=== PATIENT | female | born 1990 | race Caucasian/White ===

== ENCOUNTER 2016-12-12 19:04 | Emergency (ER) | payer OTHER ==
[~2016-12-12] VITALS: Ht 167.6 cm; Wt 121.8 kg
[2016-12-12] MEDS ORDERED: HYDR25TA PO (19:10)
[2016-12-12] MEDS ORDERED: ATEN25 PO (19:10)
[2016-12-12] MEDS ORDERED: CARV3 PO (19:10)
[2016-12-12 20:08] LABS: APPEARANCE,URINE CLEAR (CLEAR); GLUCOSE, URINE (UA) NEGATIVE (NEGATIVE); KETONES,URINE NEGATIVE (NEGATIVE); LEUKOCYTE ESTERASE ,URINE TRACE (NEGATIVE); PH,URINE 5.5 (5.0-8.0); PROTEIN,URINE SEE CONFIRM (NEGATIVE)
[2016-12-12 20:18] LABS: BASOPHILS # (AUTO) 0.04 K/uL (0.00-0.20); BASOPHILS % (AUTO) 0.4 % (0.0-2.0); EOSINOPHILS # (AUTO) 0.12 K/uL (0.00-0.70); EOSINOPHILS % (AUTO) 1.29 % (1.0-6.0); HEMATOCRIT 43.7 % (36-46); HEMOGLOBIN 14.2 g/dL (12.0-16.0); LYMPHOCYTES # (AUTO) 2.2 K/uL (1.0-4.8); LYMPHOCYTES % (AUTO) 24.3 % (22.0-44.0); MEAN CORPUSCULAR HEMOGLOBIN 26.7 pg (26.0-34.0); MEAN CORPUSCULAR HGB CONC 32.5 G/dL (31.0-37.0); MEAN CORPUSCULAR VOLUME 82 fL (80-100); MONOCYTES # (AUTO) 0.7 K/uL (0.1-1.0); MONOCYTES % (AUTO) 7.1 % (2.0-9.0); NEUTROPHILS # (AUTO) 6.1 K/uL (1.8-7.7); NEUTROPHILS % (AUTO) 66.8 % (40.0-70.0); PLATELET COUNT (AUTO) 267 K/uL (150-450); RED BLOOD CELL COUNT(AUTO) 5.31 MIL/uL (4.00-5.20); RED CELL DISTRIBUTION WIDTH 14.3 % (11.5-14.5); WHITE BLOOD COUNT (AUTO) 9.1 K/uL (4.5-11.0)
[2016-12-12 20:20] LABS: ADD UA MICROSCOPIC YES; OCCULT BLOOD,URINE SMALL (NEGATIVE); SULFOSALICYLIC ACID,URINE 4+ (Negative)
[2016-12-12 20:21] LABS: AMORPHOUS SEDIMENT,UR Few /LPF (None Seen); HYALINE CASTS, URINE 0-2 /LPF (None Seen); SQUAMOUS EPITHELIAL CELL,UR Few /LPF (None Seen)
[2016-12-12 20:26] LABS: CALCIUM, TOTAL 8.6 mg/dL (8.8-10.5); CREATININE 2.36 mg/dL (0.60-1.30); POTASSIUM 3.3 mmol/L (3.5-5.1)
[2016-12-12] MEDS ORDERED: HYDROmorphone 2 MG/ML SYRINGE IVP ONE (20:30)
[2016-12-12] MEDS ORDERED: ONDANSETRON HCL 4 MG/2 ML VIAL IVP ONE (20:30)
[2016-12-12 20:32] LABS: ALBUMIN 3.5 g/dL (3.4-5.0); BILIRUBIN,TOTAL 0.3 mg/dL (0.1-1.0); TOTAL PROTEIN, SERUM 7.8 g/dL (6.4-8.2)
[2016-12-12] MEDS ORDERED: CefTRIAXone 1 GM/DEXTROSE 50 ML IV ONE (21:00)
[2016-12-12] MEDS ORDERED: SODIUM CHLORIDE 0.9% 1,000 ML IV ONE (21:00)
[2016-12-12 21:22] VITALS: BP 128/70
== END 2016-12-12 21:24 | disposition home or self-care (01) ==
LOC: EMS 19:05
DX: N39.0 Urinary tract infection, site not specified (principal); I10 Essential (primary) hypertension; Z88.8 Allergy status to other drugs, medicaments and biological substances
CPT/HCPCS: 36415; 80053; 81001; 83690; 84703; 85025; 87086; 96365; 96375; 99284; J0696; J1170; J2405; J7030

== ENCOUNTER 2016-12-19 22:30 | Emergency (ER) | payer OTHER ==
[~2016-12-19] VITALS: Ht 167.6 cm; Wt 130.0 kg
[~2016-12-19 22:30] MED LIST: ATEN25 PO; CARV3 PO; HYDR25TA PO
[2016-12-19 23:01] LABS: APPEARANCE,URINE CLEAR (CLEAR); GLUCOSE, URINE (UA) NEGATIVE (NEGATIVE); KETONES,URINE NEGATIVE (NEGATIVE); LEUKOCYTE ESTERASE ,URINE TRACE (NEGATIVE); OCCULT BLOOD,URINE TRACE (NEGATIVE); PH,URINE 6.5 (5.0-8.0); PROTEIN,URINE SEE CONFIRM (NEGATIVE)
[2016-12-19 23:03] LABS: ADD UA MICROSCOPIC YES
[2016-12-19 23:15] LABS: SULFOSALICYLIC ACID,URINE 3+ (Negative)
[2016-12-19 23:16] LABS: SQUAMOUS EPITHELIAL CELL,UR Few /LPF (None Seen)
[2016-12-19 23:44] LABS: BASOPHILS % (AUTO) 0.5 % (0.0-2.0); EOSINOPHILS % (AUTO) 1.8 % (1.0-6.0); HEMATOCRIT 40.6 % (36-46); HEMOGLOBIN 13.6 g/dL (12.0-16.0); LYMPHOCYTES # (AUTO) 2.9 K/uL (1.0-4.8); LYMPHOCYTES % (AUTO) 29.1 % (22.0-44.0); MEAN CORPUSCULAR HGB CONC 33.5 G/dL (31.0-37.0); MEAN CORPUSCULAR VOLUME 81 fL (80-100); MONOCYTES # (AUTO) 0.6 K/uL (0.1-1.0); MONOCYTES % (AUTO) 6.5 % (2.0-9.0); NEUTROPHILS # (AUTO) 6.2 K/uL (1.8-7.7); NEUTROPHILS % (AUTO) 62.1 % (40.0-70.0); PLATELET COUNT (AUTO) 261 K/uL (150-450); RED BLOOD CELL COUNT(AUTO) 5.04 MIL/uL (4.00-5.20); RED CELL DISTRIBUTION WIDTH 14.1 % (11.5-14.5)
[2016-12-19 23:58] LABS: CREATININE 1.91 mg/dL (0.60-1.30); POTASSIUM 3.1 mmol/L (3.5-5.1)
[2016-12-20] MEDS ORDERED: MORPHINE SULFATE 4 MG/ML SYRINGE IVP ONE
[2016-12-20] MEDS ORDERED: ONDANSETRON HCL 4 MG/2 ML VIAL IVP ONE
[2016-12-20 00:04] LABS: ALBUMIN 3.5 g/dL (3.4-5.0); BILIRUBIN,TOTAL 0.3 mg/dL (0.1-1.0); TOTAL PROTEIN, SERUM 7.5 g/dL (6.4-8.2)
[2016-12-20] MEDS ORDERED: SODIUM CHLORIDE 0.9% 1,000 ML IV ONE (00:15)
[2016-12-20] MEDS ORDERED: POTASSIUM CHLORIDE 20 MEQ ER TABLET PO ONE (00:15)
[2016-12-20] MEDS ORDERED: HydrALAZINE HCL 20 MG/ML VIAL IVP ONE (01:15)
[2016-12-20] MEDS ORDERED: HYDROmorphone 2 MG/ML SYRINGE IVP ONE ×2 (01:30→04:15)
[2016-12-20] MEDS ORDERED: LABETALOL HCL 5 MG/ML 20 ML VIAL IVP ONE ×2 (03:00→05:30)
[2016-12-20 05:31] VITALS: BP 118/61
== END 2016-12-20 06:11 | disposition home or self-care (01) ==
LOC: EMS 22:31
DX: R10.9 Unspecified abdominal pain (principal); G89.29 Other chronic pain; N28.9 Disorder of kidney and ureter, unspecified; I10 Essential (primary) hypertension; Z88.8 Allergy status to other drugs, medicaments and biological substances
CPT/HCPCS: 36415; 74176; 80053; 81001; 83690; 84484; 84703; 85025; 93005 ×2; 96361; 96374; 96375; 96376; 99285; J0360; J1170; J2270; J2405; J3490; J7030

== ENCOUNTER 2017-10-04 18:28 | Inpatient (IN) | payer OTHER ==
[~2017-10-04] VITALS: Ht 167.6 cm; Wt 108.3 kg
[~2017-10-04 18:28] MED LIST changes: -ATEN25 PO; +ATEN25TA PO
[2017-10-04] MEDS ORDERED: NIFE30TA5 PO (19:04)
[2017-10-04] MEDS ORDERED: FAMO20 PO (19:04)
[2017-10-04] MEDS ORDERED: TOPI25 PO (19:04)
[2017-10-04] MEDS ORDERED: FURO40 PO (19:04)
[2017-10-04] MEDS ORDERED: ONDA4 PO (19:04)
[2017-10-04] MEDS ORDERED: ASPI81 PO (19:04)
[2017-10-04] MEDS ORDERED: FLUO-191 PO (19:04)
[2017-10-04] MEDS ORDERED: MORPHINE SULFATE 4 MG/ML SYRINGE IVP ONE ×2 (19:15→21:00)
[2017-10-04] MEDS ORDERED: LABETALOL HCL 5 MG/ML 20 ML VIAL IVP ONE (19:15)
[2017-10-04] MEDS ORDERED: KETOROLAC TROMETHAMINE 30 MG/ML VIAL IVP ONE (19:15)
[2017-10-04] MEDS ORDERED: ONDANSETRON HCL 4 MG/2 ML VIAL IVP ONE (19:15)
[2017-10-04 19:30] LABS: BASOPHILS % (AUTO) 0.3 % (0.0-2.0); EOSINOPHILS % (AUTO) 1.5 % (1.0-6.0); HEMATOCRIT 40.9 % (36-46); HEMOGLOBIN 13.8 g/dL (12.0-16.0); LYMPHOCYTES # (AUTO) 2.5 K/uL (1.0-4.8); LYMPHOCYTES % (AUTO) 33.3 % (22.0-44.0); MEAN CORPUSCULAR HEMOGLOBIN 27.8 pg (26.0-34.0); MEAN CORPUSCULAR HGB CONC 33.7 G/dL (31.0-37.0); MEAN CORPUSCULAR VOLUME 83 fL (80-100); MONOCYTES # (AUTO) 0.7 K/uL (0.1-1.0); MONOCYTES % (AUTO) 9.3 % (2.0-9.0); NEUTROPHILS # (AUTO) 4.1 K/uL (1.8-7.7); NEUTROPHILS % (AUTO) 55.6 % (40.0-70.0); PLATELET COUNT (AUTO) 236 K/uL (150-450); RED BLOOD CELL COUNT(AUTO) 4.96 MIL/uL (4.00-5.20); RED CELL DISTRIBUTION WIDTH 13.8 % (11.5-14.5)
[2017-10-04 19:49] LABS: ALBUMIN 3.3 g/dL (3.4-5.0); BILIRUBIN,TOTAL 0.3 mg/dL (0.1-1.0); CALCIUM, TOTAL 8.7 mg/dL (8.8-10.5); CREATININE 2.67 mg/dL (0.60-1.30); TOTAL PROTEIN, SERUM 7.3 g/dL (6.4-8.2)
[2017-10-04 19:56] LABS: POTASSIUM 2.9 mmol/L (3.5-5.1)
[2017-10-04] MEDS ORDERED: HydrALAZINE HCL 20 MG/ML VIAL IVP ONE ×2 (20:15→21:00)
[2017-10-04] MEDS ORDERED: POTASSIUM CHLORIDE 20 MEQ ER TABLET PO ONE (20:15)
[2017-10-04 20:27] LABS: APPEARANCE,URINE CLEAR (CLEAR); BILIRUBIN,URINE NEGATIVE (NEGATIVE); GLUCOSE, URINE (UA) NEGATIVE (NEGATIVE); KETONES,URINE NEGATIVE (NEGATIVE); LEUKOCYTE ESTERASE ,URINE NEGATIVE (NEGATIVE); NITRATE,URINE NEGATIVE (NEGATIVE); OCCULT BLOOD,URINE NEGATIVE (NEGATIVE); PH,URINE 7.5 (5.0-8.0); PROTEIN,URINE SEE CONFIRM (NEGATIVE)
[2017-10-04 20:56] LABS: RBC,URINE None Seen /HPF (0-2); SULFOSALICYLIC ACID,URINE 3+ (Negative)
[2017-10-04 20:57] LABS: BACTERIA,URINE Rare /HPF (None Seen); SQUAMOUS EPITHELIAL CELL,UR Few /LPF (None Seen); WBC,URINE 0-2 /HPF (0-5)
[2017-10-04] MEDS ORDERED: ACETAMINOPHEN 325 MG TABLET PO PRN ×2 (21:45→22:30)
[2017-10-04] MEDS ORDERED: DIAZEPAM 5 MG/ML 2 ML SYRINGE IVP ONE (21:45)
[2017-10-04] MEDS ORDERED: ONDANSETRON HCL 4 MG/2 ML VIAL IVP PRN (21:45)
[2017-10-04] MEDS ORDERED: 0.9% SODIUM CHLORIDE 10 ML SYRINGE IVP PRN (21:45)
[2017-10-04] MEDS ORDERED: MAGNESIUM OXIDE 400 MG TABLET PO PRN (22:30)
[2017-10-04] MEDS ORDERED: ALBUTEROL SULFATE 2.5 MG/0.5 ML NEB SOLUTION NEB PRN (22:30)
[2017-10-04] MEDS ORDERED: BISACODYL 10 MG RECTAL RECTAL SUPPOSITORY PR PRN (22:30)
[2017-10-04] MEDS ORDERED: POTASSIUM CHL 10 MEQ/WATER 50 ML IV PRN (22:30)
[2017-10-04] MEDS ORDERED: HydrALAZINE HCL 20 MG/ML VIAL IVP PRN (22:30)
[2017-10-04] MEDS ORDERED: POTASSIUM CHLORIDE 20 MEQ ER TABLET PO PRN (22:30)
[2017-10-04] MEDS ORDERED: MAGNESIUM HYDROXIDE SUSPENSION 30 ML UDCUP PO PRN (22:30)
[2017-10-04] MEDS ORDERED: MAGNESIUM SULFATE 2 GM in DEXTROSE 5%-WATER 50 ML IV PRN (22:30)
[2017-10-04] MEDS ORDERED: IPRATROPIUM BROMIDE 0.5 MG/2.5 ML NEB SOLUTION NEB PRN (22:30)
[2017-10-04] MEDS ORDERED: MAGNESIUM SULFATE 4 GM/WATER 100 ML IV PRN (22:30)
[2017-10-04] MEDS: SODIUM CHLORIDE 0.9% 1,000 ML IV SCH (22:58)
[2017-10-05] VITALS (8 sets, daily range): BP systolic 124–166; BP diastolic 72–115
[2017-10-05] MEDS: MORPHINE SULFATE 4 MG/ML SYRINGE IVP PRN ×4 (00:20→22:30)
[2017-10-05] MEDS ORDERED: DIAZEPAM 2 MG TABLET PO PRN (06:45)
[2017-10-05 08:03] LABS: BASOPHILS % (AUTO) 0.8 % (0.0-2.0); HEMATOCRIT 37.1 % (36-46); HEMOGLOBIN 12.8 g/dL (12.0-16.0); LYMPHOCYTES # (AUTO) 2.2 K/uL (1.0-4.8); LYMPHOCYTES % (AUTO) 33.1 % (22.0-44.0); MEAN CORPUSCULAR HEMOGLOBIN 28.4 pg (26.0-34.0); MEAN CORPUSCULAR HGB CONC 34.4 G/dL (31.0-37.0); MEAN CORPUSCULAR VOLUME 83 fL (80-100); MONOCYTES # (AUTO) 0.6 K/uL (0.1-1.0); MONOCYTES % (AUTO) 9.2 % (2.0-9.0); NEUTROPHILS # (AUTO) 3.6 K/uL (1.8-7.7); NEUTROPHILS % (AUTO) 54.9 % (40.0-70.0); PLATELET COUNT (AUTO) 211 K/uL (150-450)
[2017-10-05 08:31] LABS: BILIRUBIN,TOTAL 0.3 mg/dL (0.1-1.0); CALCIUM, TOTAL 8.6 mg/dL (8.8-10.5); CREATININE 2.57 mg/dL (0.60-1.30); MAGNESIUM 2.2 mg/dL (1.80-2.40); PHOSPHORUS 4.8 mg/dL (2.5-4.9); THYROID STIMULATING HORMONE 1.72 uIU/mL (0.36-3.74); TOTAL PROTEIN, SERUM 6.8 g/dL (6.4-8.2)
[2017-10-05 08:49] LABS: POTASSIUM 2.7 mmol/L (3.5-5.1)
[2017-10-05 08:54] LABS: HEMOGLOBIN A1C 5.2 % (4.5-6.2)
[2017-10-05] MEDS ORDERED: FUROSEMIDE 40 MG TABLET PO SCH ×2 (09:00)
[2017-10-05] MEDS ORDERED: NIFEdipine 30 MG ER TABLET PO SCH (09:00)
[2017-10-05] MEDS ORDERED: POTASSIUM CHLORIDE 20 MEQ ER TABLET PO ONE ×2 (09:30→14:00)
[2017-10-05] MEDS ORDERED: SODIUM CHLORIDE 0.9% 100 ML ONE ×2 (09:41→18:48)
[2017-10-05] MEDS: HEPARIN SODIUM,PORCINE 5,000 UNITS/ML VIAL SQ SCH ×2 (09:46→20:41)
[2017-10-05] MEDS: FAMOTIDINE 20 MG TABLET PO SCH (09:47)
[2017-10-05] MEDS: SODIUM CHLORIDE 0.9% 1,000 ML IV SCH (09:47)
[2017-10-05] MEDS: NIFEdipine 30 MG ER TABLET PO SCH (09:48)
[2017-10-05] MEDS: POTASSIUM CHL 10 MEQ/WATER 50 ML IV SCH ×4 (09:49→18:18)
[2017-10-05] MEDS: CARVEDILOL 25 MG TABLET PO SCH ×2 (10:43→20:41)
[2017-10-05 13:35] LABS: CALCIUM, TOTAL 8.6 mg/dL (8.8-10.5); CREATININE 2.38 mg/dL (0.60-1.30); MAGNESIUM 2.1 mg/dL (1.80-2.40); PHOSPHORUS 3.9 mg/dL (2.5-4.9); POTASSIUM 3.2 mmol/L (3.5-5.1)
[2017-10-05] MEDS ORDERED: CARV6 PO (15:56)
[2017-10-05] MEDS: POTASSIUM CHLORIDE IV SCH (17:44)
[2017-10-05] MEDS: SODIUM CHLORIDE 0.45% IV SCH (17:44)
[2017-10-05] MEDS: HydrALAZINE HCL 25 MG TABLET PO SCH ×2 (18:01→20:41)
[2017-10-05 19:06] LABS: CREATININE,URINE RANDOM 65.1 mg/dL (30.0-125.0)
[2017-10-05] MEDS: OxyCODONE HCL/ACETAMINOPHEN 5-325 MG TABLET PO PRN (21:07)
[2017-10-05] MEDS: ZOLPIDEM TARTRATE 5 MG TABLET PO PRN (23:43)
[2017-10-06 05:47] VITALS: BP 130/77
[2017-10-06 06:50] LABS: BASOPHILS % (AUTO) 0.4 % (0.0-2.0); EOSINOPHILS % (AUTO) 2.6 % (1.0-6.0); HEMATOCRIT 34.4 % (36-46); HEMOGLOBIN 11.8 g/dL (12.0-16.0); LYMPHOCYTES # (AUTO) 3.2 K/uL (1.0-4.8); LYMPHOCYTES % (AUTO) 46.1 % (22.0-44.0); MEAN CORPUSCULAR HEMOGLOBIN 28.8 pg (26.0-34.0); MEAN CORPUSCULAR HGB CONC 34.4 G/dL (31.0-37.0); MEAN CORPUSCULAR VOLUME 84 fL (80-100); MONOCYTES # (AUTO) 0.5 K/uL (0.1-1.0); MONOCYTES % (AUTO) 6.8 % (2.0-9.0); NEUTROPHILS # (AUTO) 3.1 K/uL (1.8-7.7); NEUTROPHILS % (AUTO) 44.1 % (40.0-70.0); PLATELET COUNT (AUTO) 188 K/uL (150-450); RED CELL DISTRIBUTION WIDTH 14.1 % (11.5-14.5)
[2017-10-06 07:01] LABS: CALCIUM, TOTAL 8.4 mg/dL (8.8-10.5); CREATININE 2.57 mg/dL (0.60-1.30); PHOSPHORUS 4.3 mg/dL (2.5-4.9); POTASSIUM 3.3 mmol/L (3.5-5.1)
[2017-10-06 07:40] VITALS: BP 142/92
[2017-10-06] MEDS ORDERED: POTASSIUM CHLORIDE 20 MEQ ER TABLET PO ONE (08:15)
[2017-10-06] MEDS: OxyCODONE HCL/ACETAMINOPHEN 5-325 MG TABLET PO PRN ×2 (08:19→17:57)
[2017-10-06] MEDS: FAMOTIDINE 20 MG TABLET PO SCH (08:19)
[2017-10-06] MEDS: HydrALAZINE HCL 25 MG TABLET PO SCH ×3 (08:19→20:51)
[2017-10-06] MEDS: CARVEDILOL 25 MG TABLET PO SCH ×2 (08:19→20:51)
[2017-10-06] MEDS: HEPARIN SODIUM,PORCINE 5,000 UNITS/ML VIAL SQ SCH ×2 (08:19→20:52)
[2017-10-06] MEDS: NIFEdipine 30 MG ER TABLET PO SCH (08:27)
[2017-10-06] MEDS: SODIUM CHLORIDE 0.45% IV SCH (09:31)
[2017-10-06] MEDS: POTASSIUM CHLORIDE IV SCH (09:31)
[2017-10-06] MEDS ORDERED: DIAZEPAM 5 MG TABLET PO PRN (09:45)
[2017-10-06] MEDS: FLUoxetine HCL 20 MG CAPSULE PO SCH (09:45)
[2017-10-06] MEDS: MORPHINE SULFATE 4 MG/ML SYRINGE IVP PRN ×2 (11:26→20:00)
[2017-10-06 11:38] VITALS: BP 128/68
[2017-10-06 13:39] LABS: CALCIUM, TOTAL 8.5 mg/dL (8.8-10.5); CREATININE 2.46 mg/dL (0.60-1.30); POTASSIUM 3.6 mmol/L (3.5-5.1)
[2017-10-06 15:41] VITALS: BP 128/60
[2017-10-06] MEDS: ONDANSETRON HCL 4 MG/2 ML VIAL IVP PRN (17:56)
[2017-10-06 19:52] VITALS: BP 126/68
[2017-10-06 22:11] VITALS: BP 129/76
[2017-10-06] MEDS: ZOLPIDEM TARTRATE 5 MG TABLET PO PRN (22:28)
[2017-10-07 06:05] VITALS: BP 135/77
[2017-10-07] MEDS: MORPHINE SULFATE 4 MG/ML SYRINGE IVP PRN ×3 (06:25→18:37)
[2017-10-07] MEDS: POTASSIUM CHLORIDE IV SCH ×3 (06:27→20:32)
[2017-10-07] MEDS: SODIUM CHLORIDE 0.45% IV SCH ×3 (06:27→20:32)
[2017-10-07 07:05] LABS: BASOPHILS % (AUTO) 0.3 % (0.0-2.0); EOSINOPHILS % (AUTO) 2.3 % (1.0-6.0); HEMATOCRIT 36.5 % (36-46); HEMOGLOBIN 12.5 g/dL (12.0-16.0); LYMPHOCYTES # (AUTO) 2.6 K/uL (1.0-4.8); LYMPHOCYTES % (AUTO) 35.5 % (22.0-44.0); MEAN CORPUSCULAR HEMOGLOBIN 28.7 pg (26.0-34.0); MEAN CORPUSCULAR HGB CONC 34.3 G/dL (31.0-37.0); MEAN CORPUSCULAR VOLUME 84 fL (80-100); MONOCYTES # (AUTO) 0.5 K/uL (0.1-1.0); MONOCYTES % (AUTO) 6.7 % (2.0-9.0); NEUTROPHILS # (AUTO) 4.1 K/uL (1.8-7.7); NEUTROPHILS % (AUTO) 55.2 % (40.0-70.0); PLATELET COUNT (AUTO) 204 K/uL (150-450); RED BLOOD CELL COUNT(AUTO) 4.37 MIL/uL (4.00-5.20); RED CELL DISTRIBUTION WIDTH 13.9 % (11.5-14.5)
[2017-10-07 07:13] LABS: CALCIUM, TOTAL 8.2 mg/dL (8.8-10.5); CREATININE 2.3 mg/dL (0.60-1.30); MAGNESIUM 2.2 mg/dL (1.80-2.40); PHOSPHORUS 3.9 mg/dL (2.5-4.9); POTASSIUM 3.3 mmol/L (3.5-5.1)
[2017-10-07 07:25] VITALS: BP 140/74
[2017-10-07] MEDS ORDERED: POTASSIUM CHLORIDE 20 MEQ ER TABLET PO ONE (08:15)
[2017-10-07] MEDS: NIFEdipine 30 MG ER TABLET PO SCH (09:16)
[2017-10-07] MEDS: CARVEDILOL 25 MG TABLET PO SCH ×2 (09:16→20:40)
[2017-10-07] MEDS: FAMOTIDINE 20 MG TABLET PO SCH (09:16)
[2017-10-07] MEDS: HydrALAZINE HCL 25 MG TABLET PO SCH ×3 (09:16→20:41)
[2017-10-07] MEDS: HEPARIN SODIUM,PORCINE 5,000 UNITS/ML VIAL SQ SCH ×2 (09:16→20:36)
[2017-10-07] MEDS: FLUoxetine HCL 20 MG CAPSULE PO SCH (09:16)
[2017-10-07 11:12] VITALS: BP 132/78
[2017-10-07] MEDS: ONDANSETRON HCL 4 MG/2 ML VIAL IVP PRN (12:05)
[2017-10-07 15:56] VITALS: BP 128/76
[2017-10-07 19:11] VITALS: BP 140/80
[2017-10-07] MEDS: OxyCODONE HCL/ACETAMINOPHEN 5-325 MG TABLET PO PRN (22:36)
[2017-10-07 23:21] VITALS: BP 123/67
[2017-10-08] MEDS: MORPHINE SULFATE 4 MG/ML SYRINGE IVP PRN ×3 (01:11→14:22)
[2017-10-08 04:26] VITALS: BP 113/67
[2017-10-08 07:08] LABS: CALCIUM, TOTAL 8.5 mg/dL (8.8-10.5); CREATININE 2.43 mg/dL (0.60-1.30); MAGNESIUM 2.2 mg/dL (1.80-2.40); PHOSPHORUS 4.9 mg/dL (2.5-4.9); POTASSIUM 3.6 mmol/L (3.5-5.1)
[2017-10-08 07:17] VITALS: BP 134/76
[2017-10-08] MEDS: HydrALAZINE HCL 25 MG TABLET PO SCH ×2 (07:59→15:53)
[2017-10-08] MEDS: FLUoxetine HCL 20 MG CAPSULE PO SCH (07:59)
[2017-10-08] MEDS: FAMOTIDINE 20 MG TABLET PO SCH (07:59)
[2017-10-08] MEDS: NIFEdipine 30 MG ER TABLET PO SCH (07:59)
[2017-10-08] MEDS: HEPARIN SODIUM,PORCINE 5,000 UNITS/ML VIAL SQ SCH (08:00)
[2017-10-08] MEDS: CARVEDILOL 25 MG TABLET PO SCH (09:00)
[2017-10-08 12:03] VITALS: BP 140/78
[2017-10-08] MEDS ORDERED: HYDR10TA31 PO (12:33)
[2017-10-08 16:01] VITALS: BP 140/94
== END 2017-10-08 17:45 | disposition home or self-care (01) | DRG 194 ==
LOC: EMS 18:29 → 5S 10-05 04:30
PROVIDERS: ADMIT Internal Medicine; ATTEND Internal Medicine
DX: I13.0 Hypertensive heart and chronic kidney disease with heart failure and stage 1 through stage 4 chronic kidney disease, or unspecified chronic kidney disease (principal); I47.2 Ventricular tachycardia; N17.9 Acute kidney failure, unspecified; K76.0 Fatty (change of) liver, not elsewhere classified; I50.21 Acute systolic (congestive) heart failure; F33.1 Major depressive disorder, recurrent, moderate; I69.351 Hemiplegia and hemiparesis following cerebral infarction affecting right dominant side; E83.51 Hypocalcemia; N26.1 Atrophy of kidney (terminal); E87.6 Hypokalemia; E66.9 Obesity, unspecified; I16.1 Hypertensive emergency; K21.9 Gastro-esophageal reflux disease without esophagitis; K29.00 Acute gastritis without bleeding; N18.9 Chronic kidney disease, unspecified; G43.909 Migraine, unspecified, not intractable, without status migrainosus; M54.5 Low back pain; F41.1 Generalized anxiety disorder; D64.9 Anemia, unspecified; Z79.82 Long term (current) use of aspirin; Z79.899 Other long term (current) drug therapy; Z88.8 Allergy status to other drugs, medicaments and biological substances; Z88.5 Allergy status to narcotic agent; Z85.05 Personal history of malignant neoplasm of liver; Z85.43 Personal history of malignant neoplasm of ovary; Z87.440 Personal history of urinary (tract) infections; Z68.38 Body mass index [BMI] 38.0-38.9, adult
CPT/HCPCS: 51702; 74176; 76770; 82306; 82570; 83036; 83735; 84100; 84156; 84300; 84443; 84540; 86038; 86160; 86162; 93005; 96374; 96375; 96376; 99285; J0360; J1644; J1885; J2270; J2405; J3480; J3490; J7030; J7050

== ENCOUNTER 2017-10-11 19:31 | Inpatient (IN) | payer OTHER ==
[~2017-10-11] VITALS: Ht 167.6 cm; Wt 108.7 kg
[~2017-10-11 19:31] MED LIST changes: +ASPI81 PO; -ATEN25TA PO; -CARV3 PO; +CARV6 PO; +FAMO20 PO; +FLUO-191 PO; +FURO40 PO; +HYDR10TA31 PO; -HYDR25TA PO; +NIFE30TA5 PO; +ONDA4 PO; +TOPI25 PO
[2017-10-11 20:09] LABS: BASOPHILS % (AUTO) 0.6 % (0.0-2.0); EOSINOPHILS % (AUTO) 1.7 % (1.0-6.0); HEMATOCRIT 39.1 % (36-46); HEMOGLOBIN 13.3 g/dL (12.0-16.0); LYMPHOCYTES # (AUTO) 2.3 K/uL (1.0-4.8); LYMPHOCYTES % (AUTO) 28.6 % (22.0-44.0); MEAN CORPUSCULAR HEMOGLOBIN 28.4 pg (26.0-34.0); MEAN CORPUSCULAR VOLUME 84 fL (80-100); MONOCYTES # (AUTO) 0.6 K/uL (0.1-1.0); MONOCYTES % (AUTO) 8.1 % (2.0-9.0); NEUTROPHILS # (AUTO) 4.9 K/uL (1.8-7.7); PLATELET COUNT (AUTO) 253 K/uL (150-450); RED BLOOD CELL COUNT(AUTO) 4.68 MIL/uL (4.00-5.20); RED CELL DISTRIBUTION WIDTH 13.6 % (11.5-14.5)
[2017-10-11 21:39] LABS: CALCIUM, TOTAL 8.8 mg/dL (8.8-10.5); CREATININE 2.05 mg/dL (0.60-1.30); POTASSIUM 3.2 mmol/L (3.5-5.1)
[2017-10-11 21:46] LABS: ALBUMIN 3.3 g/dL (3.4-5.0); BILIRUBIN,TOTAL 0.2 mg/dL (0.1-1.0); TOTAL PROTEIN, SERUM 7.4 g/dL (6.4-8.2)
[2017-10-11] MEDS ORDERED: OxyCODONE HCL/ACETAMINOPHEN 5-325 MG TABLET PO ONE (22:15)
[2017-10-11] MEDS ORDERED: 0.9% SODIUM CHLORIDE 10 ML SYRINGE IVP PRN ×2 (22:30→23:45)
[2017-10-11] MEDS ORDERED: ACETAMINOPHEN 325 MG TABLET PO PRN ×2 (22:30→23:45)
[2017-10-11] MEDS ORDERED: ONDANSETRON HCL 4 MG/2 ML VIAL IVP PRN ×2 (22:30→23:45)
[2017-10-11] MEDS ORDERED: HydrOXYzine HCL 50 MG TABLET PO ONE (22:30)
[2017-10-11] MEDS ORDERED: HydrALAZINE HCL 25 MG TABLET PO ONE (23:15)
[2017-10-11] MEDS ORDERED: CARVEDILOL 6.25 MG TABLET PO ONE (23:15)
[2017-10-11] MEDS ORDERED: CARVEDILOL 3.125 MG TABLET PO ONE (23:30)
[2017-10-11] MEDS ORDERED: ONDANSETRON HCL 4 MG TABLET PO PRN (23:45)
[2017-10-11] MEDS ORDERED: ZOLPIDEM TARTRATE 5 MG TABLET PO PRN (23:45)
[2017-10-12] VITALS (7 sets, daily range): BP systolic 142–185; BP diastolic 65–103
[2017-10-12] MEDS: MORPHINE SULFATE 4 MG/ML SYRINGE IVP PRN ×5 (00:05→22:50)
[2017-10-12] MEDS: HEPARIN SODIUM,PORCINE 5,000 UNITS/ML VIAL SQ SCH ×3 (01:15→21:06)
[2017-10-12] MEDS: DEXTROSE 5%-0.9% SODIUM CHL 1,000 ML IV SCH ×2 (01:15→20:00)
[2017-10-12 05:45] LABS: BASOPHILS % (AUTO) 0.6 % (0.0-2.0); HEMATOCRIT 36.2 % (36-46); HEMOGLOBIN 12.5 g/dL (12.0-16.0); LYMPHOCYTES # (AUTO) 2.8 K/uL (1.0-4.8); LYMPHOCYTES % (AUTO) 35.6 % (22.0-44.0); MEAN CORPUSCULAR HEMOGLOBIN 28.8 pg (26.0-34.0); MEAN CORPUSCULAR HGB CONC 34.5 G/dL (31.0-37.0); MEAN CORPUSCULAR VOLUME 83 fL (80-100); MONOCYTES # (AUTO) 0.7 K/uL (0.1-1.0); MONOCYTES % (AUTO) 9.2 % (2.0-9.0); NEUTROPHILS # (AUTO) 4.2 K/uL (1.8-7.7); NEUTROPHILS % (AUTO) 52.6 % (40.0-70.0); PLATELET COUNT (AUTO) 218 K/uL (150-450); RED BLOOD CELL COUNT(AUTO) 4.35 MIL/uL (4.00-5.20); RED CELL DISTRIBUTION WIDTH 13.8 % (11.5-14.5)
[2017-10-12 07:34] LABS: CALCIUM, TOTAL 8.5 mg/dL (8.8-10.5); CREATININE 2.08 mg/dL (0.60-1.30); MAGNESIUM 2.3 mg/dL (1.80-2.40)
[2017-10-12 07:42] LABS: POTASSIUM 2.9 mmol/L (3.5-5.1)
[2017-10-12] MEDS: PANTOPRAZOLE SODIUM 40 MG/VIAL IVP SCH (09:20)
[2017-10-12] MEDS: ASPIRIN 81 MG CHEWABLE TABLET PO SCH (09:20)
[2017-10-12] MEDS: CARVEDILOL 6.25 MG TABLET PO SCH ×2 (09:20→21:05)
[2017-10-12] MEDS: FLUoxetine HCL 20 MG CAPSULE PO SCH (09:20)
[2017-10-12] MEDS: DOCUSATE SODIUM 100 MG CAPSULE PO SCH ×2 (09:20→21:00)
[2017-10-12] MEDS: TOPIRAMATE 25 MG TABLET PO SCH ×2 (09:21→21:05)
[2017-10-12] MEDS: NIFEdipine 30 MG ER TABLET PO SCH (09:21)
[2017-10-12] MEDS: HydrALAZINE HCL 25 MG TABLET PO SCH ×3 (09:21→21:04)
[2017-10-12] MEDS: POTASSIUM CHL 10 MEQ/WATER 50 ML IV SCH ×3 (10:14→15:47)
[2017-10-12] MEDS ORDERED: POTASSIUM CHLORIDE 20 MEQ ER TABLET PO ONE (13:00)
[2017-10-12 14:35] LABS: CHLORIDE,URINE RANDOM 81 mmol/L (55-125); CREATININE,URINE RANDOM 73.1 mg/dL (30.0-125.0); OSMOLALITY,URINE 371 mOS/kg (50-1200); POTASSIUM,URINE RANDOM 31 mmol/L (12-75); PROTEIN,URINE RANDOM 188 mg/dL (0-11.9); SODIUM,URINE RANDOM 79 mmol/l (20-110)
[2017-10-12 15:26] LABS: APPEARANCE,URINE CLOUDY (CLEAR); BILIRUBIN,URINE NEGATIVE (NEGATIVE); GLUCOSE, URINE (UA) NEGATIVE (NEGATIVE); KETONES,URINE NEGATIVE (NEGATIVE); LEUKOCYTE ESTERASE ,URINE TRACE (NEGATIVE); NITRATE,URINE NEGATIVE (NEGATIVE); OCCULT BLOOD,URINE TRACE (NEGATIVE); PH,URINE 6.5 (5.0-8.0); PROTEIN,URINE SEE CONFIRM (NEGATIVE); UROBILINOGEN,URINE 0.2 mg/dL (<=1.0)
[2017-10-12 15:37] LABS: SULFOSALICYLIC ACID,URINE 3+ (Negative)
[2017-10-12 15:39] LABS: RBC,URINE 0-2 /HPF (0-2)
[2017-10-12 15:40] LABS: BACTERIA,URINE Moderate /HPF (None Seen); SQUAMOUS EPITHELIAL CELL,UR Few /LPF (None Seen)
[2017-10-13] VITALS (8 sets, daily range): BP systolic 132–164; BP diastolic 70–105
[2017-10-13] MEDS: MORPHINE SULFATE 4 MG/ML SYRINGE IVP PRN ×4 (00:10→23:45)
[2017-10-13 06:39] LABS: BILIRUBIN,TOTAL 0.3 mg/dL (0.1-1.0); CALCIUM, TOTAL 8.6 mg/dL (8.8-10.5); CREATININE 2.09 mg/dL (0.60-1.30); POTASSIUM 3.4 mmol/L (3.5-5.1); TOTAL PROTEIN, SERUM 6.8 g/dL (6.4-8.2)
[2017-10-13] MEDS: CARVEDILOL 6.25 MG TABLET PO SCH ×2 (08:01→20:16)
[2017-10-13] MEDS: PANTOPRAZOLE SODIUM 40 MG/VIAL IVP SCH (08:01)
[2017-10-13] MEDS: ASPIRIN 81 MG CHEWABLE TABLET PO SCH (08:02)
[2017-10-13] MEDS: HEPARIN SODIUM,PORCINE 5,000 UNITS/ML VIAL SQ SCH ×2 (08:02→20:16)
[2017-10-13] MEDS: DOCUSATE SODIUM 100 MG CAPSULE PO SCH ×2 (08:02→20:16)
[2017-10-13] MEDS: HydrALAZINE HCL 25 MG TABLET PO SCH (08:03)
[2017-10-13] MEDS: NIFEdipine 30 MG ER TABLET PO SCH (08:03)
[2017-10-13] MEDS: TOPIRAMATE 25 MG TABLET PO SCH ×2 (08:03→20:16)
[2017-10-13] MEDS: FLUoxetine HCL 20 MG CAPSULE PO SCH (08:03)
[2017-10-13] MEDS: HydrALAZINE HCL 50 MG TABLET PO SCH ×2 (16:20→20:16)
[2017-10-13] MEDS: DEXTROSE 5%-0.9% SODIUM CHL 1,000 ML IV SCH (16:20)
[2017-10-14] VITALS (7 sets, daily range): BP systolic 121–156; BP diastolic 79–89
[2017-10-14] MEDS: MORPHINE SULFATE 4 MG/ML SYRINGE IVP PRN ×5 (05:37→22:46)
[2017-10-14 06:01] LABS: BASOPHILS % (AUTO) 0.8 % (0.0-2.0); EOSINOPHILS % (AUTO) 1.5 % (1.0-6.0); HEMATOCRIT 36.9 % (36-46); HEMOGLOBIN 12.4 g/dL (12.0-16.0); LYMPHOCYTES # (AUTO) 2.7 K/uL (1.0-4.8); LYMPHOCYTES % (AUTO) 41.9 % (22.0-44.0); MEAN CORPUSCULAR HEMOGLOBIN 28.4 pg (26.0-34.0); MEAN CORPUSCULAR HGB CONC 33.6 G/dL (31.0-37.0); MEAN CORPUSCULAR VOLUME 85 fL (80-100); MONOCYTES # (AUTO) 0.7 K/uL (0.1-1.0); MONOCYTES % (AUTO) 11.2 % (2.0-9.0); NEUTROPHILS # (AUTO) 2.9 K/uL (1.8-7.7); NEUTROPHILS % (AUTO) 44.6 % (40.0-70.0); PLATELET COUNT (AUTO) 220 K/uL (150-450); RED BLOOD CELL COUNT(AUTO) 4.36 MIL/uL (4.00-5.20); RED CELL DISTRIBUTION WIDTH 13.8 % (11.5-14.5)
[2017-10-14 06:19] LABS: CALCIUM, TOTAL 8.4 mg/dL (8.8-10.5); CREATININE 2.2 mg/dL (0.60-1.30); POTASSIUM 3.4 mmol/L (3.5-5.1)
[2017-10-14] MEDS: PANTOPRAZOLE SODIUM 40 MG/VIAL IVP SCH (09:20)
[2017-10-14] MEDS: DOCUSATE SODIUM 100 MG CAPSULE PO SCH ×2 (09:20→21:07)
[2017-10-14] MEDS: CARVEDILOL 6.25 MG TABLET PO SCH ×2 (09:20→21:07)
[2017-10-14] MEDS: ASPIRIN 81 MG CHEWABLE TABLET PO SCH (09:20)
[2017-10-14] MEDS: HEPARIN SODIUM,PORCINE 5,000 UNITS/ML VIAL SQ SCH ×2 (09:20→21:07)
[2017-10-14] MEDS: TOPIRAMATE 25 MG TABLET PO SCH ×2 (09:21→21:07)
[2017-10-14] MEDS: NIFEdipine 30 MG ER TABLET PO SCH (09:21)
[2017-10-14] MEDS: FLUoxetine HCL 20 MG CAPSULE PO SCH (09:21)
[2017-10-14] MEDS: HydrALAZINE HCL 50 MG TABLET PO SCH ×3 (09:21→22:46)
[2017-10-14] MEDS ORDERED: DiphenhydrAMINE HCL 50 MG/ML VIAL IVP ONE (21:30)
[2017-10-15 05:17] VITALS: BP 136/71
[2017-10-15] MEDS: MORPHINE SULFATE 4 MG/ML SYRINGE IVP PRN ×3 (05:29→14:23)
[2017-10-15 06:30] LABS: BASOPHILS % (AUTO) 0.5 % (0.0-2.0); EOSINOPHILS % (AUTO) 1.8 % (1.0-6.0); HEMATOCRIT 36.4 % (36-46); HEMOGLOBIN 12.4 g/dL (12.0-16.0); LYMPHOCYTES # (AUTO) 2.7 K/uL (1.0-4.8); LYMPHOCYTES % (AUTO) 41.9 % (22.0-44.0); MEAN CORPUSCULAR HEMOGLOBIN 28.6 pg (26.0-34.0); MEAN CORPUSCULAR HGB CONC 34.1 G/dL (31.0-37.0); MEAN CORPUSCULAR VOLUME 84 fL (80-100); MONOCYTES # (AUTO) 0.5 K/uL (0.1-1.0); MONOCYTES % (AUTO) 8.5 % (2.0-9.0); NEUTROPHILS # (AUTO) 3.1 K/uL (1.8-7.7); NEUTROPHILS % (AUTO) 47.3 % (40.0-70.0); PLATELET COUNT (AUTO) 248 K/uL (150-450); RED BLOOD CELL COUNT(AUTO) 4.34 MIL/uL (4.00-5.20); RED CELL DISTRIBUTION WIDTH 13.8 % (11.5-14.5)
[2017-10-15 08:00] VITALS: BP 139/79
[2017-10-15] MEDS: HEPARIN SODIUM,PORCINE 5,000 UNITS/ML VIAL SQ SCH (08:21)
[2017-10-15] MEDS: PANTOPRAZOLE SODIUM 40 MG/VIAL IVP SCH (08:21)
[2017-10-15] MEDS: TOPIRAMATE 25 MG TABLET PO SCH ×2 (08:22→20:06)
[2017-10-15] MEDS: NIFEdipine 30 MG ER TABLET PO SCH (08:22)
[2017-10-15] MEDS: DOCUSATE SODIUM 100 MG CAPSULE PO SCH ×2 (08:22→20:06)
[2017-10-15] MEDS: HydrALAZINE HCL 50 MG TABLET PO SCH ×2 (08:22→18:06)
[2017-10-15] MEDS: FLUoxetine HCL 20 MG CAPSULE PO SCH (08:22)
[2017-10-15] MEDS: ASPIRIN 81 MG CHEWABLE TABLET PO SCH (08:22)
[2017-10-15] MEDS: CARVEDILOL 6.25 MG TABLET PO SCH ×2 (08:22→20:06)
[2017-10-15] MEDS ORDERED: SPIRONOLACTONE 25 MG TABLET PO SCH (09:45)
[2017-10-15 09:57] LABS: CALCIUM, TOTAL 8.5 mg/dL (8.8-10.5); CREATININE 2.17 mg/dL (0.60-1.30); POTASSIUM 3.3 mmol/L (3.5-5.1)
[2017-10-15] MEDS ORDERED: HYDR25TA84 PO (11:05)
[2017-10-15] MEDS ORDERED: POTASSIUM CHLORIDE 20 MEQ ER TABLET PO ONE (11:15)
[2017-10-15 13:16] VITALS: BP 110/82
[2017-10-15 16:58] VITALS: BP 139/75
[2017-10-15] MEDS ORDERED: SPIR1TAB4 PO (17:16)
[2017-10-15] MEDS ORDERED: TRAM50TA4 PO (18:53)
== END 2017-10-15 20:55 | disposition home or self-care (01) | DRG 251 ==
LOC: EMS 19:33 → 4E 22:37 → 6N 10-13 11:40
PROVIDERS: ADMIT Internal Medicine; ATTEND Internal Medicine
DX: R10.9 Unspecified abdominal pain (principal); N17.9 Acute kidney failure, unspecified; K76.0 Fatty (change of) liver, not elsewhere classified; N18.4 Chronic kidney disease, stage 4 (severe); I12.9 Hypertensive chronic kidney disease with stage 1 through stage 4 chronic kidney disease, or unspecified chronic kidney disease; E87.6 Hypokalemia; F41.1 Generalized anxiety disorder; G43.909 Migraine, unspecified, not intractable, without status migrainosus; R31.9 Hematuria, unspecified; E66.9 Obesity, unspecified; Z88.8 Allergy status to other drugs, medicaments and biological substances; Z79.899 Other long term (current) drug therapy; Z79.82 Long term (current) use of aspirin; Z85.05 Personal history of malignant neoplasm of liver; Z85.43 Personal history of malignant neoplasm of ovary; Z86.73 Personal history of transient ischemic attack (TIA), and cerebral infarction without residual deficits; Z87.440 Personal history of urinary (tract) infections; Z92.21 Personal history of antineoplastic chemotherapy; Z82.49 Family history of ischemic heart disease and other diseases of the circulatory system; Z83.3 Family history of diabetes mellitus; Z68.38 Body mass index [BMI] 38.0-38.9, adult
CPT/HCPCS: 74176; 76700; 82436; 82570; 83735; 83935; 84133; 84156; 84300; 87086; 99285; C9113; J1200; J1644; J2270; J2405; J3480; J7042

== ENCOUNTER 2017-11-01 01:29 | Inpatient (IN) | payer OTHER ==
[~2017-11-01] VITALS: Ht 167.6 cm; Wt 112.7 kg
[~2017-11-01 01:29] MED LIST changes: -HYDR10TA31 PO; +HYDR25TA84 PO; +SPIR1TAB4 PO; +TRAM50TA4 PO
[2017-11-01] MEDS ORDERED: LOSA50TA37 PO (01:39)
[2017-11-01] MEDS ORDERED: TRAZ-144 PO (02:20)
[2017-11-01] MEDS ORDERED: HYDR-4174 PO (02:20)
[2017-11-01] MEDS ORDERED: FURO40 PO (02:20)
[2017-11-01 02:25] LABS: BASOPHILS % (AUTO) 0.5 % (0.0-2.0); EOSINOPHILS % (AUTO) 1.6 % (1.0-6.0); HEMATOCRIT 36.6 % (36-46); HEMOGLOBIN 12.4 g/dL (12.0-16.0); LYMPHOCYTES # (AUTO) 2.6 K/uL (1.0-4.8); LYMPHOCYTES % (AUTO) 32.3 % (22.0-44.0); MEAN CORPUSCULAR HEMOGLOBIN 28.5 pg (26.0-34.0); MEAN CORPUSCULAR HGB CONC 33.8 G/dL (31.0-37.0); MEAN CORPUSCULAR VOLUME 84 fL (80-100); MONOCYTES # (AUTO) 0.6 K/uL (0.1-1.0); MONOCYTES % (AUTO) 7.9 % (2.0-9.0); NEUTROPHILS # (AUTO) 4.7 K/uL (1.8-7.7); NEUTROPHILS % (AUTO) 57.7 % (40.0-70.0); PLATELET COUNT (AUTO) 207 K/uL (150-450); RED BLOOD CELL COUNT(AUTO) 4.34 MIL/uL (4.00-5.20); RED CELL DISTRIBUTION WIDTH 13.6 % (11.5-14.5)
[2017-11-01 02:34] LABS: ANION GAP 11 mmol/L (8-16); CALCIUM, TOTAL 8.4 mg/dL (8.8-10.5); CARBON DIOXIDE 21 mmol/L (22-29); CHLORIDE 107 mmol/L (98-107); CREATININE 2.71 mg/dL (0.60-1.30); GLOMERULAR FILTR. RATE CALC 21 mL/min (>60); GLUCOSE,RANDOM 87 mg/dL (70-110); POTASSIUM 3.9 mmol/L (3.5-5.1); SODIUM SERUM 139 mmol/L (136-145); UREA NITROGEN, BLOOD 25 mg/dL (7-18)
[2017-11-01 02:40] LABS: ALANINE AMINOTRANSFERASE 21 U/L (12-78); ALBUMIN 3.2 g/dL (3.4-5.0); ALKALINE PHOSPHATASE 73 U/L (46-116); ASPARTATE AMINOTRANSFERASE 10 U/L (15-37); BILIRUBIN,TOTAL 0.2 mg/dL (0.1-1.0); LIPASE 193 U/L (73-393); TOTAL PROTEIN, SERUM 6.8 g/dL (6.4-8.2)
[2017-11-01] MEDS ORDERED: MORPHINE SULFATE 2 MG/ML SYRINGE IVP ONE (02:45)
[2017-11-01] MEDS ORDERED: DiphenhydrAMINE HCL 50 MG/ML VIAL IVP ONE (02:45)
[2017-11-01] MEDS ORDERED: HYDR-3112 PO (02:55)
[2017-11-01] MEDS ORDERED: ASPI81TA87 PO (02:55)
[2017-11-01] MEDS ORDERED: ONDA4TAB7 SL (02:55)
[2017-11-01] MEDS ORDERED: TRAM50TA4 PO (02:55)
[2017-11-01] MEDS ORDERED: ACETAMINOPHEN 325 MG TABLET PO PRN (04:00)
[2017-11-01] MEDS ORDERED: MORPHINE SULFATE 4 MG/ML SYRINGE IVP PRN (04:00)
[2017-11-01] MEDS ORDERED: 0.9% SODIUM CHLORIDE 10 ML SYRINGE IVP PRN ×2 (04:00→08:45)
[2017-11-01] MEDS ORDERED: DiphenhydrAMINE HCL 50 MG/ML VIAL IVP PRN (04:00)
[2017-11-01] MEDS ORDERED: ONDANSETRON HCL 4 MG/2 ML VIAL IVP PRN ×2 (04:00→08:45)
[2017-11-01 05:30] VITALS: BP 109/72
[2017-11-01] MEDS ORDERED: TraMADol HCL 50 MG TABLET PO PRN (08:45)
[2017-11-01] MEDS ORDERED: ZOLPIDEM TARTRATE 5 MG TABLET PO PRN (08:45)
[2017-11-01] MEDS ORDERED: FUROSEMIDE 40 MG TABLET PO SCH (09:00)
[2017-11-01] MEDS: HydrALAZINE HCL 50 MG TABLET PO SCH ×3 (09:00→21:07)
[2017-11-01] MEDS: CARVEDILOL 6.25 MG TABLET PO SCH ×2 (09:00→21:00)
[2017-11-01] MEDS ORDERED: MORPHINE SULFATE 2 MG/ML SYRINGE IVP PRN (09:00)
[2017-11-01] MEDS ORDERED: LOSARTAN POTASSIUM 50 MG TABLET PO SCH (09:00)
[2017-11-01] MEDS: FLUoxetine HCL 20 MG CAPSULE PO SCH (09:46)
[2017-11-01] MEDS: ASPIRIN 81 MG EC TABLET PO SCH (09:46)
[2017-11-01] MEDS: TOPIRAMATE 25 MG TABLET PO SCH ×2 (09:46→21:00)
[2017-11-01] MEDS: TraZODone HCL 50 MG TABLET PO SCH ×2 (09:46→21:00)
[2017-11-01] MEDS: NIFEdipine 30 MG ER TABLET PO SCH (09:46)
[2017-11-01] MEDS: PANTOPRAZOLE SODIUM 40 MG/VIAL IVP SCH (09:47)
[2017-11-01] MEDS ORDERED: SPIR25 PO (11:02)
[2017-11-01 11:38] VITALS: BP 108/66
[2017-11-01] MEDS: MORPHINE SULFATE 4 MG/ML SYRINGE IVP PRN ×3 (12:09→21:07)
[2017-11-01 15:49] VITALS: BP 137/71
[2017-11-01] MEDS: HEPARIN SODIUM,PORCINE 5,000 UNITS/ML VIAL SQ SCH (17:20)
[2017-11-01 19:25] VITALS: BP 116/75
[2017-11-01 20:55] LABS: CREATININE,URINE RANDOM 139.8 mg/dL (30.0-125.0)
[2017-11-01 20:57] LABS: AMPHET/METH SCREEN,URINE NEGATIVE (NEGATIVE); BARBITURATE SCREEN, URINE NEGATIVE (NEGATIVE); BENZODIAZEPINES SCREEN,URINE NEGATIVE (NEGATIVE); CANNABINOID SCREEN,URINE NEGATIVE (NEGATIVE); COCAINE SCREEN,URINE NEGATIVE (NEGATIVE); METHADONE SCREEN, URINE NEGATIVE (NEGATIVE); OPIATE SCREEN,URINE POSITIVE (NEGATIVE)
[2017-11-01 20:58] LABS: APPEARANCE,URINE CLOUDY (CLEAR); BILIRUBIN,URINE NEGATIVE (NEGATIVE); GLUCOSE, URINE (UA) NEGATIVE (NEGATIVE); KETONES,URINE NEGATIVE (NEGATIVE); LEUKOCYTE ESTERASE ,URINE TRACE (NEGATIVE); NITRATE,URINE NEGATIVE (NEGATIVE); OCCULT BLOOD,URINE LARGE (NEGATIVE); PH,URINE 5.5 (5.0-8.0); PROTEIN,URINE POS 1+ (NEGATIVE); UROBILINOGEN,URINE 0.2 mg/dL (<=1.0)
[2017-11-01 20:59] LABS: PHENCYCLIDINE SCREEN,URINE NEGATIVE (NEGATIVE)
[2017-11-01 21:27] LABS: BACTERIA,URINE Few /HPF (None Seen); RBC,URINE 51-100 /HPF (0-2); SQUAMOUS EPITHELIAL CELL,UR Moderate /LPF (None Seen); YEAST,URINE Rare /HPF (None Seen)
[2017-11-01 23:23] VITALS: BP 109/60
[2017-11-02] MEDS: HEPARIN SODIUM,PORCINE 5,000 UNITS/ML VIAL SQ SCH ×3 (00:05→19:53)
[2017-11-02 04:20] VITALS: BP 118/59
[2017-11-02] MEDS: MORPHINE SULFATE 4 MG/ML SYRINGE IVP PRN ×4 (04:28→19:54)
[2017-11-02 06:57] LABS: BASOPHILS % (AUTO) 0.3 % (0.0-2.0); EOSINOPHILS % (AUTO) 1.3 % (1.0-6.0); HEMATOCRIT 35.5 % (36-46); LYMPHOCYTES # (AUTO) 2.4 K/uL (1.0-4.8); LYMPHOCYTES % (AUTO) 33.4 % (22.0-44.0); MEAN CORPUSCULAR HEMOGLOBIN 28.5 pg (26.0-34.0); MEAN CORPUSCULAR HGB CONC 33.8 G/dL (31.0-37.0); MEAN CORPUSCULAR VOLUME 84 fL (80-100); MONOCYTES # (AUTO) 0.5 K/uL (0.1-1.0); MONOCYTES % (AUTO) 7.1 % (2.0-9.0); NEUTROPHILS # (AUTO) 4.1 K/uL (1.8-7.7); NEUTROPHILS % (AUTO) 57.9 % (40.0-70.0); PLATELET COUNT (AUTO) 208 K/uL (150-450); RED CELL DISTRIBUTION WIDTH 13.5 % (11.5-14.5)
[2017-11-02 07:22] VITALS: BP 149/82
[2017-11-02 07:32] LABS: CALCIUM, TOTAL 8.2 mg/dL (8.8-10.5); CREATININE 2.59 mg/dL (0.60-1.30); MAGNESIUM 2.2 mg/dL (1.80-2.40); POTASSIUM 3.7 mmol/L (3.5-5.1)
[2017-11-02] MEDS: NIFEdipine 30 MG ER TABLET PO SCH (09:09)
[2017-11-02] MEDS: PANTOPRAZOLE SODIUM 40 MG/VIAL IVP SCH ×2 (09:09→09:18)
[2017-11-02] MEDS: TOPIRAMATE 25 MG TABLET PO SCH ×2 (09:09→19:53)
[2017-11-02] MEDS: FLUoxetine HCL 20 MG CAPSULE PO SCH (09:09)
[2017-11-02] MEDS: ASPIRIN 81 MG EC TABLET PO SCH (09:33)
[2017-11-02] MEDS: CARVEDILOL 6.25 MG TABLET PO SCH ×2 (09:33→19:53)
[2017-11-02] MEDS: HydrALAZINE HCL 50 MG TABLET PO SCH ×3 (10:43→19:53)
[2017-11-02] MEDS: TraZODone HCL 50 MG TABLET PO SCH ×2 (10:43→21:29)
[2017-11-02] MEDS: SPIRONOLACTONE 25 MG TABLET PO SCH (11:14)
[2017-11-02 11:36] VITALS: BP 112/66
[2017-11-02 15:18] VITALS: BP 116/71
[2017-11-02] MEDS ORDERED: CefTRIAXone SODIUM 1 GM in DEXTROSE 5%-WATER 10 ML IV SCH (16:00)
[2017-11-02 19:50] VITALS: BP 101/61
[2017-11-02 23:48] VITALS: BP 98/57
[2017-11-03] MEDS: MORPHINE SULFATE 4 MG/ML SYRINGE IVP PRN ×2 (04:57→08:37)
[2017-11-03 05:09] VITALS: BP 117/81
[2017-11-03 07:14] LABS: CALCIUM, TOTAL 8.4 mg/dL (8.8-10.5); CREATININE 2.5 mg/dL (0.60-1.30); POTASSIUM 3.8 mmol/L (3.5-5.1)
[2017-11-03 07:42] VITALS: BP 110/70
[2017-11-03] MEDS: FLUoxetine HCL 20 MG CAPSULE PO SCH (08:28)
[2017-11-03] MEDS: NIFEdipine 30 MG ER TABLET PO SCH (08:28)
[2017-11-03] MEDS: TOPIRAMATE 25 MG TABLET PO SCH (08:29)
[2017-11-03] MEDS: ASPIRIN 81 MG EC TABLET PO SCH (08:34)
[2017-11-03] MEDS: SPIRONOLACTONE 25 MG TABLET PO SCH (08:36)
[2017-11-03] MEDS: HEPARIN SODIUM,PORCINE 5,000 UNITS/ML VIAL SQ SCH (08:36)
[2017-11-03] MEDS: CARVEDILOL 6.25 MG TABLET PO SCH (08:36)
[2017-11-03] MEDS: TraZODone HCL 50 MG TABLET PO SCH (08:36)
[2017-11-03] MEDS: HydrALAZINE HCL 50 MG TABLET PO SCH (08:42)
[2017-11-03 11:25] VITALS: BP 105/66
== END 2017-11-03 12:55 | disposition home or self-care (01) | DRG 469 ==
LOC: EMS 01:30 → 6N 04:14 → 4E 11-02 10:19
PROVIDERS: ADMIT Internal Medicine; ATTEND Internal Medicine
DX: N17.9 Acute kidney failure, unspecified (principal); E44.0 Moderate protein-calorie malnutrition; N18.4 Chronic kidney disease, stage 4 (severe); E66.01 Morbid (severe) obesity due to excess calories; E87.6 Hypokalemia; F41.1 Generalized anxiety disorder; G89.29 Other chronic pain; I12.9 Hypertensive chronic kidney disease with stage 1 through stage 4 chronic kidney disease, or unspecified chronic kidney disease; G43.909 Migraine, unspecified, not intractable, without status migrainosus; N39.0 Urinary tract infection, site not specified; Z90.49 Acquired absence of other specified parts of digestive tract; Z79.899 Other long term (current) drug therapy; Z88.8 Allergy status to other drugs, medicaments and biological substances; Z91.013 Allergy to seafood; Z91.012 Allergy to eggs; Z92.21 Personal history of antineoplastic chemotherapy; Z85.05 Personal history of malignant neoplasm of liver; Z85.43 Personal history of malignant neoplasm of ovary; Z86.73 Personal history of transient ischemic attack (TIA), and cerebral infarction without residual deficits; Z82.49 Family history of ischemic heart disease and other diseases of the circulatory system; Z68.41 Body mass index [BMI] 40.0-44.9, adult
CPT/HCPCS: 76830; 76856; 82570; 83735; 84156; 87081; 87086; 96374; 96375; 99285; C9113; G0480; J0696; J1200; J1644; J2270; J7060

== ENCOUNTER 2017-12-09 22:27 | Emergency (ER) | payer OTHER ==
[~2017-12-09] VITALS: Ht 167.6 cm; Wt 100.0 kg
[~2017-12-09 22:27] MED LIST changes: -ASPI81 PO; +ASPI81TA87 PO; +HYDR-4174 PO; -HYDR25TA84 PO; -ONDA4 PO; +ONDA4TAB7 SL; -SPIR1TAB4 PO; +SPIR25 PO; -TRAM50TA4 PO
[2017-12-09] MEDS ORDERED: DEPOP150I IM (22:56)
[2017-12-09 23:00] LABS: BASOPHILS % (AUTO) 0.5 % (0.0-2.0); EOSINOPHILS % (AUTO) 1.8 % (1.0-6.0); HEMATOCRIT 35.4 % (36-46); HEMOGLOBIN 11.9 g/dL (12.0-16.0); LYMPHOCYTES % (AUTO) 37.8 % (22.0-44.0); MEAN CORPUSCULAR HEMOGLOBIN 27.3 pg (26.0-34.0); MEAN CORPUSCULAR HGB CONC 33.6 G/dL (31.0-37.0); MEAN CORPUSCULAR VOLUME 81 fL (80-100); MONOCYTES # (AUTO) 0.8 K/uL (0.1-1.0); MONOCYTES % (AUTO) 10.5 % (2.0-9.0); NEUTROPHILS % (AUTO) 49.4 % (40.0-70.0); PLATELET COUNT (AUTO) 231 K/uL (150-450); RED BLOOD CELL COUNT(AUTO) 4.35 MIL/uL (4.00-5.20); RED CELL DISTRIBUTION WIDTH 13.9 % (11.5-14.5)
[2017-12-10 00:02] LABS: CALCIUM, TOTAL 8.4 mg/dL (8.8-10.5); CREATININE 2.22 mg/dL (0.60-1.30); POTASSIUM 3.7 mmol/L (3.5-5.1)
[2017-12-10 00:07] LABS: ALBUMIN 3.4 g/dL (3.4-5.0); BILIRUBIN,TOTAL 0.2 mg/dL (0.1-1.0); TOTAL PROTEIN, SERUM 6.9 g/dL (6.4-8.2)
[2017-12-10 00:38] LABS: APPEARANCE,URINE CLEAR (CLEAR); BILIRUBIN,URINE NEGATIVE (NEGATIVE); GLUCOSE, URINE (UA) NEGATIVE (NEGATIVE); KETONES,URINE NEGATIVE (NEGATIVE); LEUKOCYTE ESTERASE ,URINE NEGATIVE (NEGATIVE); NITRATE,URINE NEGATIVE (NEGATIVE); OCCULT BLOOD,URINE NEGATIVE (NEGATIVE); PROTEIN,URINE SEE CONFIRM (NEGATIVE); UROBILINOGEN,URINE 0.2 mg/dL (<=1.0)
[2017-12-10 00:50] LABS: SULFOSALICYLIC ACID,URINE 3+ (Negative)
[2017-12-10 00:51] LABS: BACTERIA,URINE Rare /HPF (None Seen); RBC,URINE 0-2 /HPF (0-2); SQUAMOUS EPITHELIAL CELL,UR Rare /LPF (None Seen); WBC,URINE 0-2 /HPF (0-5)
[2017-12-10] MEDS ORDERED: MORPHINE SULFATE 4 MG/ML SYRINGE IM ONE (01:30)
[2017-12-10] MEDS ORDERED: HydrALAZINE HCL 25 MG TABLET PO ONE (03:00)
[2017-12-10] MEDS ORDERED: NIFEdipine 30 MG ER TABLET PO ONE (03:00)
[2017-12-10 04:21] VITALS: BP 175/110
== END 2017-12-10 04:47 | disposition home or self-care (01) ==
LOC: EMS 22:28
DX: R33.9 Retention of urine, unspecified (principal); I10 Essential (primary) hypertension; Z79.899 Other long term (current) drug therapy; Z91.012 Allergy to eggs; Z88.8 Allergy status to other drugs, medicaments and biological substances
CPT/HCPCS: 36415; 51702; 80053; 81001; 83690; 84703; 85025; 96372; 99284; J2270

== ENCOUNTER 2017-12-31 19:41 | Inpatient (IN) | payer OTHER ==
[~2017-12-31] VITALS: Ht 167.6 cm; Wt 108.2 kg
[~2017-12-31 19:41] MED LIST changes: +DEPOP150I IM
[2017-12-31] MEDS ORDERED: LOSA50TA37 PO (20:31)
[2017-12-31] MEDS ORDERED: CLON-570 PO (20:31)
[2017-12-31] MEDS ORDERED: CETI-290 PO (20:31)
[2017-12-31] MEDS ORDERED: ORLI60CA2 PO (20:31)
[2017-12-31] MEDS ORDERED: HYDR25TA PO (20:31)
[2017-12-31] MEDS ORDERED: AMLO-512 PO (20:31)
[2017-12-31] MEDS ORDERED: ATEN100T PO (20:31)
[2017-12-31] MEDS ORDERED: SIMV-260 PO (20:31)
[2017-12-31] MEDS ORDERED: CITA-106 PO (20:31)
[2017-12-31 21:58] LABS: BASOPHILS % (AUTO) 0.6 % (0.0-2.0); EOSINOPHILS % (AUTO) 1.5 % (1.0-6.0); HEMOGLOBIN 12.7 g/dL (12.0-16.0); LYMPHOCYTES % (AUTO) 30.4 % (22.0-44.0); MEAN CORPUSCULAR HEMOGLOBIN 26.5 pg (26.0-34.0); MEAN CORPUSCULAR HGB CONC 33.5 G/dL (31.0-37.0); MEAN CORPUSCULAR VOLUME 79 fL (80-100); MONOCYTES # (AUTO) 0.8 K/uL (0.1-1.0); MONOCYTES % (AUTO) 7.7 % (2.0-9.0); NEUTROPHILS % (AUTO) 59.8 % (40.0-70.0); PLATELET COUNT (AUTO) 326 K/uL (150-450); RED CELL DISTRIBUTION WIDTH 14.2 % (11.5-14.5)
[2017-12-31 22:07] LABS: CALCIUM, TOTAL 8.7 mg/dL (8.8-10.5); CREATININE 2.35 mg/dL (0.60-1.30); POTASSIUM 3.2 mmol/L (3.5-5.1)
[2017-12-31 22:15] LABS: ALBUMIN 3.4 g/dL (3.4-5.0); BILIRUBIN,TOTAL 0.2 mg/dL (0.1-1.0); TOTAL PROTEIN, SERUM 7.8 g/dL (6.4-8.2)
[2017-12-31] MEDS ORDERED: ONDANSETRON HCL 4 MG/2 ML VIAL IVP ONE (23:30)
[2017-12-31] MEDS ORDERED: SODIUM CHLORIDE 0.9% 1,000 ML IV ONE (23:30)
[2017-12-31] MEDS ORDERED: HYDROmorphone 2 MG/ML SYRINGE IVP ONE (23:30)
[2018-01-01] MEDS ORDERED: POTASSIUM CHLORIDE 20 MEQ ER TABLET PO ONE (00:30)
[2018-01-01] MEDS ORDERED: LABETALOL HCL 5 MG/ML 20 ML VIAL IVP ONE ×3 (00:30→06:45)
[2018-01-01] MEDS ORDERED: HYDROmorphone 2 MG/ML SYRINGE IVP ONE ×2 (02:45→07:00)
[2018-01-01] MEDS ORDERED: ONDANSETRON HCL 4 MG/2 ML VIAL IVP PRN (03:00)
[2018-01-01] MEDS ORDERED: ACETAMINOPHEN 325 MG TABLET PO PRN ×2 (03:00→08:45)
[2018-01-01] MEDS ORDERED: 0.9% SODIUM CHLORIDE 10 ML SYRINGE IVP PRN (03:00)
[2018-01-01] MEDS ORDERED: HydrALAZINE HCL 20 MG/ML VIAL IVP ONE ×2 (03:30→04:30)
[2018-01-01] MEDS ORDERED: AmLODIPine BESYLATE 10 MG TABLET PO ONE (04:30)
[2018-01-01] MEDS ORDERED: CARVEDILOL 6.25 MG TABLET PO ONE (04:30)
[2018-01-01] MEDS ORDERED: CARVEDILOL 3.125 MG TABLET PO ONE (05:15)
[2018-01-01] MEDS ORDERED: AmLODIPine BESYLATE 5 MG TABLET PO ONE (05:15)
[2018-01-01 07:44] LABS: APPEARANCE,URINE CLEAR (CLEAR); BILIRUBIN,URINE NEGATIVE (NEGATIVE); GLUCOSE, URINE (UA) NEGATIVE (NEGATIVE); KETONES,URINE NEGATIVE (NEGATIVE); LEUKOCYTE ESTERASE ,URINE NEGATIVE (NEGATIVE); NITRATE,URINE NEGATIVE (NEGATIVE); OCCULT BLOOD,URINE NEGATIVE (NEGATIVE); PH,URINE 6.5 (5.0-8.0); PROTEIN,URINE SEE CONFIRM (NEGATIVE); UROBILINOGEN,URINE 0.2 mg/dL (<=1.0)
[2018-01-01 07:51] LABS: SULFOSALICYLIC ACID,URINE 3+ (Negative)
[2018-01-01 07:53] LABS: BACTERIA,URINE Rare /HPF (None Seen); RBC,URINE 0-2 /HPF (0-2)
[2018-01-01 07:54] LABS: SQUAMOUS EPITHELIAL CELL,UR Moderate /LPF (None Seen)
[2018-01-01] MEDS ORDERED: SODIUM CHLORIDE 0.9% 1,000 ML IV ONE (08:45)
[2018-01-01] MEDS ORDERED: BISACODYL 10 MG RECTAL RECTAL SUPPOSITORY PR PRN (08:45)
[2018-01-01] MEDS ORDERED: CloNIDine HCL 0.1 MG TABLET PO PRN (08:45)
[2018-01-01] MEDS: DOCUSATE SODIUM 100 MG CAPSULE PO SCH ×2 (09:00→20:22)
[2018-01-01] MEDS: PANTOPRAZOLE SODIUM 40 MG DR TABLET PO SCH (09:27)
[2018-01-01 09:30] VITALS: BP 135/72
[2018-01-01] MEDS ORDERED: HydrALAZINE HCL 20 MG/ML VIAL IVP PRN (09:45)
[2018-01-01] MEDS: HYDROmorphone 2 MG/ML SYRINGE IVP PRN ×2 (11:03→17:55)
[2018-01-01 11:06] VITALS: BP 132/83
[2018-01-01 16:09] VITALS: BP 140/75
[2018-01-01 19:28] VITALS: BP 147/86
[2018-01-01 23:42] VITALS: BP 134/76
[2018-01-02] MEDS: HYDROmorphone 2 MG/ML SYRINGE IVP PRN ×2 (00:45→05:31)
[2018-01-02 04:18] VITALS: BP 148/87
[2018-01-02 06:45] LABS: CALCIUM, TOTAL 7.9 mg/dL (8.8-10.5); CREATININE 2.05 mg/dL (0.60-1.30); POTASSIUM 3.4 mmol/L (3.5-5.1)
[2018-01-02 07:15] VITALS: BP 149/88
[2018-01-02] MEDS: PANTOPRAZOLE SODIUM 40 MG DR TABLET PO SCH (08:41)
[2018-01-02] MEDS: DOCUSATE SODIUM 100 MG CAPSULE PO SCH (08:46)
[2018-01-02] MEDS: OxyCODONE HCL/ACETAMINOPHEN 5-325 MG TABLET PO PRN ×2 (08:46→11:57)
[2018-01-02 11:14] VITALS: BP 157/96
[2018-01-02] MEDS ORDERED: AmLODIPine BESYLATE 10 MG TABLET PO SCH (11:45)
== END 2018-01-02 14:00 | disposition home or self-care (01) | DRG 199 ==
LOC: EMS 19:42 → UNDOADMIN 01-01 02:49 → 5S 01-01 02:49
PROVIDERS: ADMIT Internal Medicine; ATTEND Internal Medicine
DX: I16.1 Hypertensive emergency (principal); N17.9 Acute kidney failure, unspecified; N18.3 Chronic kidney disease, stage 3 (moderate); I12.9 Hypertensive chronic kidney disease with stage 1 through stage 4 chronic kidney disease, or unspecified chronic kidney disease; E66.9 Obesity, unspecified; F32.9 Major depressive disorder, single episode, unspecified; K21.9 Gastro-esophageal reflux disease without esophagitis; G43.909 Migraine, unspecified, not intractable, without status migrainosus; N83.201 Unspecified ovarian cyst, right side; Z86.73 Personal history of transient ischemic attack (TIA), and cerebral infarction without residual deficits; Z91.19 Patient's noncompliance with other medical treatment and regimen; Z68.38 Body mass index [BMI] 38.0-38.9, adult; Z88.8 Allergy status to other drugs, medicaments and biological substances; Z88.6 Allergy status to analgesic agent; Z91.012 Allergy to eggs; Z79.82 Long term (current) use of aspirin; Z79.899 Other long term (current) drug therapy; Z85.05 Personal history of malignant neoplasm of liver; Z82.49 Family history of ischemic heart disease and other diseases of the circulatory system; Z85.43 Personal history of malignant neoplasm of ovary
CPT/HCPCS: 76856; 87086; 93005; 96374; 96375; 96376; 99285; J0360; J1170; J2405; J3490; J7030

== ENCOUNTER 2018-01-19 20:11 | Emergency (ER) | payer OTHER ==
[~2018-01-19] VITALS: Ht 167.6 cm; Wt 109.1 kg
[~2018-01-19 20:11] MED LIST changes: +AMLO-512 PO; -CARV6 PO; +CITA-106 PO; -DEPOP150I IM; -FLUO-191 PO; -FURO40 PO; -HYDR-4174 PO; -NIFE30TA5 PO; -ONDA4TAB7 SL; -SPIR25 PO
[2018-01-19 21:38] LABS: EOSINOPHILS % (AUTO) 2.3 % (1.0-6.0); HEMATOCRIT 35.9 % (36-46); HEMOGLOBIN 12.3 g/dL (12.0-16.0); LYMPHOCYTES # (AUTO) 3.1 K/uL (1.0-4.8); LYMPHOCYTES % (AUTO) 34.9 % (22.0-44.0); MEAN CORPUSCULAR HEMOGLOBIN 26.6 pg (26.0-34.0); MEAN CORPUSCULAR HGB CONC 34.2 G/dL (31.0-37.0); MEAN CORPUSCULAR VOLUME 78 fL (80-100); MONOCYTES # (AUTO) 0.7 K/uL (0.1-1.0); MONOCYTES % (AUTO) 8.4 % (2.0-9.0); NEUTROPHILS # (AUTO) 4.7 K/uL (1.8-7.7); NEUTROPHILS % (AUTO) 53.4 % (40.0-70.0); PLATELET COUNT (AUTO) 266 K/uL (150-450); RED BLOOD CELL COUNT(AUTO) 4.61 MIL/uL (4.00-5.20); RED CELL DISTRIBUTION WIDTH 14.6 % (11.5-14.5)
[2018-01-19 21:55] LABS: ALBUMIN 2.9 g/dL (3.4-5.0); BILIRUBIN,TOTAL 0.3 mg/dL (0.1-1.0); CALCIUM, TOTAL 8.5 mg/dL (8.8-10.5); CREATININE 2.51 mg/dL (0.60-1.30); TOTAL PROTEIN, SERUM 6.9 g/dL (6.4-8.2)
[2018-01-20] MEDS ORDERED: HydrALAZINE HCL 20 MG/ML VIAL IVP ONE ×2 (00:15→02:15)
[2018-01-20] MEDS ORDERED: MORPHINE SULFATE 4 MG/ML SYRINGE IVP ONE ×2 (00:15→02:15)
[2018-01-20] MEDS ORDERED: ONDANSETRON HCL 4 MG/2 ML VIAL IVP ONE (00:15)
[2018-01-20 00:50] LABS: APPEARANCE,URINE CLOUDY (CLEAR); BILIRUBIN,URINE NEGATIVE (NEGATIVE); GLUCOSE, URINE (UA) NEGATIVE (NEGATIVE); KETONES,URINE NEGATIVE (NEGATIVE); LEUKOCYTE ESTERASE ,URINE TRACE (NEGATIVE); NITRATE,URINE NEGATIVE (NEGATIVE); OCCULT BLOOD,URINE SMALL (NEGATIVE); PROTEIN,URINE SEE CONFIRM (NEGATIVE); UROBILINOGEN,URINE 0.2 mg/dL (<=1.0)
[2018-01-20 01:25] LABS: BACTERIA,URINE Few /HPF (None Seen); SQUAMOUS EPITHELIAL CELL,UR Moderate /LPF (None Seen); SULFOSALICYLIC ACID,URINE 2+ (Negative)
[2018-01-20] MEDS ORDERED: POTASSIUM CHLORIDE 20 MEQ ER TABLET PO ONE (02:00)
[2018-01-20] MEDS ORDERED: LOSA100T29 PO (03:37)
[2018-01-20] MEDS ORDERED: TRAZ-220 PO (03:37)
[2018-01-20] MEDS ORDERED: AmLODIPine BESYLATE 5 MG TABLET PO ONE (05:00)
[2018-01-20 05:05] VITALS: BP 181/130
== END 2018-01-20 05:26 | disposition home or self-care (01) ==
LOC: EMS 20:12
DX: N39.0 Urinary tract infection, site not specified (principal); I12.9 Hypertensive chronic kidney disease with stage 1 through stage 4 chronic kidney disease, or unspecified chronic kidney disease; G89.29 Other chronic pain; R10.9 Unspecified abdominal pain; E87.6 Hypokalemia; F32.9 Major depressive disorder, single episode, unspecified; K21.9 Gastro-esophageal reflux disease without esophagitis; G43.909 Migraine, unspecified, not intractable, without status migrainosus; N18.3 Chronic kidney disease, stage 3 (moderate); I25.2 Old myocardial infarction; Z91.012 Allergy to eggs; Z88.8 Allergy status to other drugs, medicaments and biological substances; Z79.82 Long term (current) use of aspirin; Z79.899 Other long term (current) drug therapy
CPT/HCPCS: 36415; 80053; 81001; 81002; 82150; 83690; 84703; 85025; 87086; 96374; 96375; 96376; 99284; J0360; J2270; J2405

== ENCOUNTER 2018-03-17 19:14 | Inpatient (IN) | payer OTHER ==
[~2018-03-17] VITALS: Ht 167.6 cm; Wt 117.0 kg
[~2018-03-17 19:14] MED LIST changes: +LOSA100T20 PO; +TRAZ-220 PO
[2018-03-17] MEDS ORDERED: HYDR25TA PO (19:29)
[2018-03-17] MEDS ORDERED: ATEN100T PO (19:29)
[2018-03-17 19:46] LABS: BASOPHILS % (AUTO) 0.9 % (0.0-2.0); HEMATOCRIT 37.7 % (36-46); HEMOGLOBIN 12.6 g/dL (12.0-16.0); LYMPHOCYTES # (AUTO) 2.2 K/uL (1.0-4.8); LYMPHOCYTES % (AUTO) 23.2 % (22.0-44.0); MEAN CORPUSCULAR HEMOGLOBIN 25.4 pg (26.0-34.0); MEAN CORPUSCULAR HGB CONC 33.3 G/dL (31.0-37.0); MEAN CORPUSCULAR VOLUME 76 fL (80-100); MONOCYTES # (AUTO) 0.7 K/uL (0.1-1.0); MONOCYTES % (AUTO) 7.7 % (2.0-9.0); NEUTROPHILS # (AUTO) 6.4 K/uL (1.8-7.7); NEUTROPHILS % (AUTO) 67.2 % (40.0-70.0); PLATELET COUNT (AUTO) 271 K/uL (150-450); RED BLOOD CELL COUNT(AUTO) 4.95 MIL/uL (4.00-5.20); RED CELL DISTRIBUTION WIDTH 15.7 % (11.5-14.5)
[2018-03-17 20:05] LABS: INR 0.9 (0.9-1.1); PROTHROMBIN TIME 9.1 SEC (9.4-11.6)
[2018-03-17 20:07] LABS: ALBUMIN 2.9 g/dL (3.4-5.0); BILIRUBIN,TOTAL 0.2 mg/dL (0.1-1.0); CALCIUM, TOTAL 8.6 mg/dL (8.8-10.5); CREATININE 2.63 mg/dL (0.60-1.30); TOTAL PROTEIN, SERUM 7.2 g/dL (6.4-8.2)
[2018-03-17] MEDS ORDERED: LABETALOL HCL 200 MG in DEXTROSE 5%-WATER 160 ML IV PRN (21:01)
[2018-03-17] MEDS ORDERED: ONDANSETRON HCL 4 MG/2 ML VIAL IVP PRN (21:15)
[2018-03-17] MEDS ORDERED: ONDANSETRON HCL 4 MG/2 ML VIAL IVP ONE (21:15)
[2018-03-17] MEDS ORDERED: LABETALOL HCL 5 MG/ML 20 ML VIAL IVP ONE (21:15)
[2018-03-17] MEDS ORDERED: 0.9% SODIUM CHLORIDE 10 ML SYRINGE IVP PRN (21:15)
[2018-03-17] MEDS ORDERED: ACETAMINOPHEN 325 MG TABLET PO PRN ×2 (21:15→21:30)
[2018-03-17] MEDS ORDERED: MORPHINE SULFATE 4 MG/ML SYRINGE IVP ONE (21:15)
[2018-03-17] MEDS ORDERED: ZOLPIDEM TARTRATE 5 MG TABLET PO PRN (21:30)
[2018-03-17] MEDS ORDERED: MAGNESIUM HYDROXIDE SUSPENSION 30 ML UDCUP PO PRN (21:30)
[2018-03-17] MEDS ORDERED: POTASSIUM CHLORIDE 20 MEQ ER TABLET PO ONE ×2 (21:30→21:45)
[2018-03-17] MEDS ORDERED: NITROPRUSSIDE SODIUM 50 MG in DEXTROSE 5%-WATER 248 ML IV PRN (21:30)
[2018-03-17] MEDS: LOSARTAN POTASSIUM 25 MG TABLET PO SCH (21:46)
[2018-03-17 21:56] LABS: AMPHET/METH SCREEN,URINE NEGATIVE (NEGATIVE); BARBITURATE SCREEN, URINE NEGATIVE (NEGATIVE); BENZODIAZEPINES SCREEN,URINE NEGATIVE (NEGATIVE); CANNABINOID SCREEN,URINE NEGATIVE (NEGATIVE); COCAINE SCREEN,URINE NEGATIVE (NEGATIVE); METHADONE SCREEN, URINE NEGATIVE (NEGATIVE); OPIATE SCREEN,URINE NEGATIVE (NEGATIVE)
[2018-03-17 21:58] LABS: PHENCYCLIDINE SCREEN,URINE NEGATIVE (NEGATIVE)
[2018-03-17 22:00] LABS: APPEARANCE,URINE CLEAR (CLEAR); BILIRUBIN,URINE NEGATIVE (NEGATIVE); GLUCOSE, URINE (UA) NEGATIVE (NEGATIVE); KETONES,URINE NEGATIVE (NEGATIVE); LEUKOCYTE ESTERASE ,URINE NEGATIVE (NEGATIVE); NITRATE,URINE NEGATIVE (NEGATIVE); OCCULT BLOOD,URINE MODERATE (NEGATIVE); PROTEIN,URINE SEE CONFIRM (NEGATIVE); UROBILINOGEN,URINE 0.2 mg/dL (<=1.0)
[2018-03-17 22:05] LABS: SULFOSALICYLIC ACID,URINE 4+ (Negative)
[2018-03-17 22:06] LABS: WBC,URINE 0-2 /HPF (0-5)
[2018-03-17 22:07] LABS: BACTERIA,URINE None Seen /HPF (None Seen); SQUAMOUS EPITHELIAL CELL,UR Few /LPF (None Seen)
[2018-03-17 22:35] VITALS: BP 149/97
[2018-03-17] MEDS: LABETALOL HCL 200 MG TABLET PO SCH (23:20)
[2018-03-18] VITALS (14 sets, daily range): BP systolic 126–181; BP diastolic 66–119
[2018-03-18] MEDS: MORPHINE SULFATE 2 MG/ML SYRINGE IVP PRN ×3 (03:10→20:49)
[2018-03-18 04:42] LABS: BASOPHILS % (AUTO) 0.8 % (0.0-2.0); EOSINOPHILS % (AUTO) 0.9 % (1.0-6.0); HEMATOCRIT 36.1 % (36-46); HEMOGLOBIN 11.9 g/dL (12.0-16.0); LYMPHOCYTES % (AUTO) 23.6 % (22.0-44.0); MEAN CORPUSCULAR HEMOGLOBIN 25.4 pg (26.0-34.0); MEAN CORPUSCULAR HGB CONC 32.9 G/dL (31.0-37.0); MEAN CORPUSCULAR VOLUME 77 fL (80-100); MONOCYTES # (AUTO) 0.6 K/uL (0.1-1.0); MONOCYTES % (AUTO) 7.3 % (2.0-9.0); NEUTROPHILS # (AUTO) 5.7 K/uL (1.8-7.7); NEUTROPHILS % (AUTO) 67.4 % (40.0-70.0); PLATELET COUNT (AUTO) 246 K/uL (150-450); RED BLOOD CELL COUNT(AUTO) 4.69 MIL/uL (4.00-5.20); RED CELL DISTRIBUTION WIDTH 15.4 % (11.5-14.5)
[2018-03-18 04:51] LABS: CALCIUM, TOTAL 8.1 mg/dL (8.8-10.5); CREATININE 2.36 mg/dL (0.60-1.30)
[2018-03-18] MEDS ORDERED: POTASSIUM CHLORIDE 20 MEQ ER TABLET PO ONE (05:30)
[2018-03-18] MEDS: LABETALOL HCL 200 MG TABLET PO SCH ×3 (08:37→23:54)
[2018-03-18] MEDS: DOCUSATE SODIUM 100 MG CAPSULE PO SCH ×2 (10:09→20:46)
[2018-03-18] MEDS: ASPIRIN 81 MG CHEWABLE TABLET PO SCH (10:09)
[2018-03-18] MEDS: PANTOPRAZOLE SODIUM 40 MG DR TABLET PO SCH (10:09)
[2018-03-18] MEDS: AmLODIPine BESYLATE 10 MG TABLET PO SCH (10:09)
[2018-03-18] MEDS: LOSARTAN POTASSIUM 25 MG TABLET PO SCH ×2 (10:09→20:46)
[2018-03-18] MEDS: HydrALAZINE HCL 25 MG TABLET PO SCH (20:46)
[2018-03-19 03:39] VITALS: BP 134/78
[2018-03-19 07:48] VITALS: BP 133/85
[2018-03-19] MEDS: AmLODIPine BESYLATE 10 MG TABLET PO SCH (07:58)
[2018-03-19] MEDS: PANTOPRAZOLE SODIUM 40 MG DR TABLET PO SCH (07:58)
[2018-03-19] MEDS: DOCUSATE SODIUM 100 MG CAPSULE PO SCH ×2 (07:59→20:02)
[2018-03-19] MEDS: HydrALAZINE HCL 25 MG TABLET PO SCH ×2 (07:59→20:02)
[2018-03-19] MEDS: LABETALOL HCL 200 MG TABLET PO SCH ×3 (07:59→23:46)
[2018-03-19] MEDS: LOSARTAN POTASSIUM 25 MG TABLET PO SCH ×2 (07:59→20:02)
[2018-03-19] MEDS: ASPIRIN 81 MG CHEWABLE TABLET PO SCH (07:59)
[2018-03-19] MEDS: OxyCODONE HCL/ACETAMINOPHEN 5-325 MG TABLET PO PRN ×2 (08:01→20:02)
[2018-03-19 11:37] VITALS: BP 116/63
[2018-03-19] MEDS: MORPHINE SULFATE 2 MG/ML SYRINGE IVP PRN (12:19)
[2018-03-19 16:54] VITALS: BP 139/77
[2018-03-19 19:52] VITALS: BP 137/80
[2018-03-19 23:53] VITALS: BP 142/77
[2018-03-20 03:41] VITALS: BP 123/67
[2018-03-20 07:42] VITALS: BP 149/80
[2018-03-20] MEDS: OxyCODONE HCL/ACETAMINOPHEN 5-325 MG TABLET PO PRN ×2 (08:10→20:08)
[2018-03-20] MEDS: HydrALAZINE HCL 25 MG TABLET PO SCH ×3 (08:12→20:08)
[2018-03-20] MEDS: LOSARTAN POTASSIUM 25 MG TABLET PO SCH ×2 (08:12→20:08)
[2018-03-20] MEDS: DOCUSATE SODIUM 100 MG CAPSULE PO SCH ×2 (08:12→20:08)
[2018-03-20] MEDS: ASPIRIN 81 MG CHEWABLE TABLET PO SCH (08:12)
[2018-03-20] MEDS: AmLODIPine BESYLATE 10 MG TABLET PO SCH (08:12)
[2018-03-20] MEDS: LABETALOL HCL 200 MG TABLET PO SCH ×2 (08:12→15:39)
[2018-03-20] MEDS: PANTOPRAZOLE SODIUM 40 MG DR TABLET PO SCH (08:12)
[2018-03-20] MEDS: MORPHINE SULFATE 2 MG/ML SYRINGE IVP PRN (10:20)
[2018-03-20 11:40] VITALS: BP 123/70
[2018-03-20 16:18] VITALS: BP 141/75
[2018-03-20 19:18] VITALS: BP 155/77
[2018-03-20 23:14] VITALS: BP 151/89
[2018-03-21] MEDS: LABETALOL HCL 200 MG TABLET PO SCH ×3 (00:11→15:41)
[2018-03-21 03:37] VITALS: BP 140/81
[2018-03-21 06:35] LABS: CALCIUM, TOTAL 8.2 mg/dL (8.8-10.5); CREATININE 2.63 mg/dL (0.60-1.30); POTASSIUM 3.2 mmol/L (3.5-5.1)
[2018-03-21 07:03] VITALS: BP 130/71
[2018-03-21] MEDS: OxyCODONE HCL/ACETAMINOPHEN 5-325 MG TABLET PO PRN (07:40)
[2018-03-21] MEDS: DOCUSATE SODIUM 100 MG CAPSULE PO SCH (09:00)
[2018-03-21] MEDS: ASPIRIN 81 MG CHEWABLE TABLET PO SCH (09:31)
[2018-03-21] MEDS: AmLODIPine BESYLATE 10 MG TABLET PO SCH (09:31)
[2018-03-21] MEDS: HydrALAZINE HCL 25 MG TABLET PO SCH ×2 (09:31→15:40)
[2018-03-21] MEDS: PANTOPRAZOLE SODIUM 40 MG DR TABLET PO SCH (09:31)
[2018-03-21] MEDS: LOSARTAN POTASSIUM 25 MG TABLET PO SCH (09:31)
[2018-03-21 09:32] VITALS: BP 132/76
[2018-03-21] MEDS ORDERED: POTASSIUM CHLORIDE 20 MEQ ER TABLET PO ONE (10:30)
[2018-03-21] MEDS ORDERED: HYDR-2924 PO (10:36)
[2018-03-21] MEDS ORDERED: LABE200T6 PO (10:37)
[2018-03-21 11:06] VITALS: BP 123/75
[2018-03-21 15:37] VITALS: BP 124/87
== END 2018-03-21 18:00 | disposition home or self-care (01) | DRG 199 ==
LOC: EMS 19:15 → ICU 21:45 → 5S 03-18 21:50
PROVIDERS: ADMIT Internal Medicine; ATTEND Internal Medicine
DX: I16.1 Hypertensive emergency (principal); N18.3 Chronic kidney disease, stage 3 (moderate); E66.01 Morbid (severe) obesity due to excess calories; I12.9 Hypertensive chronic kidney disease with stage 1 through stage 4 chronic kidney disease, or unspecified chronic kidney disease; Z68.41 Body mass index [BMI] 40.0-44.9, adult; D64.9 Anemia, unspecified; E87.6 Hypokalemia; F41.1 Generalized anxiety disorder; N83.209 Unspecified ovarian cyst, unspecified side; G43.909 Migraine, unspecified, not intractable, without status migrainosus; K21.9 Gastro-esophageal reflux disease without esophagitis; Z82.49 Family history of ischemic heart disease and other diseases of the circulatory system; Z85.05 Personal history of malignant neoplasm of liver; Z86.73 Personal history of transient ischemic attack (TIA), and cerebral infarction without residual deficits; Z91.19 Patient's noncompliance with other medical treatment and regimen; Z91.012 Allergy to eggs; Z88.6 Allergy status to analgesic agent; Z88.8 Allergy status to other drugs, medicaments and biological substances; Z91.013 Allergy to seafood; Z79.82 Long term (current) use of aspirin; Z79.1 Long term (current) use of non-steroidal anti-inflammatories (NSAID); Z79.899 Other long term (current) drug therapy; Z87.440 Personal history of urinary (tract) infections
CPT/HCPCS: 76700; 84132; 87081; 93005; 96374; 96375; 99291; J2270; J2405; J3490; J7060

== ENCOUNTER 2018-04-07 17:46 | Emergency (ER) | payer OTHER ==
[~2018-04-07] VITALS: Ht 167.6 cm; Wt 119.1 kg
[~2018-04-07 17:46] MED LIST changes: +HYDR-2924 PO; +LABE200T6 PO; -LOSA100T20 PO
[2018-04-07 19:22] LABS: BASOPHILS % (AUTO) 0.4 % (0.0-2.0); EOSINOPHILS % (AUTO) 1.8 % (1.0-6.0); HEMATOCRIT 35.5 % (36-46); HEMOGLOBIN 11.9 g/dL (12.0-16.0); LYMPHOCYTES # (AUTO) 2.3 K/uL (1.0-4.8); LYMPHOCYTES % (AUTO) 24.7 % (22.0-44.0); MEAN CORPUSCULAR HEMOGLOBIN 25.4 pg (26.0-34.0); MEAN CORPUSCULAR HGB CONC 33.5 G/dL (31.0-37.0); MEAN CORPUSCULAR VOLUME 76 fL (80-100); MONOCYTES # (AUTO) 0.7 K/uL (0.1-1.0); MONOCYTES % (AUTO) 7.6 % (2.0-9.0); NEUTROPHILS # (AUTO) 6.1 K/uL (1.8-7.7); NEUTROPHILS % (AUTO) 65.5 % (40.0-70.0); PLATELET COUNT (AUTO) 277 K/uL (150-450); RED BLOOD CELL COUNT(AUTO) 4.68 MIL/uL (4.00-5.20); RED CELL DISTRIBUTION WIDTH 16.7 % (11.5-14.5)
[2018-04-07 19:43] LABS: ANION GAP 8 mmol/L (8-16); CALCIUM, TOTAL 8.4 mg/dL (8.8-10.5); CARBON DIOXIDE 29 mmol/L (22-29); CHLORIDE 105 mmol/L (98-107); CREATININE 3.52 mg/dL (0.60-1.30); GLOMERULAR FILTR. RATE CALC 16 mL/min (>60); GLUCOSE,RANDOM 98 mg/dL (70-110); POTASSIUM 3.7 mmol/L (3.5-5.1); SODIUM SERUM 142 mmol/L (136-145); UREA NITROGEN, BLOOD 35 mg/dL (7-18)
[2018-04-07 19:55] LABS: APPEARANCE,URINE CLEAR (CLEAR); BILIRUBIN,URINE NEGATIVE (NEGATIVE); GLUCOSE, URINE (UA) NEGATIVE (NEGATIVE); KETONES,URINE NEGATIVE (NEGATIVE); LEUKOCYTE ESTERASE ,URINE NEGATIVE (NEGATIVE); NITRATE,URINE NEGATIVE (NEGATIVE); OCCULT BLOOD,URINE NEGATIVE (NEGATIVE); PH,URINE 5.5 (5.0-8.0); PROTEIN,URINE SEE CONFIRM (NEGATIVE); UROBILINOGEN,URINE 0.2 mg/dL (<=1.0)
[2018-04-07 19:55] LABS: ALANINE AMINOTRANSFERASE 26 U/L (12-78); ALBUMIN 2.9 g/dL (3.4-5.0); ALKALINE PHOSPHATASE 97 U/L (46-116); ASPARTATE AMINOTRANSFERASE 20 U/L (15-37); BILIRUBIN,TOTAL 0.2 mg/dL (0.1-1.0); HCG,QUANTITATIVE < 1 mIU/mL (0-6); LIPASE 234 U/L (73-393); TOTAL PROTEIN, SERUM 6.8 g/dL (6.4-8.2)
[2018-04-07 20:03] LABS: AMPHET/METH SCREEN,URINE NEGATIVE (NEGATIVE); BARBITURATE SCREEN, URINE POSITIVE (NEGATIVE); BENZODIAZEPINES SCREEN,URINE NEGATIVE (NEGATIVE); CANNABINOID SCREEN,URINE NEGATIVE (NEGATIVE); COCAINE SCREEN,URINE NEGATIVE (NEGATIVE); METHADONE SCREEN, URINE NEGATIVE (NEGATIVE); OPIATE SCREEN,URINE NEGATIVE (NEGATIVE)
[2018-04-07 20:04] LABS: PHENCYCLIDINE SCREEN,URINE NEGATIVE (NEGATIVE)
[2018-04-07 20:25] LABS: SULFOSALICYLIC ACID,URINE 4+ (Negative)
[2018-04-07 20:27] LABS: RBC,URINE 0-2 /HPF (0-2)
[2018-04-07 20:28] LABS: BACTERIA,URINE Few /HPF (None Seen); SQUAMOUS EPITHELIAL CELL,UR Few /LPF (None Seen)
[2018-04-07] MEDS ORDERED: HYDROCODONE/ACETAMINOPHEN 5-325 MG TABLET PO ONE (21:00)
[2018-04-07] MEDS ORDERED: SODIUM CHLORIDE 0.9% 1,000 ML IV ONE (21:00)
[2018-04-07] MEDS ORDERED: BISMUTH SUBSALICYLATE 524 MG/30 ML SUSPENSION UDCUP PO ONE (21:00)
[2018-04-07] MEDS ORDERED: HALOPERIDOL LACTATE 5 MG/ML VIAL IVP ONE (23:30)
[2018-04-07 23:48] VITALS: BP 138/95
== END 2018-04-08 | disposition home or self-care (01) ==
LOC: EMS 17:48
DX: I12.9 Hypertensive chronic kidney disease with stage 1 through stage 4 chronic kidney disease, or unspecified chronic kidney disease (principal); N18.3 Chronic kidney disease, stage 3 (moderate); G89.29 Other chronic pain; F32.9 Major depressive disorder, single episode, unspecified; K21.9 Gastro-esophageal reflux disease without esophagitis; G43.909 Migraine, unspecified, not intractable, without status migrainosus; Z86.73 Personal history of transient ischemic attack (TIA), and cerebral infarction without residual deficits; Z88.5 Allergy status to narcotic agent; Z88.8 Allergy status to other drugs, medicaments and biological substances; Z91.012 Allergy to eggs; Z79.82 Long term (current) use of aspirin
CPT/HCPCS: 36415; 74176; 80053; 80307; 81001; 83690; 84702; 85025; 96374; 99285; J1630; J7030

== ENCOUNTER 2018-04-11 17:34 | Emergency (ER) | payer OTHER ==
[~2018-04-11] VITALS: Ht 167.6 cm; Wt 119.1 kg
[2018-04-11] MEDS ORDERED: NIFE10 PO (18:03)
[2018-04-11] MEDS ORDERED: HYDR25TA PO (18:03)
[2018-04-11] MEDS ORDERED: LOSA25TA16 PO (18:03)
[2018-04-11] MEDS ORDERED: ATEN25TA PO (18:03)
[2018-04-11 19:14] LABS: BASOPHILS % (AUTO) 0.4 % (0.0-2.0); HEMATOCRIT 36.1 % (36-46); HEMOGLOBIN 11.9 g/dL (12.0-16.0); LYMPHOCYTES # (AUTO) 2.1 K/uL (1.0-4.8); LYMPHOCYTES % (AUTO) 22.7 % (22.0-44.0); MEAN CORPUSCULAR HEMOGLOBIN 25.4 pg (26.0-34.0); MEAN CORPUSCULAR VOLUME 77 fL (80-100); MONOCYTES # (AUTO) 0.7 K/uL (0.1-1.0); MONOCYTES % (AUTO) 8.2 % (2.0-9.0); NEUTROPHILS # (AUTO) 6.1 K/uL (1.8-7.7); NEUTROPHILS % (AUTO) 66.7 % (40.0-70.0); PLATELET COUNT (AUTO) 281 K/uL (150-450); RED CELL DISTRIBUTION WIDTH 16.6 % (11.5-14.5)
[2018-04-11 19:24] LABS: CALCIUM, TOTAL 8.2 mg/dL (8.8-10.5); CREATININE 2.86 mg/dL (0.60-1.30); POTASSIUM 3.5 mmol/L (3.5-5.1)
[2018-04-11 19:30] LABS: ALBUMIN 2.8 g/dL (3.4-5.0); BILIRUBIN,TOTAL 0.2 mg/dL (0.1-1.0); TOTAL PROTEIN, SERUM 6.9 g/dL (6.4-8.2)
[2018-04-11] MEDS ORDERED: TRAZ-219 PO (19:59)
[2018-04-11] MEDS ORDERED: NIFE30TA5 PO (19:59)
[2018-04-11] MEDS ORDERED: LOSA50TA25 PO (19:59)
[2018-04-11] MEDS ORDERED: MORPHINE SULFATE 4 MG/ML SYRINGE IVP ONE (20:00)
[2018-04-11] MEDS ORDERED: ONDANSETRON HCL 4 MG/2 ML VIAL IVP ONE (20:00)
[2018-04-11 22:42] VITALS: BP 160/100
== END 2018-04-11 23:41 | disposition home or self-care (01) ==
LOC: EMS 17:35
DX: I13.10 Hypertensive heart and chronic kidney disease without heart failure, with stage 1 through stage 4 chronic kidney disease, or unspecified chronic kidney disease (principal); N18.3 Chronic kidney disease, stage 3 (moderate); R10.9 Unspecified abdominal pain; R60.0 Localized edema; D64.9 Anemia, unspecified; F32.9 Major depressive disorder, single episode, unspecified; G43.909 Migraine, unspecified, not intractable, without status migrainosus; Z88.6 Allergy status to analgesic agent; Z91.012 Allergy to eggs; Z91.013 Allergy to seafood; Z79.82 Long term (current) use of aspirin; Z79.899 Other long term (current) drug therapy
CPT/HCPCS: 36415; 74176; 80053; 81002; 83690; 84702; 85025; 93971; 96374; 96375; 99285; J2270; J2405

== ENCOUNTER 2018-05-05 19:29 | Inpatient (IN) | payer OTHER ==
[~2018-05-05] VITALS: Ht 167.6 cm; Wt 119.0 kg
[~2018-05-05 19:29] MED LIST changes: -AMLO-512 PO; +ATEN25TA PO; -CITA-106 PO; -FAMO20 PO; -HYDR-2924 PO; +HYDR25TA PO; -LABE200T6 PO; +LOSA50TA25 PO; +NIFE30TA5 PO; -TOPI25 PO; +TRAZ-219 PO; -TRAZ-220 PO
[2018-05-05 21:05] LABS: BASOPHILS % (AUTO) 0.6 % (0.0-2.0); EOSINOPHILS % (AUTO) 1.9 % (1.0-6.0); HEMATOCRIT 38.7 % (36-46); HEMOGLOBIN 12.9 g/dL (12.0-16.0); LYMPHOCYTES # (AUTO) 2.5 K/uL (1.0-4.8); LYMPHOCYTES % (AUTO) 25.8 % (22.0-44.0); MEAN CORPUSCULAR HEMOGLOBIN 25.4 pg (26.0-34.0); MEAN CORPUSCULAR HGB CONC 33.4 G/dL (31.0-37.0); MEAN CORPUSCULAR VOLUME 76 fL (80-100); MONOCYTES # (AUTO) 0.8 K/uL (0.1-1.0); MONOCYTES % (AUTO) 7.8 % (2.0-9.0); NEUTROPHILS # (AUTO) 6.2 K/uL (1.8-7.7); NEUTROPHILS % (AUTO) 63.9 % (40.0-70.0); PLATELET COUNT (AUTO) 226 K/uL (150-450); RED BLOOD CELL COUNT(AUTO) 5.09 MIL/uL (4.00-5.20); RED CELL DISTRIBUTION WIDTH 16.1 % (11.5-14.5)
[2018-05-05] MEDS ORDERED: DiphenhydrAMINE HCL 50 MG/ML VIAL IVP ONE (21:15)
[2018-05-05] MEDS ORDERED: HydrALAZINE HCL 20 MG/ML VIAL IVP ONE (21:15)
[2018-05-05] MEDS ORDERED: HALOPERIDOL LACTATE 5 MG/ML VIAL IVP ONE (21:15)
[2018-05-05 21:18] LABS: ALANINE AMINOTRANSFERASE 28 U/L (12-78); ALBUMIN 2.5 g/dL (3.4-5.0); ALKALINE PHOSPHATASE 108 U/L (46-116); AMYLASE 57 U/L (25-115); ANION GAP 9 mmol/L (8-16); ASPARTATE AMINOTRANSFERASE 25 U/L (15-37); BILIRUBIN,TOTAL 0.2 mg/dL (0.1-1.0); CALCIUM, TOTAL 7.7 mg/dL (8.8-10.5); CARBON DIOXIDE 28 mmol/L (22-29); CHLORIDE 104 mmol/L (98-107); CREATININE 3.41 mg/dL (0.60-1.30); GLOMERULAR FILTR. RATE CALC 16 mL/min (>60); GLUCOSE,RANDOM 104 mg/dL (70-110); HCG,QUANTITATIVE < 1 mIU/mL (0-6); LIPASE 210 U/L (73-393); SODIUM SERUM 141 mmol/L (136-145); TOTAL PROTEIN, SERUM 6.8 g/dL (6.4-8.2); UREA NITROGEN, BLOOD 25 mg/dL (7-18)
[2018-05-05 21:19] LABS: APPEARANCE,URINE CLOUDY (CLEAR); BILIRUBIN,URINE NEGATIVE (NEGATIVE); GLUCOSE, URINE (UA) NEGATIVE (NEGATIVE); KETONES,URINE NEGATIVE (NEGATIVE); LEUKOCYTE ESTERASE ,URINE NEGATIVE (NEGATIVE); NITRATE,URINE NEGATIVE (NEGATIVE); OCCULT BLOOD,URINE SMALL (NEGATIVE); PROTEIN,URINE SEE CONFIRM (NEGATIVE); UROBILINOGEN,URINE 0.2 mg/dL (<=1.0)
[2018-05-05 21:20] LABS: POTASSIUM 2.6 mmol/L (3.5-5.1)
[2018-05-05 21:31] LABS: SULFOSALICYLIC ACID,URINE 4+ (Negative)
[2018-05-05 21:33] LABS: RBC,URINE 0-2 /HPF (0-2)
[2018-05-05 21:34] LABS: BACTERIA,URINE Few /HPF (None Seen); SQUAMOUS EPITHELIAL CELL,UR Many /LPF (None Seen)
[2018-05-05] MEDS ORDERED: POTASSIUM CHLORIDE 10% 40 MEQ/30 ML LIQUID UDCUP PO ONE (21:45)
[2018-05-05 21:57] LABS: AMPHET/METH SCREEN,URINE NEGATIVE (NEGATIVE); BARBITURATE SCREEN, URINE NEGATIVE (NEGATIVE); BENZODIAZEPINES SCREEN,URINE NEGATIVE (NEGATIVE); CANNABINOID SCREEN,URINE NEGATIVE (NEGATIVE); COCAINE SCREEN,URINE NEGATIVE (NEGATIVE); METHADONE SCREEN, URINE NEGATIVE (NEGATIVE); OPIATE SCREEN,URINE NEGATIVE (NEGATIVE); PHENCYCLIDINE SCREEN,URINE NEGATIVE (NEGATIVE)
[2018-05-05] MEDS ORDERED: SODIUM CHLORIDE 0.9% 1,000 ML IV ONE (22:00)
[2018-05-05] MEDS ORDERED: METOPROLOL TARTRATE 5 MG/5 ML VIAL IVP ONE (22:30)
[2018-05-05] MEDS ORDERED: MAGNESIUM CHLORIDE 64 MG ER TABLET PO ONE (23:30)
[2018-05-05] MEDS ORDERED: POTASSIUM CHLORIDE 20 MEQ ER TABLET PO ONE (23:30)
[2018-05-06] VITALS (12 sets, daily range): BP systolic 102–214; BP diastolic 52–147
[2018-05-06] MEDS ORDERED: HydrALAZINE HCL 20 MG/ML VIAL IVP ONE (01:15)
[2018-05-06] MEDS ORDERED: ONDANSETRON HCL 4 MG/2 ML VIAL IVP PRN (01:30)
[2018-05-06] MEDS ORDERED: 0.9% SODIUM CHLORIDE 10 ML SYRINGE IVP PRN ×2 (01:30→04:00)
[2018-05-06] MEDS ORDERED: ACETAMINOPHEN 325 MG TABLET PO PRN ×2 (01:30→04:00)
[2018-05-06] MEDS ORDERED: HydrALAZINE HCL 20 MG/ML VIAL IVP PRN (01:30)
[2018-05-06] MEDS ORDERED: OxyCODONE HCL/ACETAMINOPHEN 5-325 MG TABLET PO PRN (04:00)
[2018-05-06] MEDS ORDERED: MAGNESIUM HYDROXIDE SUSPENSION 30 ML UDCUP PO PRN (04:00)
[2018-05-06] MEDS: HydrALAZINE HCL 20 MG/ML VIAL IVP PRN ×2 (04:19→08:31)
[2018-05-06] MEDS: MORPHINE SULFATE 4 MG/ML SYRINGE IVP PRN ×3 (04:20→19:46)
[2018-05-06] MEDS: ONDANSETRON HCL 4 MG/2 ML VIAL IVP PRN ×2 (08:08→19:46)
[2018-05-06] MEDS: PANTOPRAZOLE SODIUM 40 MG/VIAL IVP SCH (08:10)
[2018-05-06] MEDS ORDERED: NIFEdipine 30 MG ER TABLET PO SCH (09:00)
[2018-05-06] MEDS ORDERED: LOSARTAN POTASSIUM 50 MG TABLET PO SCH (09:00)
[2018-05-06] MEDS ORDERED: HYDR-2924 PO (09:11)
[2018-05-06] MEDS ORDERED: CARV6 PO (09:11)
[2018-05-06] MEDS ORDERED: CARVEDILOL 6.25 MG TABLET PO SCH (09:30)
[2018-05-06] MEDS: ASPIRIN 81 MG CHEWABLE TABLET PO SCH (10:19)
[2018-05-06] MEDS: TraZODone HCL 50 MG TABLET PO SCH ×2 (10:19→22:17)
[2018-05-06] MEDS: DOCUSATE SODIUM 100 MG CAPSULE PO SCH ×2 (10:19→21:48)
[2018-05-06 10:58] LABS: POTASSIUM 2.7 mmol/L (3.5-5.1)
[2018-05-06] MEDS ORDERED: POTASSIUM CHLORIDE 10 MEQ ER TABLET PO ONE (12:15)
[2018-05-06 13:02] LABS: THYROID STIMULATING HORMONE 3.75 uIU/mL (0.36-3.74)
[2018-05-06] MEDS: HydrALAZINE HCL 50 MG TABLET PO SCH ×2 (16:52→21:48)
[2018-05-07] VITALS (9 sets, daily range): BP systolic 105–162; BP diastolic 55–86
[2018-05-07] MEDS: ASPIRIN 81 MG CHEWABLE TABLET PO SCH (08:16)
[2018-05-07] MEDS: DOCUSATE SODIUM 100 MG CAPSULE PO SCH ×2 (08:16→20:14)
[2018-05-07] MEDS: HydrALAZINE HCL 50 MG TABLET PO SCH ×3 (08:16→20:14)
[2018-05-07] MEDS: TraZODone HCL 50 MG TABLET PO SCH ×2 (08:20→21:27)
[2018-05-07] MEDS: PANTOPRAZOLE SODIUM 40 MG/VIAL IVP SCH (08:21)
[2018-05-07] MEDS ORDERED: NIFEdipine 60 MG ER TABLET PO SCH (09:00)
[2018-05-07 09:38] LABS: BASOPHILS % (AUTO) 0.6 % (0.0-2.0); EOSINOPHILS % (AUTO) 1.6 % (1.0-6.0); HEMATOCRIT 39.2 % (36-46); HEMOGLOBIN 13.2 g/dL (12.0-16.0); LYMPHOCYTES # (AUTO) 1.4 K/uL (1.0-4.8); LYMPHOCYTES % (AUTO) 17.9 % (22.0-44.0); MEAN CORPUSCULAR HEMOGLOBIN 26.1 pg (26.0-34.0); MEAN CORPUSCULAR HGB CONC 33.7 G/dL (31.0-37.0); MEAN CORPUSCULAR VOLUME 78 fL (80-100); MONOCYTES # (AUTO) 0.4 K/uL (0.1-1.0); MONOCYTES % (AUTO) 5.9 % (2.0-9.0); NEUTROPHILS # (AUTO) 5.7 K/uL (1.8-7.7); PLATELET COUNT (AUTO) 237 K/uL (150-450); RED BLOOD CELL COUNT(AUTO) 5.06 MIL/uL (4.00-5.20); RED CELL DISTRIBUTION WIDTH 16.9 % (11.5-14.5)
[2018-05-07 09:44] LABS: CALCIUM, TOTAL 7.8 mg/dL (8.8-10.5); CREATININE 4.22 mg/dL (0.60-1.30)
[2018-05-07 10:23] LABS: POTASSIUM 2.8 mmol/L (3.5-5.1)
[2018-05-07] MEDS ORDERED: POTASSIUM CHLORIDE 20 MEQ ER TABLET PO ONE (12:15)
[2018-05-07] MEDS: MORPHINE SULFATE 4 MG/ML SYRINGE IVP PRN (15:35)
[2018-05-07 18:52] LABS: CREATININE,URINE RANDOM 263.8 mg/dL (30.0-125.0)
[2018-05-07] MEDS: ONDANSETRON HCL 4 MG/2 ML VIAL IVP PRN (20:14)
[2018-05-07] MEDS: HydrALAZINE HCL 20 MG/ML VIAL IVP PRN (23:50)
[2018-05-08] VITALS (8 sets, daily range): BP systolic 116–164; BP diastolic 67–98
[2018-05-08 07:19] LABS: POTASSIUM 2.8 mmol/L (3.5-5.1)
[2018-05-08] MEDS ORDERED: POTASSIUM CHLORIDE 20 MEQ ER TABLET PO ONE (07:30)
[2018-05-08] MEDS: HydrALAZINE HCL 50 MG TABLET PO SCH ×3 (08:01→21:00)
[2018-05-08] MEDS: DOCUSATE SODIUM 100 MG CAPSULE PO SCH ×2 (08:01→21:16)
[2018-05-08] MEDS: ASPIRIN 81 MG CHEWABLE TABLET PO SCH (08:01)
[2018-05-08] MEDS: POTASSIUM CHL 10 MEQ/WATER 50 ML IV SCH ×5 (08:02→10:30)
[2018-05-08] MEDS: PANTOPRAZOLE SODIUM 40 MG/VIAL IVP SCH (08:02)
[2018-05-08] MEDS: TraZODone HCL 50 MG TABLET PO SCH ×2 (08:17→21:16)
[2018-05-08] MEDS: ONDANSETRON HCL 4 MG/2 ML VIAL IVP PRN ×2 (08:18→18:48)
[2018-05-08] MEDS: MORPHINE SULFATE 4 MG/ML SYRINGE IVP PRN (08:19)
[2018-05-08] MEDS ORDERED: SODIUM CHLORIDE 0.9% 500 ML IV ONE (08:26)
[2018-05-08 08:32] LABS: CREATININE 4.29 mg/dL (0.60-1.30)
[2018-05-08 08:33] LABS: CALCIUM, TOTAL 7.6 mg/dL (8.8-10.5)
[2018-05-08 08:36] LABS: MAGNESIUM 2.3 mg/dL (1.80-2.40)
[2018-05-08 08:37] LABS: BASOPHILS % (AUTO) 0.4 % (0.0-2.0); EOSINOPHILS % (AUTO) 1.6 % (1.0-6.0); HEMATOCRIT 35.3 % (36-46); HEMOGLOBIN 12.1 g/dL (12.0-16.0); LYMPHOCYTES # (AUTO) 1.3 K/uL (1.0-4.8); LYMPHOCYTES % (AUTO) 17.3 % (22.0-44.0); MEAN CORPUSCULAR HEMOGLOBIN 26.1 pg (26.0-34.0); MEAN CORPUSCULAR HGB CONC 34.2 G/dL (31.0-37.0); MEAN CORPUSCULAR VOLUME 76 fL (80-100); MONOCYTES # (AUTO) 0.5 K/uL (0.1-1.0); MONOCYTES % (AUTO) 6.4 % (2.0-9.0); NEUTROPHILS # (AUTO) 5.6 K/uL (1.8-7.7); NEUTROPHILS % (AUTO) 74.3 % (40.0-70.0); PLATELET COUNT (AUTO) 214 K/uL (150-450); RED BLOOD CELL COUNT(AUTO) 4.62 MIL/uL (4.00-5.20); RED CELL DISTRIBUTION WIDTH 16.6 % (11.5-14.5)
[2018-05-08] MEDS ORDERED: NIFEdipine 30 MG ER TABLET PO SCH (09:00)
[2018-05-08] MEDS ORDERED: LOSARTAN POTASSIUM 50 MG TABLET PO SCH (09:00)
[2018-05-08] MEDS: HydrALAZINE HCL 20 MG/ML VIAL IVP PRN (11:46)
[2018-05-09 03:59] VITALS: BP 134/77
[2018-05-09] MEDS: OxyCODONE HCL/ACETAMINOPHEN 5-325 MG TABLET PO PRN ×2 (04:21→19:41)
[2018-05-09 07:15] LABS: CALCIUM, TOTAL 7.9 mg/dL (8.8-10.5); CREATININE 4.22 mg/dL (0.60-1.30)
[2018-05-09 07:45] VITALS: BP 161/91
[2018-05-09 08:06] LABS: POTASSIUM 2.9 mmol/L (3.5-5.1)
[2018-05-09] MEDS: PANTOPRAZOLE SODIUM 40 MG/VIAL IVP SCH (09:32)
[2018-05-09] MEDS: DOCUSATE SODIUM 100 MG CAPSULE PO SCH ×2 (09:32→19:42)
[2018-05-09] MEDS: NIFEdipine 60 MG ER TABLET PO SCH (09:33)
[2018-05-09] MEDS: HydrALAZINE HCL 50 MG TABLET PO SCH ×3 (09:33→19:42)
[2018-05-09] MEDS: ASPIRIN 81 MG CHEWABLE TABLET PO SCH (09:33)
[2018-05-09] MEDS: TraZODone HCL 50 MG TABLET PO SCH ×2 (09:33→19:42)
[2018-05-09] MEDS ORDERED: POTASSIUM CHLORIDE 20 MEQ ER TABLET PO ONE (10:15)
[2018-05-09] MEDS: ONDANSETRON HCL 4 MG/2 ML VIAL IVP PRN ×2 (11:24→19:42)
[2018-05-09 11:51] VITALS: BP 149/77
[2018-05-09 16:03] VITALS: BP 151/99
[2018-05-09 19:28] VITALS: BP 150/96
[2018-05-09] MEDS: HydrALAZINE HCL 20 MG/ML VIAL IVP PRN (23:45)
[2018-05-09 23:49] VITALS: BP 163/105
[2018-05-10 04:21] VITALS: BP 163/95
[2018-05-10] MEDS: HydrALAZINE HCL 20 MG/ML VIAL IVP PRN (04:24)
[2018-05-10 05:30] LABS: BAND NEUTROPHILS % (MANUAL) 0 % (0-5)
[2018-05-10 05:36] LABS: HEMATOCRIT 35.5 % (36-46); MEAN CORPUSCULAR HEMOGLOBIN 26.3 pg (26.0-34.0); MEAN CORPUSCULAR HGB CONC 33.8 G/dL (31.0-37.0); MEAN CORPUSCULAR VOLUME 78 fL (80-100); PLATELET COUNT (AUTO) 231 K/uL (150-450); RED BLOOD CELL COUNT(AUTO) 4.57 MIL/uL (4.00-5.20); RED CELL DISTRIBUTION WIDTH 17.2 % (11.5-14.5)
[2018-05-10 05:49] LABS: CALCIUM, TOTAL 8.1 mg/dL (8.8-10.5); CREATININE 4.11 mg/dL (0.60-1.30); POTASSIUM 3.5 mmol/L (3.5-5.1)
[2018-05-10 06:09] LABS: BASOPHILS % (MANUAL) 1 % (0-2); EOSINOPHILS % (MANUAL) 3 % (1-6); LYMPHOCYTES % (MANUAL) 23 % (22-44); MONOCYTES % (MANUAL) 5 % (2-9); SEGMENTED NEUTROPHILS % 68 % (40-70)
[2018-05-10 07:12] VITALS: BP 122/84
[2018-05-10] MEDS: DOCUSATE SODIUM 100 MG CAPSULE PO SCH (08:10)
[2018-05-10] MEDS: HydrALAZINE HCL 50 MG TABLET PO SCH (08:10)
[2018-05-10] MEDS: PANTOPRAZOLE SODIUM 40 MG/VIAL IVP SCH (08:11)
[2018-05-10] MEDS: ASPIRIN 81 MG CHEWABLE TABLET PO SCH (08:11)
[2018-05-10] MEDS: TraZODone HCL 50 MG TABLET PO SCH (08:11)
[2018-05-10] MEDS: NIFEdipine 60 MG ER TABLET PO SCH (08:11)
[2018-05-10 12:41] VITALS: BP 149/93
[2018-05-10] MEDS ORDERED: NIFE60TA81 PO (14:12)
== END 2018-05-10 16:00 | disposition home or self-care (01) | DRG 199 ==
LOC: EMS 19:35 → 5N 05-06 01:37
PROVIDERS: ADMIT Internal Medicine; ATTEND Internal Medicine
DX: I16.0 Hypertensive urgency (principal); N17.0 Acute kidney failure with tubular necrosis; E43 Unspecified severe protein-calorie malnutrition; I12.9 Hypertensive chronic kidney disease with stage 1 through stage 4 chronic kidney disease, or unspecified chronic kidney disease; E87.6 Hypokalemia; N18.3 Chronic kidney disease, stage 3 (moderate); K21.9 Gastro-esophageal reflux disease without esophagitis; K76.9 Liver disease, unspecified; G43.909 Migraine, unspecified, not intractable, without status migrainosus; F32.9 Major depressive disorder, single episode, unspecified; D64.9 Anemia, unspecified; Z87.440 Personal history of urinary (tract) infections; Z85.05 Personal history of malignant neoplasm of liver; Z85.43 Personal history of malignant neoplasm of ovary; Z86.73 Personal history of transient ischemic attack (TIA), and cerebral infarction without residual deficits; Z88.8 Allergy status to other drugs, medicaments and biological substances; Z90.49 Acquired absence of other specified parts of digestive tract; Z68.41 Body mass index [BMI] 40.0-44.9, adult
CPT/HCPCS: 74176; 82043; 82088; 82570; 83150; 83735; 84132; 84156; 84244; 84443; 84585; 85007; 93005; 96374; 96375; C9113; G0378; J0360; J1200; J1630; J2270; J2405; J3480; J3490; J7040

== ENCOUNTER 2018-07-10 18:03 | Inpatient (IN) | payer OTHER ==
[~2018-07-10] VITALS: Ht 167.6 cm; Wt 116.9 kg
[~2018-07-10 18:03] MED LIST changes: +AMLO-512 PO; +ASPI81 PO; -ASPI81TA87 PO; -ATEN25TA PO; +CARV25 PO; +CETI-170 PO; +CITA10TA68 PO; +FAMO20 PO; +HYDR-4174 PO; -HYDR25TA PO; -LOSA50TA25 PO; -NIFE30TA5 PO; +ONDA4TAB4 PO; +QUET25TA PO; +SIMV-260 PO; +SPIR50 PO; +SUMA25TA9 PO; +TOPI25 PO; -TRAZ-219 PO
[2018-07-10 19:13] LABS: BASOPHILS % (AUTO) 0.5 % (0.0-2.0); EOSINOPHILS % (AUTO) 1.7 % (1.0-6.0); HEMATOCRIT 36.1 % (36-46); HEMOGLOBIN 12.3 g/dL (12.0-16.0); LYMPHOCYTES # (AUTO) 1.7 K/uL (1.0-4.8); LYMPHOCYTES % (AUTO) 15.5 % (22.0-44.0); MEAN CORPUSCULAR HEMOGLOBIN 27.2 pg (26.0-34.0); MEAN CORPUSCULAR HGB CONC 34.1 G/dL (31.0-37.0); MEAN CORPUSCULAR VOLUME 80 fL (80-100); MONOCYTES # (AUTO) 0.7 K/uL (0.1-1.0); MONOCYTES % (AUTO) 6.1 % (2.0-9.0); NEUTROPHILS # (AUTO) 8.3 K/uL (1.8-7.7); NEUTROPHILS % (AUTO) 76.2 % (40.0-70.0); PLATELET COUNT (AUTO) 184 K/uL (150-450); RED BLOOD CELL COUNT(AUTO) 4.54 MIL/uL (4.00-5.20); RED CELL DISTRIBUTION WIDTH 16.2 % (11.5-14.5)
[2018-07-10 19:28] LABS: ANION GAP 12 mmol/L (8-16); CALCIUM, TOTAL 8.4 mg/dL (8.8-10.5); CARBON DIOXIDE 23 mmol/L (22-29); CHLORIDE 102 mmol/L (98-107); CREATININE 4.65 mg/dL (0.60-1.30); GLOMERULAR FILTR. RATE CALC 11 mL/min (>60); GLUCOSE,RANDOM 82 mg/dL (70-110); POTASSIUM 3.2 mmol/L (3.5-5.1); SODIUM SERUM 137 mmol/L (136-145); UREA NITROGEN, BLOOD 39 mg/dL (7-18)
[2018-07-10 19:33] LABS: ALANINE AMINOTRANSFERASE 22 U/L (12-78); ALBUMIN 3.1 g/dL (3.4-5.0); ALKALINE PHOSPHATASE 73 U/L (46-116); ASPARTATE AMINOTRANSFERASE 23 U/L (15-37); BILIRUBIN,TOTAL 0.3 mg/dL (0.1-1.0); HCG,QUANTITATIVE < 1 mIU/mL (0-6); LIPASE 180 U/L (73-393); TOTAL PROTEIN, SERUM 7.4 g/dL (6.4-8.2)
[2018-07-10] MEDS ORDERED: MORPHINE SULFATE 4 MG/ML SYRINGE IVP ONE (21:30)
[2018-07-10] MEDS ORDERED: ONDANSETRON HCL 4 MG/2 ML VIAL IVP ONE (21:30)
[2018-07-10] MEDS ORDERED: HydrALAZINE HCL 20 MG/ML VIAL IVP ONE (21:30)
[2018-07-10] MEDS ORDERED: LABETALOL HCL 5 MG/ML 20 ML VIAL IVP ONE (22:45)
[2018-07-10] MEDS ORDERED: METOCLOPRAMIDE HCL 5 MG/ML 2 ML VIAL IVP ONE (22:45)
[2018-07-10] MEDS ORDERED: 0.9% SODIUM CHLORIDE 10 ML SYRINGE IVP PRN (23:00)
[2018-07-10] MEDS ORDERED: ONDANSETRON HCL 4 MG/2 ML VIAL IVP PRN (23:00)
[2018-07-10] MEDS ORDERED: ACETAMINOPHEN 325 MG TABLET PO PRN (23:00)
[2018-07-10] MEDS ORDERED: NICARDipine 20 MG/DEXT,ISO-OSM 200 ML IV PRN (23:14)
[2018-07-11] MEDS ORDERED: 0.9% SODIUM CHLORIDE 10 ML SYRINGE IVP PRN
[2018-07-11] MEDS ORDERED: ZOLPIDEM TARTRATE 5 MG TABLET PO PRN
[2018-07-11] MEDS ORDERED: ONDANSETRON HCL 4 MG/2 ML VIAL IVP PRN
[2018-07-11] MEDS: CARVEDILOL 25 MG TABLET PO SCH ×3 (00:26→21:12)
[2018-07-11] MEDS: QUEtiapine FUMARATE 25 MG TABLET PO SCH ×2 (00:26→22:06)
[2018-07-11] MEDS ORDERED: NICARDipine 20 MG/DEXT,ISO-OSM 200 ML IV PRN (01:45)
[2018-07-11 08:00] VITALS: BP 136/76
[2018-07-11] MEDS: PANTOPRAZOLE SODIUM 40 MG/VIAL IVP SCH (08:53)
[2018-07-11] MEDS: AmLODIPine BESYLATE 10 MG TABLET PO SCH (08:53)
[2018-07-11] MEDS: ASPIRIN 81 MG CHEWABLE TABLET PO SCH (08:53)
[2018-07-11] MEDS: HydrALAZINE HCL 50 MG TABLET PO SCH ×3 (08:54→21:00)
[2018-07-11] MEDS: CETIRIZINE HCL 10 MG TABLET PO SCH (08:54)
[2018-07-11] MEDS: SPIRONOLACTONE 50 MG TABLET PO SCH (08:55)
[2018-07-11] MEDS: CITALOPRAM HYDROBROMIDE 10 MG TABLET PO SCH (08:55)
[2018-07-11 12:00] VITALS: BP 117/69
[2018-07-11] MEDS ORDERED: SODIUM CHLORIDE 0.9% 1,000 ML IV ONE (12:45)
[2018-07-11] MEDS ORDERED: HydrALAZINE HCL 20 MG/ML VIAL IVP PRN (12:45)
[2018-07-11 18:19] VITALS: BP 112/66
[2018-07-11 19:12] VITALS: BP 126/73
[2018-07-11] MEDS ORDERED: ACETAMINOPHEN 500 MG TABLET PO ONE (21:00)
[2018-07-11] MEDS: SIMVASTATIN 20 MG TABLET PO SCH (21:11)
[2018-07-11] MEDS ORDERED: MORPHINE SULFATE 4 MG/ML SYRINGE IVP ONE (22:30)
[2018-07-11 23:18] LABS: C-REACTIVE PROTEIN QUANT 0.43 mg/dL (0.00-0.30)
[2018-07-11 23:30] LABS: LACTIC ACID 0.5 mmol/L (0.4-2.0)
[2018-07-11 23:50] VITALS: BP 126/60
[2018-07-12 04:28] VITALS: BP 118/61
[2018-07-12 06:08] LABS: BASOPHILS % (AUTO) 0.7 % (0.0-2.0); EOSINOPHILS % (AUTO) 2.6 % (1.0-6.0); HEMATOCRIT 33.1 % (36-46); HEMOGLOBIN 11.2 g/dL (12.0-16.0); LYMPHOCYTES # (AUTO) 2.6 K/uL (1.0-4.8); LYMPHOCYTES % (AUTO) 28.7 % (22.0-44.0); MEAN CORPUSCULAR HEMOGLOBIN 27.8 pg (26.0-34.0); MEAN CORPUSCULAR HGB CONC 33.8 G/dL (31.0-37.0); MEAN CORPUSCULAR VOLUME 82 fL (80-100); MONOCYTES # (AUTO) 0.6 K/uL (0.1-1.0); MONOCYTES % (AUTO) 6.6 % (2.0-9.0); NEUTROPHILS # (AUTO) 5.5 K/uL (1.8-7.7); NEUTROPHILS % (AUTO) 61.4 % (40.0-70.0); PLATELET COUNT (AUTO) 195 K/uL (150-450); RED BLOOD CELL COUNT(AUTO) 4.03 MIL/uL (4.00-5.20); RED CELL DISTRIBUTION WIDTH 15.9 % (11.5-14.5)
[2018-07-12 06:45] LABS: CALCIUM, TOTAL 8.2 mg/dL (8.8-10.5); CREATININE 5.16 mg/dL (0.60-1.30)
[2018-07-12 06:48] LABS: POTASSIUM 2.7 mmol/L (3.5-5.1)
[2018-07-12 07:08] VITALS: BP 115/63
[2018-07-12] MEDS ORDERED: SODIUM CHLORIDE 0.9% 0 ML IV ONE (07:16)
[2018-07-12] MEDS: POTASSIUM CHL 10 MEQ/WATER 50 ML IV SCH ×4 (07:32→10:02)
[2018-07-12 08:06] LABS: AMPHET/METH SCREEN,URINE NEGATIVE (NEGATIVE); BARBITURATE SCREEN, URINE NEGATIVE (NEGATIVE); BENZODIAZEPINES SCREEN,URINE NEGATIVE (NEGATIVE); CANNABINOID SCREEN,URINE NEGATIVE (NEGATIVE); COCAINE SCREEN,URINE NEGATIVE (NEGATIVE); METHADONE SCREEN, URINE NEGATIVE (NEGATIVE); OPIATE SCREEN,URINE POSITIVE (NEGATIVE)
[2018-07-12 08:08] LABS: PHENCYCLIDINE SCREEN,URINE NEGATIVE (NEGATIVE)
[2018-07-12] MEDS: ASPIRIN 81 MG CHEWABLE TABLET PO SCH (08:18)
[2018-07-12] MEDS: CETIRIZINE HCL 10 MG TABLET PO SCH (08:18)
[2018-07-12] MEDS: CARVEDILOL 25 MG TABLET PO SCH ×2 (08:18→20:41)
[2018-07-12] MEDS: SPIRONOLACTONE 50 MG TABLET PO SCH (08:18)
[2018-07-12] MEDS: CITALOPRAM HYDROBROMIDE 10 MG TABLET PO SCH (08:18)
[2018-07-12] MEDS: PANTOPRAZOLE SODIUM 40 MG/VIAL IVP SCH (08:19)
[2018-07-12] MEDS: AmLODIPine BESYLATE 10 MG TABLET PO SCH (09:00)
[2018-07-12] MEDS: HydrALAZINE HCL 50 MG TABLET PO SCH ×4 (09:00→20:40)
[2018-07-12 11:18] VITALS: BP 143/78
[2018-07-12] MEDS: MetroNIDAZOLE 500 MG/NACL 100 ML IV SCH ×2 (11:33→20:41)
[2018-07-12] MEDS ORDERED: SODIUM CHLORIDE 0.9% 2,000 ML IV ONE (13:43)
[2018-07-12 15:24] VITALS: BP 113/66
[2018-07-12] MEDS ORDERED: CIPROFLOXACIN 400 MG/D5% WATER 200 ML IV SCH ×2 (20:00→21:00)
[2018-07-12] MEDS: QUEtiapine FUMARATE 25 MG TABLET PO SCH (20:41)
[2018-07-12] MEDS: SIMVASTATIN 20 MG TABLET PO SCH (20:41)
[2018-07-12 21:07] VITALS: BP 150/96
[2018-07-12] MEDS: MORPHINE SULFATE 4 MG/ML SYRINGE IVP PRN (23:20)
[2018-07-12 23:24] VITALS: BP 141/76
[2018-07-13] MEDS: MetroNIDAZOLE 500 MG/NACL 100 ML IV SCH (03:40)
[2018-07-13 04:32] VITALS: BP 141/80
[2018-07-13] MEDS: MORPHINE SULFATE 4 MG/ML SYRINGE IVP PRN ×3 (05:55→20:14)
[2018-07-13 06:01] LABS: BASOPHILS % (AUTO) 0.6 % (0.0-2.0); EOSINOPHILS % (AUTO) 2.5 % (1.0-6.0); HEMATOCRIT 33.2 % (36-46); LYMPHOCYTES # (AUTO) 2.1 K/uL (1.0-4.8); LYMPHOCYTES % (AUTO) 24.4 % (22.0-44.0); MEAN CORPUSCULAR HEMOGLOBIN 27.2 pg (26.0-34.0); MEAN CORPUSCULAR HGB CONC 33.1 G/dL (31.0-37.0); MEAN CORPUSCULAR VOLUME 82 fL (80-100); MONOCYTES # (AUTO) 0.6 K/uL (0.1-1.0); MONOCYTES % (AUTO) 7.5 % (2.0-9.0); NEUTROPHILS # (AUTO) 5.5 K/uL (1.8-7.7); PLATELET COUNT (AUTO) 207 K/uL (150-450); RED BLOOD CELL COUNT(AUTO) 4.04 MIL/uL (4.00-5.20)
[2018-07-13 06:45] LABS: CALCIUM, TOTAL 8.4 mg/dL (8.8-10.5); CREATININE 5.24 mg/dL (0.60-1.30); MAGNESIUM 2.4 mg/dL (1.80-2.40); POTASSIUM 3.1 mmol/L (3.5-5.1)
[2018-07-13 07:24] VITALS: BP 138/78
[2018-07-13] MEDS ORDERED: POTASSIUM CHLORIDE 20 MEQ ER TABLET PO ONE (08:00)
[2018-07-13] MEDS: HydrALAZINE HCL 50 MG TABLET PO SCH ×4 (08:28→20:14)
[2018-07-13] MEDS: CETIRIZINE HCL 10 MG TABLET PO SCH (08:28)
[2018-07-13] MEDS: POTASSIUM CHL 10 MEQ/WATER 50 ML IV SCH ×2 (08:28→10:24)
[2018-07-13] MEDS: CARVEDILOL 25 MG TABLET PO SCH ×2 (08:29→20:14)
[2018-07-13] MEDS: ASPIRIN 81 MG CHEWABLE TABLET PO SCH (08:29)
[2018-07-13] MEDS: PANTOPRAZOLE SODIUM 40 MG/VIAL IVP SCH (08:29)
[2018-07-13] MEDS: CITALOPRAM HYDROBROMIDE 10 MG TABLET PO SCH (08:29)
[2018-07-13] MEDS: AmLODIPine BESYLATE 10 MG TABLET PO SCH (08:29)
[2018-07-13] MEDS: SPIRONOLACTONE 50 MG TABLET PO SCH (08:29)
[2018-07-13 11:23] VITALS: BP 134/78
[2018-07-13] MEDS ORDERED: QUEtiapine FUMARATE 25 MG TABLET PO ONE (12:00)
[2018-07-13 15:21] LABS: CALCIUM, TOTAL 8.2 mg/dL (8.8-10.5); CREATININE 5.31 mg/dL (0.60-1.30); POTASSIUM 3.7 mmol/L (3.5-5.1)
[2018-07-13 16:46] VITALS: BP 129/74
[2018-07-13 19:19] VITALS: BP 140/85
[2018-07-13] MEDS: QUEtiapine FUMARATE 25 MG TABLET PO SCH (20:14)
[2018-07-13] MEDS: SIMVASTATIN 20 MG TABLET PO SCH (20:14)
[2018-07-13 23:58] VITALS: BP 130/61
[2018-07-14 05:05] VITALS: BP 134/90
[2018-07-14] MEDS: MORPHINE SULFATE 4 MG/ML SYRINGE IVP PRN ×2 (05:13→12:13)
[2018-07-14 06:10] LABS: BASOPHILS % (AUTO) 0.4 % (0.0-2.0); EOSINOPHILS % (AUTO) 1.7 % (1.0-6.0); HEMATOCRIT 34.6 % (36-46); HEMOGLOBIN 11.5 g/dL (12.0-16.0); LYMPHOCYTES # (AUTO) 1.3 K/uL (1.0-4.8); LYMPHOCYTES % (AUTO) 16.7 % (22.0-44.0); MEAN CORPUSCULAR HEMOGLOBIN 27.4 pg (26.0-34.0); MEAN CORPUSCULAR HGB CONC 33.1 G/dL (31.0-37.0); MEAN CORPUSCULAR VOLUME 83 fL (80-100); MONOCYTES # (AUTO) 0.7 K/uL (0.1-1.0); MONOCYTES % (AUTO) 8.4 % (2.0-9.0); NEUTROPHILS # (AUTO) 5.7 K/uL (1.8-7.7); NEUTROPHILS % (AUTO) 72.8 % (40.0-70.0); PLATELET COUNT (AUTO) 225 K/uL (150-450); RED BLOOD CELL COUNT(AUTO) 4.19 MIL/uL (4.00-5.20); RED CELL DISTRIBUTION WIDTH 15.7 % (11.5-14.5)
[2018-07-14 06:23] LABS: CALCIUM, TOTAL 8.4 mg/dL (8.8-10.5); CREATININE 5.16 mg/dL (0.60-1.30); POTASSIUM 3.7 mmol/L (3.5-5.1)
[2018-07-14] MEDS ORDERED: SODIUM CHLORIDE 0.9% 1,000 ML IV ONE ×2 (07:00→12:34)
[2018-07-14 07:12] VITALS: BP 131/81
[2018-07-14] MEDS: PANTOPRAZOLE SODIUM 40 MG/VIAL IVP SCH (08:14)
[2018-07-14 11:16] VITALS: BP 140/90
[2018-07-14] MEDS ORDERED: LIDOCAINE/PF 2% 5 ML VIAL INJ ONE (12:00)
[2018-07-14] MEDS ORDERED: PROPOFOL 1% 20 ML VIAL IVP ONE (12:00)
[2018-07-14] MEDS ORDERED: SODIUM CHLORIDE 0.9% 0 ML IV ONE (12:32)
[2018-07-14] MEDS: HydrALAZINE HCL 50 MG TABLET PO SCH ×3 (13:00→17:11)
[2018-07-14] MEDS ORDERED: FAMO-136 PO (13:40)
[2018-07-14] MEDS: CARVEDILOL 25 MG TABLET PO SCH (15:01)
[2018-07-14] MEDS: SPIRONOLACTONE 50 MG TABLET PO SCH (15:01)
[2018-07-14] MEDS: ASPIRIN 81 MG CHEWABLE TABLET PO SCH (15:02)
[2018-07-14] MEDS: CITALOPRAM HYDROBROMIDE 10 MG TABLET PO SCH (15:02)
[2018-07-14] MEDS: AmLODIPine BESYLATE 10 MG TABLET PO SCH (15:02)
[2018-07-14 15:31] VITALS: BP 132/80
[2018-07-14 17:21] LABS: % IRON SATURATION 16.6 % (22-44)
== END 2018-07-14 18:50 | disposition home or self-care (01) | DRG 241 ==
LOC: EMS 18:04 → ICU 07-11 00:37 → 5S 07-11 18:00
PROVIDERS: ADMIT Internal Medicine; ATTEND Internal Medicine
PROC: 0DB98ZX Excision of Duodenum, Via Natural or Artificial Opening Endoscopic, Diagnostic (ICD-10-PCS; 2018-07-14)
PROC: 0DB68ZX Excision of Stomach, Via Natural or Artificial Opening Endoscopic, Diagnostic (ICD-10-PCS; principal; 2018-07-14 08:00)
DX: K25.9 Gastric ulcer, unspecified as acute or chronic, without hemorrhage or perforation (principal); N17.9 Acute kidney failure, unspecified; I12.0 Hypertensive chronic kidney disease with stage 5 chronic kidney disease or end stage renal disease; E66.01 Morbid (severe) obesity due to excess calories; N18.6 End stage renal disease; Z68.41 Body mass index [BMI] 40.0-44.9, adult; F32.9 Major depressive disorder, single episode, unspecified; G43.909 Migraine, unspecified, not intractable, without status migrainosus; N83.209 Unspecified ovarian cyst, unspecified side; E87.6 Hypokalemia; G89.29 Other chronic pain; D64.9 Anemia, unspecified; K76.9 Liver disease, unspecified; R10.9 Unspecified abdominal pain; I16.1 Hypertensive emergency; K21.0 Gastro-esophageal reflux disease with esophagitis; K31.9 Disease of stomach and duodenum, unspecified; K44.9 Diaphragmatic hernia without obstruction or gangrene; K52.9 Noninfective gastroenteritis and colitis, unspecified; Z82.49 Family history of ischemic heart disease and other diseases of the circulatory system; Z83.3 Family history of diabetes mellitus; Z85.05 Personal history of malignant neoplasm of liver; Z86.73 Personal history of transient ischemic attack (TIA), and cerebral infarction without residual deficits; Z92.21 Personal history of antineoplastic chemotherapy; Z88.5 Allergy status to narcotic agent; Z88.8 Allergy status to other drugs, medicaments and biological substances; Z91.012 Allergy to eggs; Z79.899 Other long term (current) drug therapy
CPT/HCPCS: 74176; 74181; 80307; 82728; 83540; 83550; 83605; 83735; 84100; 84132; 85651; 86140; 87081; 88305; 88312; 96374; 96375; 99291; C9113; G0378; J0360; J0744; J2270; J2405; J2704; J2765; J3480; J3490; J7030

== ENCOUNTER 2018-10-25 21:38 | Emergency (ER) | payer OTHER ==
[~2018-10-25] VITALS: Ht 167.6 cm; Wt 111.0 kg
[~2018-10-25 21:38] MED LIST changes: -ASPI81 PO; -CETI-170 PO; +FAMO-136 PO; -FAMO20 PO; -TOPI25 PO
[2018-10-25] MEDS ORDERED: ONDANSETRON HCL 4 MG/2 ML VIAL IVP ONE (22:30)
[2018-10-25] MEDS ORDERED: HydrALAZINE HCL 20 MG/ML VIAL IVP ONE (22:30)
[2018-10-25] MEDS ORDERED: SODIUM CHLORIDE 0.9% 1,000 ML IV ONE (22:30)
[2018-10-25 22:46] LABS: ANION GAP 6 mmol/L (8-16); CALCIUM, TOTAL 7.5 mg/dL (8.8-10.5); CARBON DIOXIDE 33 mmol/L (22-29); CHLORIDE 100 mmol/L (98-107); CREATININE 6.27 mg/dL (0.60-1.30); GLOMERULAR FILTR. RATE CALC 8 mL/min (>60); GLUCOSE,RANDOM 89 mg/dL (70-110); POTASSIUM 3.7 mmol/L (3.5-5.1); SODIUM SERUM 139 mmol/L (136-145); UREA NITROGEN, BLOOD 18 mg/dL (7-18)
[2018-10-25 22:55] LABS: BASOPHILS % (AUTO) 0.6 % (0.0-2.0); EOSINOPHILS % (AUTO) 2.8 % (1.0-6.0); HEMATOCRIT 25.9 % (36-46); HEMOGLOBIN 8.6 g/dL (12.0-16.0); LYMPHOCYTES # (AUTO) 1.8 K/uL (1.0-4.8); LYMPHOCYTES % (AUTO) 27.9 % (22.0-44.0); MEAN CORPUSCULAR HEMOGLOBIN 28.2 pg (26.0-34.0); MEAN CORPUSCULAR HGB CONC 33.4 G/dL (31.0-37.0); MEAN CORPUSCULAR VOLUME 84 fL (80-100); MONOCYTES # (AUTO) 0.8 K/uL (0.1-1.0); MONOCYTES % (AUTO) 12.1 % (2.0-9.0); NEUTROPHILS # (AUTO) 3.6 K/uL (1.8-7.7); NEUTROPHILS % (AUTO) 56.6 % (40.0-70.0); PLATELET COUNT (AUTO) 163 K/uL (150-450); RED BLOOD CELL COUNT(AUTO) 3.07 MIL/uL (4.00-5.20); RED CELL DISTRIBUTION WIDTH 14.6 % (11.5-14.5)
[2018-10-25 23:00] LABS: ALANINE AMINOTRANSFERASE 12 U/L (12-78); ALKALINE PHOSPHATASE 64 U/L (46-116); ASPARTATE AMINOTRANSFERASE 19 U/L (15-37); BILIRUBIN,TOTAL 0.3 mg/dL (0.1-1.0); HCG,QUANTITATIVE < 1 mIU/mL (0-6); LIPASE 92 U/L (73-393); TOTAL PROTEIN, SERUM 6.4 g/dL (6.4-8.2)
[2018-10-25] MEDS ORDERED: MORPHINE SULFATE 4 MG/ML SYRINGE IVP ONE (23:00)
[2018-10-25] MEDS ORDERED: ONDANSETRON HCL 4 MG TABLET PO ONE (23:30)
[2018-10-25] MEDS ORDERED: MORPHINE SULFATE 4 MG/ML SYRINGE IM ONE (23:30)
[2018-10-25] MEDS ORDERED: HydrALAZINE HCL 25 MG TABLET PO ONE (23:30)
[2018-10-26] MEDS ORDERED: CARVEDILOL 3.125 MG TABLET PO ONE (01:15)
[2018-10-26 01:50] VITALS: BP 153/98
[2018-10-26] MEDS ORDERED: ONDANSETRON HCL 4 MG TABLET PO ONE (02:00)
[2018-10-26] MEDS ORDERED: HYDROCODONE/ACETAMINOPHEN 5-325 MG TABLET PO ONE (02:00)
== END 2018-10-26 02:36 | disposition home or self-care (01) ==
LOC: EMS 21:39
DX: R10.12 Left upper quadrant pain (principal); R10.32 Left lower quadrant pain; I12.0 Hypertensive chronic kidney disease with stage 5 chronic kidney disease or end stage renal disease; N18.6 End stage renal disease; K21.9 Gastro-esophageal reflux disease without esophagitis; F32.9 Major depressive disorder, single episode, unspecified; Z88.5 Allergy status to narcotic agent; Z88.8 Allergy status to other drugs, medicaments and biological substances; Z91.012 Allergy to eggs; Z99.2 Dependence on renal dialysis
CPT/HCPCS: 74176; 80053; 83690; 84702; 85025; 96372; 99284; J0360; J2270; J2405; J7030; Q0162 ×2

== ENCOUNTER 2019-06-26 22:52 | Inpatient (IN) | payer OTHER ==
[~2019-06-26] VITALS: Ht 167.6 cm; Wt 96.2 kg
[~2019-06-26 22:52] MED LIST changes: -AMLO-512 PO; +AMLO10TA7 PO
[2019-06-26] MEDS ORDERED: MINO10 PO (22:59)
[2019-06-26] MEDS ORDERED: LOSA100T58 PO (22:59)
[2019-06-26] MEDS ORDERED: CALC667C PO (22:59)
[2019-06-26] MEDS ORDERED: METO50 PO (22:59)
[2019-06-27] MEDS ORDERED: MORPHINE SULFATE 2 MG/ML SYRINGE IVP ONE (00:15)
[2019-06-27 00:51] LABS: ANION GAP 16 mmol/L (8-16); CALCIUM, TOTAL 8.4 mg/dL (8.8-10.5); CARBON DIOXIDE 18 mmol/L (22-29); CHLORIDE 102 mmol/L (98-107); GLOMERULAR FILTR. RATE CALC 5 mL/min (>60); GLUCOSE,RANDOM 88 mg/dL (70-110); POTASSIUM 4.3 mmol/L (3.5-5.1); SODIUM SERUM 136 mmol/L (136-145)
[2019-06-27 01:02] LABS: ALANINE AMINOTRANSFERASE 28 U/L (12-78); ALBUMIN 3.6 g/dL (3.4-5.0); ALKALINE PHOSPHATASE 64 U/L (46-116); ASPARTATE AMINOTRANSFERASE 22 U/L (15-37); BILIRUBIN,TOTAL 0.4 mg/dL (0.1-1.0); HCG,QUANTITATIVE < 1 mIU/mL (0-6); TOTAL PROTEIN, SERUM 6.7 g/dL (6.4-8.2); UREA NITROGEN, BLOOD 85 mg/dL (7-18)
[2019-06-27 01:13] LABS: BASOPHILS % (AUTO) 0.6 % (0.0-2.0); EOSINOPHILS % (AUTO) 2.3 % (1.0-6.0); HEMOGLOBIN 9.7 g/dL (12.0-16.0); LYMPHOCYTES # (AUTO) 1.6 K/uL (1.0-4.8); LYMPHOCYTES % (AUTO) 25.6 % (22.0-44.0); MEAN CORPUSCULAR HEMOGLOBIN 30.2 pg (26.0-34.0); MEAN CORPUSCULAR HGB CONC 34.8 G/dL (31.0-37.0); MEAN CORPUSCULAR VOLUME 87 fL (80-100); MONOCYTES # (AUTO) 0.7 K/uL (0.1-1.0); MONOCYTES % (AUTO) 10.7 % (2.0-9.0); NEUTROPHILS # (AUTO) 3.8 K/uL (1.8-7.7); NEUTROPHILS % (AUTO) 60.8 % (40.0-70.0); PLATELET COUNT (AUTO) 185 K/uL (150-450); RED BLOOD CELL COUNT(AUTO) 3.22 MIL/uL (4.00-5.20); RED CELL DISTRIBUTION WIDTH 16.2 % (11.5-14.5)
[2019-06-27] MEDS ORDERED: HydrALAZINE HCL 20 MG/ML VIAL IVP ONE ×2 (02:30→06:45)
[2019-06-27] MEDS ORDERED: LABETALOL HCL 5 MG/ML 20 ML VIAL IVP ONE ×2 (03:30→10:45)
[2019-06-27] MEDS ORDERED: ACETAMINOPHEN 325 MG TABLET PO PRN ×2 (03:45→09:45)
[2019-06-27] MEDS ORDERED: 0.9% SODIUM CHLORIDE 10 ML SYRINGE IVP PRN (03:45)
[2019-06-27] MEDS ORDERED: MAGNESIUM HYDROXIDE SUSPENSION 30 ML UDCUP PO PRN (09:45)
[2019-06-27] MEDS ORDERED: ZOLPIDEM TARTRATE 5 MG TABLET PO PRN (09:45)
[2019-06-27] MEDS ORDERED: SUMAtriptan SUCCINATE 25 MG TABLET PO PRN (09:45)
[2019-06-27] MEDS ORDERED: HYDROCODONE/ACETAMINOPHEN 5-325 MG TABLET PO PRN (09:45)
[2019-06-27] MEDS ORDERED: BISACODYL 10 MG RECTAL RECTAL SUPPOSITORY PR PRN (09:45)
[2019-06-27] MEDS ORDERED: NITROGLYCERIN 2% (1 GM=INCH) PACKET TP ONE (10:45)
[2019-06-27] MEDS: ONDANSETRON HCL 4 MG/2 ML VIAL IVP PRN (10:52)
[2019-06-27] MEDS: MORPHINE SULFATE 2 MG/ML SYRINGE IVP PRN (10:53)
[2019-06-27] MEDS: LOSARTAN POTASSIUM 50 MG TABLET PO SCH (12:06)
[2019-06-27] MEDS: CARVEDILOL 25 MG TABLET PO SCH ×2 (12:06→20:56)
[2019-06-27 13:15] VITALS: BP 181/108
[2019-06-27] MEDS ORDERED: TRAZ-252 PO (13:27)
[2019-06-27] MEDS ORDERED: DOCU-275 PO (13:27)
[2019-06-27] MEDS ORDERED: METO-558 PO (13:27)
[2019-06-27] MEDS ORDERED: TOPI25 PO (13:27)
[2019-06-27] MEDS ORDERED: ASPI81 PO (13:27)
[2019-06-27] MEDS ORDERED: FURO80 PO (13:27)
[2019-06-27] MEDS ORDERED: VENL-53 PO (13:27)
[2019-06-27] MEDS ORDERED: ERGO500054 PO (13:27)
[2019-06-27] MEDS ORDERED: NIFE-39 PO (13:27)
[2019-06-27] MEDS ORDERED: HYDR-2924 PO (13:27)
[2019-06-27] MEDS: HydrALAZINE HCL 50 MG TABLET PO SCH ×5 (13:32→23:18)
[2019-06-27 15:23] LABS: APPEARANCE,URINE CLEAR (CLEAR); BILIRUBIN,URINE NEGATIVE (NEGATIVE); GLUCOSE, URINE (UA) 100 mg/dL (NEGATIVE); KETONES,URINE NEGATIVE (NEGATIVE); LEUKOCYTE ESTERASE ,URINE NEGATIVE (NEGATIVE); NITRATE,URINE NEGATIVE (NEGATIVE); OCCULT BLOOD,URINE NEGATIVE (NEGATIVE); PH,URINE 7.5 (5.0-8.0); PROTEIN,URINE SEE CONFIRM (NEGATIVE); UROBILINOGEN,URINE 0.2 mg/dL (<=1.0)
[2019-06-27 15:38] LABS: BACTERIA,URINE Rare /HPF (None Seen); RBC,URINE 0-2 /HPF (0-2); SQUAMOUS EPITHELIAL CELL,UR Moderate /LPF (None Seen); SULFOSALICYLIC ACID,URINE 2+ (Negative); WBC,URINE 0-2 /HPF (0-5)
[2019-06-27 16:01] VITALS: BP 138/87
[2019-06-27] MEDS: METOPROLOL TARTRATE 50 MG TABLET PO SCH ×2 (16:13→20:56)
[2019-06-27] MEDS: HEPARIN SODIUM,PORCINE 5,000 UNITS/ML VIAL SQ SCH ×2 (16:13→23:19)
[2019-06-27] MEDS: CALCIUM ACETATE 667 MG CAPSULE PO SCH ×2 (16:13→18:12)
[2019-06-27] MEDS: MINOXIDIL 10 MG TABLET PO SCH ×2 (16:55→20:58)
[2019-06-27 17:03] VITALS: BP 143/82
[2019-06-27 20:35] VITALS: BP 138/68
[2019-06-27] MEDS: FAMOTIDINE 20 MG TABLET PO SCH (20:57)
[2019-06-27] MEDS: SIMVASTATIN 20 MG TABLET PO SCH (20:57)
[2019-06-27] MEDS: DOCUSATE SODIUM 100 MG CAPSULE PO SCH (20:57)
[2019-06-27] MEDS: QUEtiapine FUMARATE 25 MG TABLET PO SCH (20:58)
[2019-06-27 23:10] VITALS: BP 142/74
[2019-06-28 05:38] VITALS: BP 124/65
[2019-06-28 07:51] VITALS: BP 118/48
[2019-06-28] MEDS: DOCUSATE SODIUM 100 MG CAPSULE PO SCH ×2 (08:40→21:00)
[2019-06-28] MEDS: FAMOTIDINE 20 MG TABLET PO SCH ×2 (08:40→21:13)
[2019-06-28] MEDS: CALCIUM ACETATE 667 MG CAPSULE PO SCH ×3 (08:40→18:00)
[2019-06-28] MEDS: SPIRONOLACTONE 50 MG TABLET PO SCH (08:40)
[2019-06-28] MEDS: PANTOPRAZOLE SODIUM 40 MG DR TABLET PO SCH (08:41)
[2019-06-28] MEDS: HEPARIN SODIUM,PORCINE 5,000 UNITS/ML VIAL SQ SCH ×3 (08:41→23:50)
[2019-06-28] MEDS: CITALOPRAM HYDROBROMIDE 10 MG TABLET PO SCH (08:41)
[2019-06-28] MEDS: AmLODIPine BESYLATE 10 MG TABLET PO SCH (08:41)
[2019-06-28] MEDS: MINOXIDIL 10 MG TABLET PO SCH ×3 (09:00→21:00)
[2019-06-28] MEDS: HydrALAZINE HCL 50 MG TABLET PO SCH ×4 (09:00→21:00)
[2019-06-28] MEDS: LOSARTAN POTASSIUM 50 MG TABLET PO SCH (09:00)
[2019-06-28] MEDS: CARVEDILOL 25 MG TABLET PO SCH ×2 (09:00→21:13)
[2019-06-28] MEDS: METOPROLOL TARTRATE 50 MG TABLET PO SCH ×3 (09:00→21:13)
[2019-06-28 09:41] VITALS: BP 119/57
[2019-06-28 12:16] VITALS: BP 130/63
[2019-06-28] MEDS: MORPHINE SULFATE 2 MG/ML SYRINGE IVP PRN (15:09)
[2019-06-28] MEDS: ONDANSETRON HCL 4 MG/2 ML VIAL IVP PRN (15:09)
[2019-06-28] MEDS ORDERED: SODIUM CHLORIDE 0.9% 1,000 ML ONE (15:29)
[2019-06-28 15:42] VITALS: BP 130/57
[2019-06-28 17:55] LABS: CALCIUM, TOTAL 8.3 mg/dL (8.8-10.5); CREATININE 7.54 mg/dL (0.60-1.30); POTASSIUM 4.1 mmol/L (3.5-5.1)
[2019-06-28 19:58] VITALS: BP 136/83
[2019-06-28] MEDS: SIMVASTATIN 20 MG TABLET PO SCH (21:13)
[2019-06-28] MEDS: QUEtiapine FUMARATE 25 MG TABLET PO SCH (21:14)
[2019-06-29 00:18] VITALS: BP 108/45
[2019-06-29 04:07] VITALS: BP 110/56
[2019-06-29] MEDS ORDERED: SODIUM CHLORIDE 0.9% 2,000 ML ONE (07:28)
[2019-06-29 07:43] LABS: BASOPHILS % (AUTO) 0.5 % (0.0-2.0); EOSINOPHILS % (AUTO) 1.7 % (1.0-6.0); HEMATOCRIT 27.6 % (36-46); HEMOGLOBIN 9.4 g/dL (12.0-16.0); LYMPHOCYTES # (AUTO) 1.2 K/uL (1.0-4.8); LYMPHOCYTES % (AUTO) 24.7 % (22.0-44.0); MEAN CORPUSCULAR HEMOGLOBIN 29.9 pg (26.0-34.0); MEAN CORPUSCULAR HGB CONC 34.2 G/dL (31.0-37.0); MEAN CORPUSCULAR VOLUME 88 fL (80-100); MONOCYTES # (AUTO) 0.6 K/uL (0.1-1.0); MONOCYTES % (AUTO) 13.3 % (2.0-9.0); NEUTROPHILS # (AUTO) 2.9 K/uL (1.8-7.7); NEUTROPHILS % (AUTO) 59.8 % (40.0-70.0); PLATELET COUNT (AUTO) 164 K/uL (150-450); RED BLOOD CELL COUNT(AUTO) 3.15 MIL/uL (4.00-5.20); RED CELL DISTRIBUTION WIDTH 16.8 % (11.5-14.5)
[2019-06-29 07:48] VITALS: BP 117/50
[2019-06-29 07:53] LABS: CALCIUM, TOTAL 8.3 mg/dL (8.8-10.5); CREATININE 7.59 mg/dL (0.60-1.30); POTASSIUM 4.1 mmol/L (3.5-5.1)
[2019-06-29] MEDS: HEPARIN SODIUM,PORCINE 5,000 UNITS/ML VIAL SQ SCH (08:00)
[2019-06-29] MEDS: CALCIUM ACETATE 667 MG CAPSULE PO SCH ×2 (08:00→11:34)
[2019-06-29] MEDS: HydrALAZINE HCL 50 MG TABLET PO SCH ×2 (09:00→13:32)
[2019-06-29] MEDS: DOCUSATE SODIUM 100 MG CAPSULE PO SCH (09:00)
[2019-06-29] MEDS: AmLODIPine BESYLATE 10 MG TABLET PO SCH (09:00)
[2019-06-29] MEDS: LOSARTAN POTASSIUM 50 MG TABLET PO SCH (09:00)
[2019-06-29] MEDS: METOPROLOL TARTRATE 50 MG TABLET PO SCH (09:00)
[2019-06-29] MEDS: CARVEDILOL 25 MG TABLET PO SCH (09:00)
[2019-06-29] MEDS: MINOXIDIL 10 MG TABLET PO SCH (09:00)
[2019-06-29] MEDS: FAMOTIDINE 20 MG TABLET PO SCH (09:00)
[2019-06-29 10:31] VITALS: BP 129/76
[2019-06-29] MEDS: CITALOPRAM HYDROBROMIDE 10 MG TABLET PO SCH (11:35)
[2019-06-29] MEDS: SPIRONOLACTONE 50 MG TABLET PO SCH (11:35)
[2019-06-29] MEDS: PANTOPRAZOLE SODIUM 40 MG DR TABLET PO SCH (11:39)
[2019-06-29] MEDS ORDERED: AMLO10TA7 PO (12:21)
[2019-06-29] MEDS ORDERED: CARV25 PO (12:23)
[2019-06-29] MEDS ORDERED: CITA10TA68 PO (13:00)
[2019-06-29] MEDS ORDERED: HYDR-2924 PO (13:01)
[2019-06-29] MEDS ORDERED: LOSA50TA64 PO (13:03)
[2019-06-29] MEDS ORDERED: PANT40TA25 PO (13:05)
[2019-06-29] MEDS ORDERED: MINO10 PO (13:05)
[2019-06-29 13:27] VITALS: BP 139/70
[2019-06-29 14:18] VITALS: BP 138/66
== END 2019-06-29 14:20 | disposition home or self-care (01) | DRG 199 ==
LOC: EMS 22:54 → 5N 06-27 09:53
PROVIDERS: ADMIT Internal Medicine; ATTEND Internal Medicine
PROC: 5A1D70Z Performance of Urinary Filtration, Intermittent, Less than 6 Hours Per Day (ICD-10-PCS; principal; 2019-06-28)
PROC: 5A1D70Z Performance of Urinary Filtration, Intermittent, Less than 6 Hours Per Day (ICD-10-PCS; 2019-06-29)
DX: I16.0 Hypertensive urgency (principal); N18.6 End stage renal disease; I12.0 Hypertensive chronic kidney disease with stage 5 chronic kidney disease or end stage renal disease; D63.1 Anemia in chronic kidney disease; E78.5 Hyperlipidemia, unspecified; G43.909 Migraine, unspecified, not intractable, without status migrainosus; F32.9 Major depressive disorder, single episode, unspecified; K21.9 Gastro-esophageal reflux disease without esophagitis; K76.9 Liver disease, unspecified; Z85.05 Personal history of malignant neoplasm of liver; Z86.73 Personal history of transient ischemic attack (TIA), and cerebral infarction without residual deficits; Z99.2 Dependence on renal dialysis; Z88.8 Allergy status to other drugs, medicaments and biological substances; Z91.012 Allergy to eggs; Z79.899 Other long term (current) drug therapy
CPT/HCPCS: 74176; 76830; 76856; 87081; 87340; 93005; 96374; 96375; 96376; 99291; J0360; J1644; J2270; J2405; J3490; J7030

== ENCOUNTER 2021-03-10 00:14 | Inpatient (IN) | payer MEDICAID, OTHER ==
[~2021-03-10] VITALS: Ht 170.2 cm; Wt 88.0 kg
[~2021-03-10 00:14] MED LIST changes: +AMLO-258 PO; -AMLO10TA7 PO; +ASPI-1450 PO; +CALC667C PO; -CITA10TA68 PO; +CITA10TA99 PO; +DOCU-270 PO; -FAMO-136 PO; -HYDR-4174 PO; +HYDR50TA36 PO; +LOSA50TA37 PO; +MINO10 PO; -ONDA4TAB4 PO; +PANT-31 PO; -SPIR50 PO; +SPIR50TA27 PO; +TRAZ-252 PO
[2021-03-10 00:54] LABS: GLUCOMETER DEV NAME(LOC) ERT.5; GLUCOSE,POINT OF CARE 122 MG/DL (70-110)
[2021-03-10] MEDS ORDERED: ONDANSETRON HCL 4 MG/2 ML VIAL IVP ONE (01:00)
[2021-03-10] MEDS ORDERED: MORPHINE SULFATE 4 MG/ML SYRINGE IVP ONE (01:00)
[2021-03-10 01:17] LABS: COVID AG,FIA SOURCE NASOPHARYNGEAL
[2021-03-10 01:47] LABS: BASOPHILS % (AUTO) 0.7 % (0.0-2.0); EOSINOPHILS % (AUTO) 0.9 % (1.0-6.0); HEMATOCRIT 23.2 % (36-46); HEMOGLOBIN 7.6 g/dL (12.0-16.0); LYMPHOCYTES # (AUTO) 0.6 K/uL (1.0-4.8); LYMPHOCYTES % (AUTO) 8.6 % (22.0-44.0); MEAN CORPUSCULAR HEMOGLOBIN 30.5 pg (26.0-34.0); MEAN CORPUSCULAR HGB CONC 32.8 G/dL (31.0-37.0); MEAN CORPUSCULAR VOLUME 93 fL (80-100); MONOCYTES # (AUTO) 0.4 K/uL (0.1-1.0); MONOCYTES % (AUTO) 5.9 % (2.0-9.0); NEUTROPHILS # (AUTO) 6.3 K/uL (1.8-7.7); NEUTROPHILS % (AUTO) 83.9 % (40.0-70.0); PLATELET COUNT (AUTO) 183 K/uL (150-450); RED BLOOD CELL COUNT(AUTO) 2.49 MIL/uL (4.00-5.20); RED CELL DISTRIBUTION WIDTH 15.3 % (11.5-14.5)
[2021-03-10 01:57] LABS: PROTHROMBIN TIME 10.9 SEC (9.4-11.6)
[2021-03-10 01:58] LABS: ANION GAP 15 mmol/L (8-16); CARBON DIOXIDE 24 mmol/L (22-29); CHLORIDE 101 mmol/L (98-107); CREATININE 11.51 mg/dL (0.60-1.30); GLOMERULAR FILTR. RATE CALC 4 mL/min (>60); GLUCOSE,RANDOM 115 mg/dL (70-110); POTASSIUM 4.4 mmol/L (3.5-5.1); SODIUM SERUM 140 mmol/L (136-145); UREA NITROGEN, BLOOD 56 mg/dL (7-18)
[2021-03-10 02:03] LABS: B-TYPE NATRIURETIC PEPTIDE 3810 pg/mL (0-100)
[2021-03-10 02:11] LABS: ALANINE AMINOTRANSFERASE 27 U/L (12-78); ALBUMIN 3.2 g/dL (3.4-5.0); ALKALINE PHOSPHATASE 76 U/L (46-116); ASPARTATE AMINOTRANSFERASE 23 U/L (15-37); BILIRUBIN,TOTAL 0.4 mg/dL (0.1-1.0); HCG,QUANTITATIVE < 1 mIU/mL (0-6); LIPASE 141 U/L (73-393); TOTAL PROTEIN, SERUM 6.7 g/dL (6.4-8.2)
[2021-03-10] MEDS ORDERED: LABETALOL HCL 5 MG/ML 20 ML VIAL IVP ONE (02:30)
[2021-03-10] MEDS ORDERED: HYDROmorphone 2 MG/ML VIAL IVP ONE (03:15)
[2021-03-10] MEDS ORDERED: SUMAtriptan SUCCINATE 25 MG TABLET PO PRN (04:30)
[2021-03-10] MEDS ORDERED: LABETALOL HCL 5 MG/ML 20 ML VIAL IVP PRN (04:30)
[2021-03-10] MEDS ORDERED: ACETAMINOPHEN 325 MG TABLET PO PRN (04:30)
[2021-03-10] MEDS ORDERED: NiCARDipine HCL 50 MG in DEXTROSE 5%-WATER 230 ML IV PRN (04:30)
[2021-03-10 04:56] LABS: % IRON SATURATION 19.7 % (22-44); IRON, SERUM 27 mcg/dL (50-175); TOTAL IRON BINDING CAPACITY 137 mcg/dL (250-450)
[2021-03-10] MEDS: NITROGLYCERIN 2% (1 GM=INCH) PACKET TP SCH ×3 (05:59→20:00)
[2021-03-10] MEDS: HYDROmorphone 2 MG/ML VIAL IVP PRN ×4 (07:00→22:59)
[2021-03-10] MEDS: ONDANSETRON HCL 4 MG/2 ML VIAL IVP PRN (07:00)
[2021-03-10] MEDS: ASPIRIN 81 MG CHEWABLE TABLET PO SCH (08:11)
[2021-03-10] MEDS: DOCUSATE SODIUM 100 MG CAPSULE PO SCH (08:11)
[2021-03-10] MEDS: PANTOPRAZOLE SODIUM 40 MG DR TABLET PO SCH (08:12)
[2021-03-10] MEDS: HEPARIN SODIUM,PORCINE 5,000 UNITS/ML VIAL SQ SCH ×2 (08:15→20:30)
[2021-03-10] MEDS ORDERED: SPIRONOLACTONE 50 MG TABLET PO SCH (09:00)
[2021-03-10] MEDS: CALCIUM ACETATE 667 MG CAPSULE PO SCH ×6 (10:11→22:20)
[2021-03-10] MEDS: FERROUS SULFATE 325 MG EC TABLET PO SCH (10:11)
[2021-03-10] MEDS: LOSARTAN POTASSIUM 50 MG TABLET PO SCH (10:12)
[2021-03-10] MEDS: CARVEDILOL 25 MG TABLET PO SCH ×2 (10:12→20:31)
[2021-03-10] MEDS: HydrALAZINE HCL 50 MG TABLET PO SCH ×5 (10:12→20:31)
[2021-03-10] MEDS: CITALOPRAM HYDROBROMIDE 10 MG TABLET PO SCH (10:12)
[2021-03-10] MEDS: TraZODone HCL 50 MG TABLET PO SCH (10:15)
[2021-03-10] MEDS: MINOXIDIL 10 MG TABLET PO SCH ×3 (10:16→21:19)
[2021-03-10 12:00] VITALS: BP 158/92
[2021-03-10 16:00] VITALS: BP 115/85
[2021-03-10 20:00] VITALS: BP 124/86
[2021-03-10] MEDS: QUEtiapine FUMARATE 25 MG TABLET PO SCH (20:31)
[2021-03-10] MEDS: SIMVASTATIN 20 MG TABLET PO SCH (20:31)
[2021-03-10 20:59] LABS: APPEARANCE,URINE CLOUDY (CLEAR); BILIRUBIN,URINE NEGATIVE (NEGATIVE); GLUCOSE, URINE (UA) 100 mg/dL (NEGATIVE); KETONES,URINE NEGATIVE (NEGATIVE); LEUKOCYTE ESTERASE ,URINE TRACE (NEGATIVE); NITRATE,URINE NEGATIVE (NEGATIVE); OCCULT BLOOD,URINE LARGE (NEGATIVE); PH,URINE 7.5 (5.0-8.0); PROTEIN,URINE SEE CONFIRM (NEGATIVE); UROBILINOGEN,URINE 0.2 mg/dL (<=1.0)
[2021-03-10 21:04] LABS: AMPHET/METH SCREEN,URINE NEGATIVE (NEGATIVE); BARBITURATE SCREEN, URINE NEGATIVE (NEGATIVE); BENZODIAZEPINES SCREEN,URINE NEGATIVE (NEGATIVE); CANNABINOID SCREEN,URINE NEGATIVE (NEGATIVE); COCAINE SCREEN,URINE NEGATIVE (NEGATIVE); METHADONE SCREEN, URINE NEGATIVE (NEGATIVE); OPIATE SCREEN,URINE POSITIVE (NEGATIVE)
[2021-03-10 21:05] LABS: AMORPHOUS SEDIMENT,UR Few /LPF (None Seen); BACTERIA,URINE Few /HPF (None Seen); SQUAMOUS EPITHELIAL CELL,UR Moderate /LPF (None Seen); SULFOSALICYLIC ACID,URINE 4+ (Negative)
[2021-03-10 21:06] LABS: FINE GRANULAR CASTS,URINE 0-2 /LPF (None Seen); PHENCYCLIDINE SCREEN,URINE NEGATIVE (NEGATIVE)
[2021-03-10 23:00] VITALS: BP 119/54
[2021-03-11] VITALS (7 sets, daily range): BP systolic 80–120; BP diastolic 35–66
[2021-03-11 05:09] LABS: BASOPHILS % (AUTO) 0.6 % (0.0-2.0); EOSINOPHILS % (AUTO) 2.2 % (1.0-6.0); HEMATOCRIT 23.6 % (36-46); HEMOGLOBIN 7.7 g/dL (12.0-16.0); LYMPHOCYTES # (AUTO) 0.7 K/uL (1.0-4.8); LYMPHOCYTES % (AUTO) 16.7 % (22.0-44.0); MEAN CORPUSCULAR HEMOGLOBIN 30.5 pg (26.0-34.0); MEAN CORPUSCULAR HGB CONC 32.6 G/dL (31.0-37.0); MEAN CORPUSCULAR VOLUME 94 fL (80-100); MONOCYTES # (AUTO) 0.4 K/uL (0.1-1.0); MONOCYTES % (AUTO) 9.2 % (2.0-9.0); NEUTROPHILS # (AUTO) 3.2 K/uL (1.8-7.7); NEUTROPHILS % (AUTO) 71.3 % (40.0-70.0); PLATELET COUNT (AUTO) 183 K/uL (150-450); RED BLOOD CELL COUNT(AUTO) 2.52 MIL/uL (4.00-5.20); RED CELL DISTRIBUTION WIDTH 15.4 % (11.5-14.5)
[2021-03-11 05:20] LABS: CALCIUM, TOTAL 8.2 mg/dL (8.8-10.5); CREATININE 7.34 mg/dL (0.60-1.30); MAGNESIUM 2.1 mg/dL (1.80-2.40)
[2021-03-11] MEDS: NITROGLYCERIN 2% (1 GM=INCH) PACKET TP SCH ×2 (06:00)
[2021-03-11] MEDS: FERROUS SULFATE 325 MG EC TABLET PO SCH (08:17)
[2021-03-11] MEDS: MINOXIDIL 10 MG TABLET PO SCH ×3 (08:18→21:34)
[2021-03-11] MEDS: CALCIUM ACETATE 667 MG CAPSULE PO SCH ×3 (08:18→17:41)
[2021-03-11] MEDS: PANTOPRAZOLE SODIUM 40 MG DR TABLET PO SCH (08:18)
[2021-03-11] MEDS: ASPIRIN 81 MG CHEWABLE TABLET PO SCH (08:18)
[2021-03-11] MEDS: DOCUSATE SODIUM 100 MG CAPSULE PO SCH (08:19)
[2021-03-11] MEDS: CARVEDILOL 25 MG TABLET PO SCH ×2 (08:19→21:25)
[2021-03-11] MEDS: HydrALAZINE HCL 50 MG TABLET PO SCH ×4 (08:19→21:25)
[2021-03-11] MEDS: TraZODone HCL 50 MG TABLET PO SCH (08:19)
[2021-03-11] MEDS: CITALOPRAM HYDROBROMIDE 10 MG TABLET PO SCH (08:19)
[2021-03-11] MEDS: HEPARIN SODIUM,PORCINE 5,000 UNITS/ML VIAL SQ SCH ×2 (08:20→21:26)
[2021-03-11] MEDS: LOSARTAN POTASSIUM 50 MG TABLET PO SCH (08:20)
[2021-03-11] MEDS ORDERED: SODIUM CHLORIDE 0.9% 2,000 ML ONE (08:49)
[2021-03-11] MEDS ORDERED: EPOETIN ALFA 10,000 UNITS/ML VIAL SQ SCH (09:00)
[2021-03-11] MEDS: HYDROmorphone 2 MG/ML VIAL IVP PRN ×2 (11:08→21:27)
[2021-03-11] MEDS ORDERED: SODIUM CHLORIDE 0.9% 250 ML IV ONE (11:11)
[2021-03-11] MEDS: SOD FERRIC GLUC COMPLX/SUCROSE 125 MG in SODIUM CHLORIDE 0.9% 100 ML IV SCH (11:13)
[2021-03-11] MEDS: QUEtiapine FUMARATE 25 MG TABLET PO SCH (21:25)
[2021-03-11] MEDS: SIMVASTATIN 20 MG TABLET PO SCH (21:32)
[2021-03-11] MEDS: ONDANSETRON HCL 4 MG/2 ML VIAL IVP PRN (22:33)
[2021-03-12] VITALS: BP 101/42
[2021-03-12 03:27] VITALS: BP 112/53
[2021-03-12] MEDS: HYDROmorphone 2 MG/ML VIAL IVP PRN (03:29)
[2021-03-12 04:00] VITALS: BP 104/45
[2021-03-12 04:30] VITALS: BP 106/58
[2021-03-12 05:23] LABS: CREATININE 5.22 mg/dL (0.60-1.30); PHOSPHORUS 3.5 mg/dL (2.5-4.9); POTASSIUM 3.8 mmol/L (3.5-5.1)
[2021-03-12 08:00] VITALS: BP 102/45
[2021-03-12] MEDS: CALCIUM ACETATE 667 MG CAPSULE PO SCH ×2 (08:38→12:15)
[2021-03-12] MEDS: HEPARIN SODIUM,PORCINE 5,000 UNITS/ML VIAL SQ SCH (08:38)
[2021-03-12] MEDS: FERROUS SULFATE 325 MG EC TABLET PO SCH (08:38)
[2021-03-12] MEDS: DOCUSATE SODIUM 100 MG CAPSULE PO SCH (08:38)
[2021-03-12] MEDS: TraZODone HCL 50 MG TABLET PO SCH (08:39)
[2021-03-12] MEDS: ASPIRIN 81 MG CHEWABLE TABLET PO SCH (08:40)
[2021-03-12] MEDS: LOSARTAN POTASSIUM 50 MG TABLET PO SCH (08:41)
[2021-03-12] MEDS: MINOXIDIL 10 MG TABLET PO SCH (08:41)
[2021-03-12] MEDS: CITALOPRAM HYDROBROMIDE 10 MG TABLET PO SCH (08:41)
[2021-03-12] MEDS: CARVEDILOL 25 MG TABLET PO SCH (08:41)
[2021-03-12] MEDS: PANTOPRAZOLE SODIUM 40 MG DR TABLET PO SCH (08:41)
[2021-03-12] MEDS: HydrALAZINE HCL 50 MG TABLET PO SCH ×2 (08:42→13:00)
[2021-03-12] MEDS ORDERED: LOSA50TA37 PO (09:33)
[2021-03-12] MEDS ORDERED: VENL-66 PO (09:36)
[2021-03-12] MEDS ORDERED: NIFE-39 PO (09:36)
[2021-03-12] MEDS: SOD FERRIC GLUC COMPLX/SUCROSE 125 MG in SODIUM CHLORIDE 0.9% 100 ML IV SCH (10:48)
[2021-03-12 12:00] VITALS: BP 114/54
== END 2021-03-12 15:04 | disposition home or self-care (01) | DRG 470 ==
LOC: EMS 00:15 → ICU 10:15
PROVIDERS: ADMIT Internal Medicine; ATTEND Internal Medicine
PROC: 5A1D70Z Performance of Urinary Filtration, Intermittent, Less than 6 Hours Per Day (ICD-10-PCS; principal; 2021-03-10)
PROC: 5A1D70Z Performance of Urinary Filtration, Intermittent, Less than 6 Hours Per Day (ICD-10-PCS; 2021-03-11)
DX: I12.0 Hypertensive chronic kidney disease with stage 5 chronic kidney disease or end stage renal disease (principal); J81.0 Acute pulmonary edema; C22.8 Malignant neoplasm of liver, primary, unspecified as to type; K56.7 Ileus, unspecified; J90 Pleural effusion, not elsewhere classified; N18.6 End stage renal disease; D63.1 Anemia in chronic kidney disease; I16.1 Hypertensive emergency; K21.9 Gastro-esophageal reflux disease without esophagitis; Z20.822 Contact with and (suspected) exposure to COVID-19; N83.201 Unspecified ovarian cyst, right side; G43.909 Migraine, unspecified, not intractable, without status migrainosus; Z99.2 Dependence on renal dialysis; Z82.49 Family history of ischemic heart disease and other diseases of the circulatory system; Z85.05 Personal history of malignant neoplasm of liver; Z85.43 Personal history of malignant neoplasm of ovary; Z86.73 Personal history of transient ischemic attack (TIA), and cerebral infarction without residual deficits; Z91.15 Patient's noncompliance with renal dialysis; Z91.19 Patient's noncompliance with other medical treatment and regimen; Z92.21 Personal history of antineoplastic chemotherapy; Z79.899 Other long term (current) drug therapy; Z88.8 Allergy status to other drugs, medicaments and biological substances; Z91.012 Allergy to eggs; Z91.013 Allergy to seafood
CPT/HCPCS: 71045; 74176; 76856; 80048; 80053; 81001; 81002; 82948; 82962; 83540; 83550; 83605; 83690; 83735; 83880; 84100; 84702; 85025; 85045; 85610; 87081; 87086; 87340; 90935; 93005; 99285; G0378; G0480; J0885; J1170; J1644; J2270; J2405; J2916; J3490; J7030; J7050; J7060; 36415-L1; 36415-TC; C9803

== ENCOUNTER 2021-04-10 20:48 | Inpatient (IN) | payer OTHER ==
[~2021-04-10] VITALS: Ht 167.6 cm; Wt 91.4 kg
[~2021-04-10 20:48] MED LIST changes: -AMLO-258 PO; -ASPI-1450 PO; -CARV25 PO; -CITA10TA99 PO; -DOCU-270 PO; -HYDR50TA36 PO; -MINO10 PO; +NIFE-39 PO; -PANT-31 PO; -QUET25TA PO; -SIMV-260 PO; -SPIR50TA27 PO; -SUMA25TA9 PO; -TRAZ-252 PO; +VENL-66 PO
[2021-04-10 21:42] LABS: BASOPHILS % (AUTO) 0.5 % (0.0-2.0); EOSINOPHILS % (AUTO) 1.4 % (1.0-6.0); HEMATOCRIT 24.1 % (36-46); LYMPHOCYTES # (AUTO) 0.8 K/uL (1.0-4.8); LYMPHOCYTES % (AUTO) 10.4 % (22.0-44.0); MEAN CORPUSCULAR HEMOGLOBIN 30.8 pg (26.0-34.0); MEAN CORPUSCULAR HGB CONC 33.3 G/dL (31.0-37.0); MEAN CORPUSCULAR VOLUME 93 fL (80-100); MONOCYTES # (AUTO) 0.4 K/uL (0.1-1.0); MONOCYTES % (AUTO) 5.5 % (2.0-9.0); NEUTROPHILS # (AUTO) 6.4 K/uL (1.8-7.7); NEUTROPHILS % (AUTO) 82.2 % (40.0-70.0); PLATELET COUNT (AUTO) 194 K/uL (150-450); RED CELL DISTRIBUTION WIDTH 15.5 % (11.5-14.5)
[2021-04-10 22:17] LABS: ALANINE AMINOTRANSFERASE 20 U/L (12-78); ALBUMIN 3.5 g/dL (3.4-5.0); ALKALINE PHOSPHATASE 80 U/L (46-116); ASPARTATE AMINOTRANSFERASE 16 U/L (15-37); BILIRUBIN,TOTAL 0.4 mg/dL (0.1-1.0); CALCIUM, TOTAL 8.8 mg/dL (8.8-10.5); CARBON DIOXIDE 20 mmol/L (22-29); CHLORIDE 102 mmol/L (98-107); CREATINE KINASE, TOTAL ONLY 57 U/L (26-192); CREATININE 15.23 mg/dL (0.60-1.30); GLOMERULAR FILTR. RATE CALC 3 mL/min (>60); GLUCOSE,RANDOM 95 mg/dL (70-110); HCG,QUANTITATIVE < 1 mIU/mL (0-6); LIPASE 134 U/L (73-393); TOTAL PROTEIN, SERUM 7.4 g/dL (6.4-8.2); UREA NITROGEN, BLOOD 98 mg/dL (7-18)
[2021-04-10 22:27] LABS: ANION GAP 15 mmol/L (8-16); POTASSIUM 5.8 mmol/L (3.5-5.1); SODIUM SERUM 137 mmol/L (136-145)
[2021-04-10] MEDS ORDERED: INSULIN REGULAR, HUMAN 100 UNITS/ML IVP ONE (23:00)
[2021-04-10] MEDS ORDERED: DEXTROSE 50%-WATER 25 GM/50 ML SYRINGE IVP ONE (23:00)
[2021-04-10] MEDS ORDERED: ONDANSETRON HCL 4 MG/2 ML VIAL IVP ONE (23:00)
[2021-04-10] MEDS ORDERED: MORPHINE SULFATE 2 MG/ML SYRINGE IVP ONE (23:00)
[2021-04-10] MEDS ORDERED: ALBUTEROL SULFATE 5 MG/ML 20 ML NEB SOLN [BULK] NEB ONE (23:00)
[2021-04-10] MEDS ORDERED: CALCIUM GLUCONATE 100 MG/ML 10 ML IVP ONE (23:00)
[2021-04-10] MEDS ORDERED: HydrALAZINE HCL 20 MG/ML VIAL IVP ONE (23:15)
[2021-04-10] MEDS ORDERED: SODIUM CHLORIDE 0.9% 100 ML ONE (23:29)
[2021-04-10] MEDS ORDERED: IOHEXOL 350 MG/ML 100 ML VIAL ONE (23:29)
[2021-04-10 23:35] LABS: PROTHROMBIN TIME 10.5 SEC (9.4-11.6)
[2021-04-10 23:53] LABS: GLUCOMETER DEV NAME(LOC) ERT.5; GLUCOSE,POINT OF CARE 82 MG/DL (70-110)
[2021-04-11] MEDS ORDERED: ZOLPIDEM TARTRATE 5 MG TABLET PO PRN (00:15)
[2021-04-11] MEDS ORDERED: BISACODYL 10 MG RECTAL RECTAL SUPPOSITORY PR PRN (00:15)
[2021-04-11] MEDS ORDERED: MAGNESIUM HYDROXIDE SUSPENSION 30 ML UDCUP PO PRN (00:15)
[2021-04-11] MEDS ORDERED: ACETAMINOPHEN 325 MG TABLET PO PRN (00:15)
[2021-04-11] MEDS ORDERED: MORPHINE SULFATE 2 MG/ML SYRINGE IVP ONE (01:00)
[2021-04-11] MEDS ORDERED: LABETALOL HCL 5 MG/ML 20 ML VIAL IVP ONE (05:30)
[2021-04-11 06:58] LABS: APPEARANCE,URINE CLOUDY (CLEAR); BILIRUBIN,URINE NEGATIVE (NEGATIVE); GLUCOSE, URINE (UA) 100 mg/dL (NEGATIVE); KETONES,URINE NEGATIVE (NEGATIVE); LEUKOCYTE ESTERASE ,URINE SMALL (NEGATIVE); NITRATE,URINE NEGATIVE (NEGATIVE); OCCULT BLOOD,URINE LARGE (NEGATIVE); PROTEIN,URINE SEE CONFIRM (NEGATIVE); UROBILINOGEN,URINE 0.2 mg/dL (<=1.0)
[2021-04-11 06:59] LABS: CALCIUM, TOTAL 7.8 mg/dL (8.8-10.5); CREATININE 7.48 mg/dL (0.60-1.30); POTASSIUM 3.8 mmol/L (3.5-5.1)
[2021-04-11 07:01] LABS: BACTERIA,URINE Moderate /HPF (None Seen); RBC,URINE >100 /HPF (0-2); SQUAMOUS EPITHELIAL CELL,UR Few /LPF (None Seen); SULFOSALICYLIC ACID,URINE 4+ (Negative)
[2021-04-11] MEDS ORDERED: HEPARIN SODIUM,PORCINE 5,000 UNITS/ML VIAL SQ SCH (08:00)
[2021-04-11] MEDS ORDERED: EPOETIN ALFA 10,000 UNITS/ML VIAL SQ ONE (08:30)
[2021-04-11] MEDS: VENLAFAXINE HCL 37.5 MG ER CAPSULE PO SCH (09:26)
[2021-04-11] MEDS: PANTOPRAZOLE SODIUM 40 MG DR TABLET PO SCH (09:26)
[2021-04-11] MEDS: CALCIUM ACETATE 667 MG CAPSULE PO SCH ×3 (09:26→18:02)
[2021-04-11] MEDS: DOCUSATE SODIUM 100 MG CAPSULE PO SCH ×2 (09:26→20:02)
[2021-04-11] MEDS: NIFEdipine 60 MG ER TABLET PO SCH (09:26)
[2021-04-11] MEDS: LOSARTAN POTASSIUM 50 MG TABLET PO SCH (09:26)
[2021-04-11] MEDS: HydrALAZINE HCL 20 MG/ML VIAL IVP PRN (12:34)
[2021-04-11] MEDS: ONDANSETRON HCL 4 MG/2 ML VIAL IVP PRN ×2 (15:14→20:05)
[2021-04-11] MEDS: MORPHINE SULFATE 2 MG/ML SYRINGE IVP PRN ×2 (15:15→20:01)
[2021-04-11 20:55] VITALS: BP 156/89
[2021-04-12 00:05] VITALS: BP 160/91
[2021-04-12] MEDS ORDERED: MORPHINE SULFATE 2 MG/ML SYRINGE IVP PRN (01:00)
[2021-04-12 04:50] VITALS: BP 160/88
[2021-04-12 08:10] VITALS: BP 161/101
[2021-04-12] MEDS: LOSARTAN POTASSIUM 50 MG TABLET PO SCH (10:00)
[2021-04-12] MEDS: CALCIUM ACETATE 667 MG CAPSULE PO SCH ×3 (10:01→18:19)
[2021-04-12] MEDS: PANTOPRAZOLE SODIUM 40 MG DR TABLET PO SCH (10:01)
[2021-04-12] MEDS: DOCUSATE SODIUM 100 MG CAPSULE PO SCH (10:01)
[2021-04-12] MEDS: NIFEdipine 60 MG ER TABLET PO SCH (10:36)
[2021-04-12] MEDS ORDERED: EPOETIN ALFA 10,000 UNITS/ML VIAL SQ SCH (11:30)
[2021-04-12 11:48] VITALS: BP 159/106
[2021-04-12] MEDS: VENLAFAXINE HCL 37.5 MG ER CAPSULE PO SCH (11:54)
[2021-04-12] MEDS ORDERED: SODIUM CHLORIDE 0.9% 1,000 ML ONE (15:14)
[2021-04-12 15:55] VITALS: BP 180/111
[2021-04-12] MEDS: HydrALAZINE HCL 20 MG/ML VIAL IVP PRN (17:24)
== END 2021-04-12 20:05 | disposition home or self-care (01) | DRG 194 ==
LOC: EMS 20:51 → 5S 04-11 13:13
PROVIDERS: ADMIT Internal Medicine; ATTEND Internal Medicine
PROC: 5A1D70Z Performance of Urinary Filtration, Intermittent, Less than 6 Hours Per Day (ICD-10-PCS; principal; 2021-04-11)
PROC: 5A1D70Z Performance of Urinary Filtration, Intermittent, Less than 6 Hours Per Day (ICD-10-PCS; 2021-04-12)
DX: I13.2 Hypertensive heart and chronic kidney disease with heart failure and with stage 5 chronic kidney disease, or end stage renal disease (principal); D63.1 Anemia in chronic kidney disease; N18.6 End stage renal disease; I50.31 Acute diastolic (congestive) heart failure; E87.5 Hyperkalemia; G43.909 Migraine, unspecified, not intractable, without status migrainosus; I16.0 Hypertensive urgency; K21.9 Gastro-esophageal reflux disease without esophagitis; N83.201 Unspecified ovarian cyst, right side; N83.202 Unspecified ovarian cyst, left side; Z59.00 Homelessness unspecified; Z85.05 Personal history of malignant neoplasm of liver; Z85.43 Personal history of malignant neoplasm of ovary; Z86.73 Personal history of transient ischemic attack (TIA), and cerebral infarction without residual deficits; Z91.15 Patient's noncompliance with renal dialysis; Z92.21 Personal history of antineoplastic chemotherapy; Z99.2 Dependence on renal dialysis; Z88.8 Allergy status to other drugs, medicaments and biological substances; Z91.013 Allergy to seafood; Z91.012 Allergy to eggs
CPT/HCPCS: 71045; 74177; 76817; 76830; 76856; 80048; 80053; 81001; 81002; 82550; 82962; 83690; 83735; 83880; 84484; 84702; 85025; 85610; 85730; 87086; 87340; 93005; 99285; G0378; J0360; J0610; J0885; J1644; J1815; J2270; J2405; J3490; J7030; J7050; Q9967; 36415-L1; 36415-TC; J7611

== ENCOUNTER 2021-04-30 01:42 | Inpatient (IN) | payer OTHER ==
[2021-04-30] VITALS (8 sets, daily range): BP systolic 167–203; BP diastolic 100–134
[~2021-04-30] VITALS: Ht 167.6 cm; Wt 83.8 kg
[2021-04-30] MEDS ORDERED: 0.9% SODIUM CHLORIDE 10 ML SYRINGE IVP PRN (02:15)
[2021-04-30] MEDS ORDERED: MORPHINE SULFATE 4 MG/ML SYRINGE IVP ONE (02:15)
[2021-04-30] MEDS ORDERED: ONDANSETRON HCL 4 MG/2 ML VIAL IVP ONE (02:15)
[2021-04-30] MEDS ORDERED: LABETALOL HCL 5 MG/ML 20 ML VIAL IVP ONE (02:15)
[2021-04-30 02:51] LABS: BASOPHILS % (AUTO) 0.6 % (0.0-2.0); EOSINOPHILS % (AUTO) 1.7 % (1.0-6.0); HEMATOCRIT 26.3 % (36-46); HEMOGLOBIN 8.7 g/dL (12.0-16.0); LYMPHOCYTES # (AUTO) 0.8 K/uL (1.0-4.8); LYMPHOCYTES % (AUTO) 13.4 % (22.0-44.0); MEAN CORPUSCULAR HEMOGLOBIN 30.6 pg (26.0-34.0); MEAN CORPUSCULAR HGB CONC 33.1 G/dL (31.0-37.0); MEAN CORPUSCULAR VOLUME 92 fL (80-100); MONOCYTES # (AUTO) 0.6 K/uL (0.1-1.0); MONOCYTES % (AUTO) 9.5 % (2.0-9.0); NEUTROPHILS # (AUTO) 4.4 K/uL (1.8-7.7); NEUTROPHILS % (AUTO) 74.8 % (40.0-70.0); PLATELET COUNT (AUTO) 160 K/uL (150-450); RED BLOOD CELL COUNT(AUTO) 2.85 MIL/uL (4.00-5.20); RED CELL DISTRIBUTION WIDTH 16.7 % (11.5-14.5)
[2021-04-30 02:58] LABS: ANION GAP 14 mmol/L (8-16); CALCIUM, TOTAL 7.7 mg/dL (8.8-10.5); CARBON DIOXIDE 21 mmol/L (22-29); CHLORIDE 102 mmol/L (98-107); GLOMERULAR FILTR. RATE CALC 4 mL/min (>60); GLUCOSE,RANDOM 121 mg/dL (70-110); POTASSIUM 4.6 mmol/L (3.5-5.1); SODIUM SERUM 137 mmol/L (136-145); UREA NITROGEN, BLOOD 100 mg/dL (7-18)
[2021-04-30 03:03] LABS: D-DIMER 4.02 mg/L FEU (0.00-0.50); PROTHROMBIN TIME 10.7 SEC (9.4-11.6)
[2021-04-30 03:04] LABS: ALANINE AMINOTRANSFERASE 19 U/L (12-78); ALKALINE PHOSPHATASE 76 U/L (46-116); ASPARTATE AMINOTRANSFERASE 20 U/L (15-37); BILIRUBIN,TOTAL 0.4 mg/dL (0.1-1.0); CREATINE KINASE, TOTAL ONLY 46 U/L (26-192); TOTAL PROTEIN, SERUM 6.7 g/dL (6.4-8.2)
[2021-04-30 03:08] LABS: HCG,QUANTITATIVE < 1 mIU/mL (0-6)
[2021-04-30 03:10] LABS: B-TYPE NATRIURETIC PEPTIDE > 5000 pg/mL (0-100)
[2021-04-30] MEDS ORDERED: HydrALAZINE HCL 20 MG/ML VIAL IVP ONE (03:15)
[2021-04-30 03:19] LABS: LACTIC ACID 0.8 mmol/L (0.4-2.0)
[2021-04-30] MEDS ORDERED: ONDANSETRON HCL 4 MG/2 ML VIAL IVP PRN (03:30)
[2021-04-30] MEDS ORDERED: HYDROmorphone 2 MG/ML VIAL IVP ONE (03:30)
[2021-04-30] MEDS ORDERED: ACETAMINOPHEN 325 MG TABLET PO PRN ×2 (03:30→09:45)
[2021-04-30] MEDS ORDERED: IOHEXOL 350 MG/ML 100 ML VIAL ONE (03:33)
[2021-04-30] MEDS ORDERED: SODIUM CHLORIDE 0.9% 100 ML ONE (03:33)
[2021-04-30 04:07] LABS: COVID AG,FIA SOURCE NASOPHARYNGEAL
[2021-04-30] MEDS ORDERED: DiphenhydrAMINE HCL 50 MG/ML VIAL IVP ONE (06:00)
[2021-04-30] MEDS ORDERED: BISACODYL 10 MG RECTAL RECTAL SUPPOSITORY PR PRN (09:45)
[2021-04-30] MEDS ORDERED: MAGNESIUM HYDROXIDE SUSPENSION 30 ML UDCUP PO PRN (09:45)
[2021-04-30] MEDS ORDERED: ZOLPIDEM TARTRATE 5 MG TABLET PO PRN (09:45)
[2021-04-30] MEDS ORDERED: HydrALAZINE HCL 20 MG/ML VIAL IVP PRN (12:00)
[2021-04-30] MEDS: CALCIUM ACETATE 667 MG CAPSULE PO SCH ×2 (13:42→21:04)
[2021-04-30] MEDS: NIFEdipine 60 MG ER TABLET PO SCH (15:07)
[2021-04-30] MEDS: VENLAFAXINE HCL 37.5 MG ER CAPSULE PO SCH (15:07)
[2021-04-30] MEDS: LOSARTAN POTASSIUM 50 MG TABLET PO SCH (15:08)
[2021-04-30] MEDS: HEPARIN SODIUM,PORCINE 5,000 UNITS/ML VIAL SQ SCH ×2 (16:04→23:58)
[2021-04-30] MEDS: HydrALAZINE HCL 20 MG/ML VIAL IVP PRN (18:44)
[2021-04-30] MEDS: MORPHINE SULFATE 2 MG/ML SYRINGE IVP PRN (19:58)
[2021-04-30] MEDS: DOCUSATE SODIUM 100 MG CAPSULE PO SCH (19:58)
[2021-05-01 00:17] VITALS: BP 140/90
[2021-05-01 05:15] VITALS: BP 162/108
[2021-05-01] MEDS: HydrALAZINE HCL 20 MG/ML VIAL IVP PRN ×2 (05:33→20:33)
[2021-05-01 08:32] VITALS: BP 144/100
[2021-05-01] MEDS: PANTOPRAZOLE SODIUM 40 MG DR TABLET PO SCH (08:52)
[2021-05-01] MEDS: CALCIUM ACETATE 667 MG CAPSULE PO SCH ×3 (08:52→20:33)
[2021-05-01] MEDS: VENLAFAXINE HCL 37.5 MG ER CAPSULE PO SCH (08:52)
[2021-05-01] MEDS: LOSARTAN POTASSIUM 50 MG TABLET PO SCH (08:52)
[2021-05-01] MEDS: NIFEdipine 60 MG ER TABLET PO SCH (08:52)
[2021-05-01] MEDS: HEPARIN SODIUM,PORCINE 5,000 UNITS/ML VIAL SQ SCH ×2 (08:52→16:43)
[2021-05-01] MEDS: DOCUSATE SODIUM 100 MG CAPSULE PO SCH ×3 (08:52→20:37)
[2021-05-01] MEDS: MORPHINE SULFATE 2 MG/ML SYRINGE IVP PRN (11:49)
[2021-05-01 11:51] VITALS: BP 127/99
[2021-05-01] MEDS ORDERED: SODIUM CHLORIDE 0.9% 2,000 ML ONE (15:11)
[2021-05-01 15:38] VITALS: BP 151/96
[2021-05-01 20:32] VITALS: BP 157/95
[2021-05-02] VITALS (7 sets, daily range): BP systolic 135–198; BP diastolic 91–121
[2021-05-02] MEDS: HEPARIN SODIUM,PORCINE 5,000 UNITS/ML VIAL SQ SCH ×3 (00:30→16:16)
[2021-05-02] MEDS: MORPHINE SULFATE 2 MG/ML SYRINGE IVP PRN ×3 (00:31→16:16)
[2021-05-02] MEDS: HydrALAZINE HCL 20 MG/ML VIAL IVP PRN (02:56)
[2021-05-02 06:53] LABS: BASOPHILS % (AUTO) 0.8 % (0.0-2.0); EOSINOPHILS % (AUTO) 1.7 % (1.0-6.0); HEMATOCRIT 29.1 % (36-46); HEMOGLOBIN 9.5 g/dL (12.0-16.0); LYMPHOCYTES % (AUTO) 18.2 % (22.0-44.0); MEAN CORPUSCULAR HGB CONC 32.8 G/dL (31.0-37.0); MEAN CORPUSCULAR VOLUME 91 fL (80-100); MONOCYTES # (AUTO) 0.6 K/uL (0.1-1.0); MONOCYTES % (AUTO) 10.4 % (2.0-9.0); NEUTROPHILS # (AUTO) 3.9 K/uL (1.8-7.7); NEUTROPHILS % (AUTO) 68.9 % (40.0-70.0); PLATELET COUNT (AUTO) 246 K/uL (150-450); RED BLOOD CELL COUNT(AUTO) 3.18 MIL/uL (4.00-5.20); RED CELL DISTRIBUTION WIDTH 16.1 % (11.5-14.5)
[2021-05-02 07:05] LABS: ALBUMIN 2.7 g/dL (3.4-5.0); BILIRUBIN,TOTAL 0.4 mg/dL (0.1-1.0); CALCIUM, TOTAL 8.3 mg/dL (8.8-10.5); CREATININE 5.81 mg/dL (0.60-1.30); TOTAL PROTEIN, SERUM 6.2 g/dL (6.4-8.2)
[2021-05-02] MEDS: ONDANSETRON HCL 4 MG/2 ML VIAL IVP PRN ×2 (08:25→16:19)
[2021-05-02] MEDS: VENLAFAXINE HCL 37.5 MG ER CAPSULE PO SCH (08:26)
[2021-05-02] MEDS: PANTOPRAZOLE SODIUM 40 MG DR TABLET PO SCH (08:26)
[2021-05-02] MEDS: LOSARTAN POTASSIUM 50 MG TABLET PO SCH (08:26)
[2021-05-02] MEDS: NIFEdipine 90 MG ER TABLET PO SCH (08:26)
[2021-05-02] MEDS: CALCIUM ACETATE 667 MG CAPSULE PO SCH ×3 (08:26→22:18)
[2021-05-02] MEDS: DOCUSATE SODIUM 100 MG CAPSULE PO SCH ×2 (08:26→20:06)
[2021-05-02] MEDS ORDERED: BARIUM SULFATE 0.1% SUSPENSION 450 ML BOTTLE ONE ×2 (14:23)
[2021-05-02] MEDS: CARVEDILOL 6.25 MG TABLET PO SCH (20:06)
[2021-05-03] VITALS (9 sets, daily range): BP systolic 138–175; BP diastolic 66–108
[2021-05-03] MEDS: HEPARIN SODIUM,PORCINE 5,000 UNITS/ML VIAL SQ SCH ×4 (00:28→23:50)
[2021-05-03] MEDS: ONDANSETRON HCL 4 MG/2 ML VIAL IVP PRN (00:35)
[2021-05-03] MEDS: MORPHINE SULFATE 2 MG/ML SYRINGE IVP PRN ×2 (00:35→04:45)
[2021-05-03] MEDS: HydrALAZINE HCL 20 MG/ML VIAL IVP PRN ×2 (04:45→12:48)
[2021-05-03 06:24] LABS: EOSINOPHILS % (AUTO) 2.3 % (1.0-6.0); HEMATOCRIT 28.8 % (36-46); HEMOGLOBIN 9.5 g/dL (12.0-16.0); LYMPHOCYTES # (AUTO) 1.2 K/uL (1.0-4.8); LYMPHOCYTES % (AUTO) 24.1 % (22.0-44.0); MEAN CORPUSCULAR HEMOGLOBIN 30.1 pg (26.0-34.0); MEAN CORPUSCULAR HGB CONC 33.1 G/dL (31.0-37.0); MEAN CORPUSCULAR VOLUME 91 fL (80-100); MONOCYTES # (AUTO) 0.6 K/uL (0.1-1.0); MONOCYTES % (AUTO) 12.6 % (2.0-9.0); NEUTROPHILS # (AUTO) 2.9 K/uL (1.8-7.7); PLATELET COUNT (AUTO) 265 K/uL (150-450); RED BLOOD CELL COUNT(AUTO) 3.17 MIL/uL (4.00-5.20); RED CELL DISTRIBUTION WIDTH 15.8 % (11.5-14.5)
[2021-05-03 06:58] LABS: ALBUMIN 2.7 g/dL (3.4-5.0); BILIRUBIN,TOTAL 0.3 mg/dL (0.1-1.0); CALCIUM, TOTAL 8.5 mg/dL (8.8-10.5); CREATININE 5.89 mg/dL (0.60-1.30); POTASSIUM 3.8 mmol/L (3.5-5.1)
[2021-05-03] MEDS: NIFEdipine 90 MG ER TABLET PO SCH (08:34)
[2021-05-03] MEDS: DOCUSATE SODIUM 100 MG CAPSULE PO SCH ×2 (08:34→20:15)
[2021-05-03] MEDS: PANTOPRAZOLE SODIUM 40 MG DR TABLET PO SCH (08:34)
[2021-05-03] MEDS: CALCIUM ACETATE 667 MG CAPSULE PO SCH ×3 (08:34→18:00)
[2021-05-03] MEDS: VENLAFAXINE HCL 37.5 MG ER CAPSULE PO SCH (08:34)
[2021-05-03] MEDS: LOSARTAN POTASSIUM 50 MG TABLET PO SCH (08:36)
[2021-05-03] MEDS: CARVEDILOL 6.25 MG TABLET PO SCH ×2 (08:36→20:15)
[2021-05-03] MEDS: EPOETIN ALFA 10,000 UNITS/ML VIAL SQ SCH (09:17)
[2021-05-03] MEDS: HydrALAZINE HCL 25 MG TABLET PO SCH ×3 (13:00→20:15)
[2021-05-03] MEDS: MetroNIDAZOLE 500 MG/NACL 100 ML IV SCH ×2 (14:59→21:30)
[2021-05-03] MEDS ORDERED: CefTRIAXone SODIUM 1 GM/VIAL IM SCH (15:00)
[2021-05-03] MEDS ORDERED: SODIUM CHLORIDE 0.9% 250 ML IV ONE (15:15)
[2021-05-03] MEDS: CefTRIAXone 1 GM/DEXTROSE 50 ML IV SCH (16:47)
[2021-05-03] MEDS: LACTOBACILLUS ACIDOPHILUS/BULGARICUS TABLET PO SCH (20:15)
[2021-05-04] MEDS: HYDROCODONE/ACETAMINOPHEN 5-325 MG TABLET PO PRN ×2 (02:11→16:45)
[2021-05-04 03:45] VITALS: BP 165/105
[2021-05-04] MEDS: MetroNIDAZOLE 500 MG/NACL 100 ML IV SCH ×3 (05:39→21:46)
[2021-05-04] MEDS: HydrALAZINE HCL 20 MG/ML VIAL IVP PRN (05:55)
[2021-05-04 06:47] LABS: BASOPHILS % (AUTO) 1.4 % (0.0-2.0); HEMATOCRIT 29.3 % (36-46); HEMOGLOBIN 9.7 g/dL (12.0-16.0); LYMPHOCYTES # (AUTO) 1.1 K/uL (1.0-4.8); LYMPHOCYTES % (AUTO) 23.3 % (22.0-44.0); MEAN CORPUSCULAR HGB CONC 33.2 G/dL (31.0-37.0); MEAN CORPUSCULAR VOLUME 90 fL (80-100); MONOCYTES # (AUTO) 0.5 K/uL (0.1-1.0); NEUTROPHILS % (AUTO) 62.3 % (40.0-70.0); PLATELET COUNT (AUTO) 271 K/uL (150-450); RED BLOOD CELL COUNT(AUTO) 3.25 MIL/uL (4.00-5.20); RED CELL DISTRIBUTION WIDTH 15.7 % (11.5-14.5)
[2021-05-04 07:23] LABS: ALBUMIN 2.7 g/dL (3.4-5.0); BILIRUBIN,TOTAL 0.2 mg/dL (0.1-1.0); CALCIUM, TOTAL 8.5 mg/dL (8.8-10.5); CREATININE 8.21 mg/dL (0.60-1.30); TOTAL PROTEIN, SERUM 6.1 g/dL (6.4-8.2)
[2021-05-04 08:12] VITALS: BP 181/110
[2021-05-04] MEDS: LACTOBACILLUS ACIDOPHILUS/BULGARICUS TABLET PO SCH ×2 (09:00→21:45)
[2021-05-04] MEDS: DOCUSATE SODIUM 100 MG CAPSULE PO SCH ×2 (09:00→21:45)
[2021-05-04] MEDS: VENLAFAXINE HCL 37.5 MG ER CAPSULE PO SCH (09:00)
[2021-05-04] MEDS: PANTOPRAZOLE SODIUM 40 MG DR TABLET PO SCH (09:19)
[2021-05-04] MEDS: LOSARTAN POTASSIUM 50 MG TABLET PO SCH (09:20)
[2021-05-04] MEDS: HEPARIN SODIUM,PORCINE 5,000 UNITS/ML VIAL SQ SCH ×3 (09:20→23:56)
[2021-05-04] MEDS: CARVEDILOL 6.25 MG TABLET PO SCH ×2 (09:20→21:45)
[2021-05-04] MEDS ORDERED: SODIUM CHLORIDE 0.9% 2,000 ML ONE (10:05)
[2021-05-04 11:52] VITALS: BP 151/99
[2021-05-04] MEDS: CALCIUM ACETATE 667 MG CAPSULE PO SCH ×3 (12:00→18:00)
[2021-05-04] MEDS ORDERED: DiphenhydrAMINE HCL 50 MG/ML VIAL IM ONE (12:31)
[2021-05-04] MEDS: HydrALAZINE HCL 25 MG TABLET PO SCH ×4 (13:00→21:45)
[2021-05-04 15:55] VITALS: BP 148/76
[2021-05-04] MEDS: CefTRIAXone 1 GM/DEXTROSE 50 ML IV SCH (16:43)
[2021-05-04] MEDS: NIFEdipine 90 MG ER TABLET PO SCH (16:44)
[2021-05-04 20:08] VITALS: BP 138/77
[2021-05-04 23:58] VITALS: BP 123/63
[2021-05-05 04:51] VITALS: BP 138/95
[2021-05-05] MEDS: MetroNIDAZOLE 500 MG/NACL 100 ML IV SCH ×3 (05:16→21:55)
[2021-05-05 06:26] LABS: BASOPHILS % (AUTO) 0.8 % (0.0-2.0); EOSINOPHILS % (AUTO) 1.8 % (1.0-6.0); HEMATOCRIT 31.1 % (36-46); HEMOGLOBIN 10.3 g/dL (12.0-16.0); LYMPHOCYTES # (AUTO) 1.2 K/uL (1.0-4.8); LYMPHOCYTES % (AUTO) 21.2 % (22.0-44.0); MEAN CORPUSCULAR HEMOGLOBIN 29.9 pg (26.0-34.0); MEAN CORPUSCULAR HGB CONC 33.3 G/dL (31.0-37.0); MEAN CORPUSCULAR VOLUME 90 fL (80-100); MONOCYTES # (AUTO) 0.7 K/uL (0.1-1.0); MONOCYTES % (AUTO) 12.2 % (2.0-9.0); NEUTROPHILS # (AUTO) 3.5 K/uL (1.8-7.7); PLATELET COUNT (AUTO) 284 K/uL (150-450); RED BLOOD CELL COUNT(AUTO) 3.45 MIL/uL (4.00-5.20); RED CELL DISTRIBUTION WIDTH 16.1 % (11.5-14.5)
[2021-05-05 06:55] LABS: ALBUMIN 2.8 g/dL (3.4-5.0); BILIRUBIN,TOTAL 0.2 mg/dL (0.1-1.0); CALCIUM, TOTAL 8.7 mg/dL (8.8-10.5); CREATININE 6.01 mg/dL (0.60-1.30); MAGNESIUM 2.1 mg/dL (1.80-2.40); PHOSPHORUS 4.7 mg/dL (2.5-4.9); POTASSIUM 3.7 mmol/L (3.5-5.1); TOTAL PROTEIN, SERUM 6.4 g/dL (6.4-8.2)
[2021-05-05 07:20] VITALS: BP 151/90
[2021-05-05] MEDS: PANTOPRAZOLE SODIUM 40 MG DR TABLET PO SCH (09:32)
[2021-05-05] MEDS: LOSARTAN POTASSIUM 50 MG TABLET PO SCH (09:32)
[2021-05-05] MEDS: CALCIUM ACETATE 667 MG CAPSULE PO SCH ×3 (09:32→17:01)
[2021-05-05] MEDS: DOCUSATE SODIUM 100 MG CAPSULE PO SCH ×2 (09:32→21:00)
[2021-05-05] MEDS: VITAMIN B COMP/VIT C/FOLIC ACID CAPSULE PO SCH (09:32)
[2021-05-05] MEDS: CARVEDILOL 6.25 MG TABLET PO SCH ×2 (09:32→21:55)
[2021-05-05] MEDS: HydrALAZINE HCL 25 MG TABLET PO SCH ×4 (09:32→21:54)
[2021-05-05] MEDS: VENLAFAXINE HCL 37.5 MG ER CAPSULE PO SCH (09:33)
[2021-05-05] MEDS: HEPARIN SODIUM,PORCINE 5,000 UNITS/ML VIAL SQ SCH ×3 (09:33→23:41)
[2021-05-05] MEDS: LACTOBACILLUS ACIDOPHILUS/BULGARICUS TABLET PO SCH ×2 (09:35→21:53)
[2021-05-05] MEDS: NIFEdipine 90 MG ER TABLET PO SCH (09:35)
[2021-05-05] MEDS: HydrALAZINE HCL 20 MG/ML VIAL IVP PRN (12:25)
[2021-05-05 12:45] VITALS: BP 153/86
[2021-05-05] MEDS: MORPHINE SULFATE 2 MG/ML SYRINGE IVP PRN ×2 (14:28→21:57)
[2021-05-05] MEDS: CefTRIAXone 1 GM/DEXTROSE 50 ML IV SCH (14:54)
[2021-05-05 16:45] VITALS: BP 142/72
[2021-05-05 19:41] VITALS: BP 120/58
[2021-05-05] MEDS: ONDANSETRON HCL 4 MG/2 ML VIAL IVP PRN (23:41)
[2021-05-06 00:20] VITALS: BP 134/76
[2021-05-06] MEDS ORDERED: SODIUM CHLORIDE 0.9% 250 ML IV ONE ×2 (00:29→15:58)
[2021-05-06 04:43] VITALS: BP 162/92
[2021-05-06] MEDS: MetroNIDAZOLE 500 MG/NACL 100 ML IV SCH ×3 (05:29→21:57)
[2021-05-06] MEDS: MORPHINE SULFATE 2 MG/ML SYRINGE IVP PRN ×2 (05:29→09:42)
[2021-05-06 06:00] VITALS: BP 154/91
[2021-05-06] MEDS: METOCLOPRAMIDE HCL 5 MG TABLET PO SCH ×3 (07:30→17:38)
[2021-05-06] MEDS: CALCIUM ACETATE 667 MG CAPSULE PO SCH ×3 (08:00→17:38)
[2021-05-06] MEDS: HydrALAZINE HCL 25 MG TABLET PO SCH ×5 (09:00→21:55)
[2021-05-06] MEDS: HEPARIN SODIUM,PORCINE 5,000 UNITS/ML VIAL SQ SCH ×2 (09:41→17:38)
[2021-05-06] MEDS: EPOETIN ALFA 10,000 UNITS/ML VIAL SQ SCH (09:42)
[2021-05-06] MEDS: ONDANSETRON HCL 4 MG/2 ML VIAL IVP PRN (09:42)
[2021-05-06] MEDS: HydrALAZINE HCL 20 MG/ML VIAL IVP PRN (10:00)
[2021-05-06 11:22] VITALS: BP 132/95
[2021-05-06] MEDS: CARVEDILOL 6.25 MG TABLET PO SCH ×2 (12:25→21:00)
[2021-05-06] MEDS: DOCUSATE SODIUM 100 MG CAPSULE PO SCH ×2 (12:25→21:00)
[2021-05-06] MEDS: LACTOBACILLUS ACIDOPHILUS/BULGARICUS TABLET PO SCH ×2 (12:25→21:57)
[2021-05-06] MEDS: LOSARTAN POTASSIUM 50 MG TABLET PO SCH (12:26)
[2021-05-06] MEDS: VENLAFAXINE HCL 37.5 MG ER CAPSULE PO SCH (12:26)
[2021-05-06] MEDS: VITAMIN B COMP/VIT C/FOLIC ACID CAPSULE PO SCH (12:26)
[2021-05-06] MEDS: PANTOPRAZOLE SODIUM 40 MG DR TABLET PO SCH (12:26)
[2021-05-06] MEDS: NIFEdipine 90 MG ER TABLET PO SCH (12:26)
[2021-05-06 15:49] VITALS: BP 98/72
[2021-05-06] MEDS: CefTRIAXone 1 GM/DEXTROSE 50 ML IV SCH (15:52)
[2021-05-06 20:04] VITALS: BP 117/57
[2021-05-07 00:24] VITALS: BP 118/61
[2021-05-07] MEDS: HEPARIN SODIUM,PORCINE 5,000 UNITS/ML VIAL SQ SCH ×3 (00:50→16:00)
[2021-05-07 04:41] VITALS: BP 152/90
[2021-05-07] MEDS: MetroNIDAZOLE 500 MG/NACL 100 ML IV SCH ×2 (06:38→14:09)
[2021-05-07] MEDS: MORPHINE SULFATE 2 MG/ML SYRINGE IVP PRN (06:38)
[2021-05-07 07:35] VITALS: BP 168/111
[2021-05-07] MEDS: NIFEdipine 90 MG ER TABLET PO SCH (09:00)
[2021-05-07] MEDS: LOSARTAN POTASSIUM 50 MG TABLET PO SCH ×2 (09:00→12:42)
[2021-05-07] MEDS: METOCLOPRAMIDE HCL 5 MG TABLET PO SCH ×3 (09:42→16:55)
[2021-05-07] MEDS: VENLAFAXINE HCL 37.5 MG ER CAPSULE PO SCH (09:43)
[2021-05-07] MEDS: LACTOBACILLUS ACIDOPHILUS/BULGARICUS TABLET PO SCH (09:43)
[2021-05-07] MEDS: VITAMIN B COMP/VIT C/FOLIC ACID CAPSULE PO SCH (09:43)
[2021-05-07] MEDS: CALCIUM ACETATE 667 MG CAPSULE PO SCH ×2 (09:44→12:03)
[2021-05-07] MEDS: HydrALAZINE HCL 25 MG TABLET PO SCH ×3 (09:44→16:55)
[2021-05-07] MEDS: PANTOPRAZOLE SODIUM 40 MG DR TABLET PO SCH (09:44)
[2021-05-07] MEDS: CARVEDILOL 6.25 MG TABLET PO SCH (09:44)
[2021-05-07] MEDS: DOCUSATE SODIUM 100 MG CAPSULE PO SCH (09:44)
[2021-05-07 11:11] VITALS: BP 167/100
[2021-05-07 11:34] LABS: APPEARANCE,URINE CLEAR (CLEAR); BILIRUBIN,URINE NEGATIVE (NEGATIVE); GLUCOSE, URINE (UA) 100 mg/dL (NEGATIVE); KETONES,URINE NEGATIVE (NEGATIVE); LEUKOCYTE ESTERASE ,URINE NEGATIVE (NEGATIVE); NITRATE,URINE NEGATIVE (NEGATIVE); OCCULT BLOOD,URINE NEGATIVE (NEGATIVE); PH,URINE 8.5 (5.0-8.0); PROTEIN,URINE SEE CONFIRM (NEGATIVE); UROBILINOGEN,URINE 0.2 mg/dL (<=1.0)
[2021-05-07 11:42] LABS: AMPHET/METH SCREEN,URINE NEGATIVE (NEGATIVE); BARBITURATE SCREEN, URINE NEGATIVE (NEGATIVE); BENZODIAZEPINES SCREEN,URINE NEGATIVE (NEGATIVE); CANNABINOID SCREEN,URINE NEGATIVE (NEGATIVE); COCAINE SCREEN,URINE NEGATIVE (NEGATIVE); METHADONE SCREEN, URINE NEGATIVE (NEGATIVE); OPIATE SCREEN,URINE POSITIVE (NEGATIVE)
[2021-05-07 11:58] LABS: PHENCYCLIDINE SCREEN,URINE NEGATIVE (NEGATIVE)
[2021-05-07 12:01] LABS: BACTERIA,URINE None Seen /HPF (None Seen); RBC,URINE None Seen /HPF (0-2); SULFOSALICYLIC ACID,URINE 3+ (Negative); WBC,URINE 0-2 /HPF (0-5)
[2021-05-07 12:02] LABS: SQUAMOUS EPITHELIAL CELL,UR Moderate /LPF (None Seen)
[2021-05-07] MEDS ORDERED: HYDR25TA84 PO (14:27)
[2021-05-07] MEDS ORDERED: LOSA50TA2 PO (14:27)
[2021-05-07] MEDS ORDERED: METO5TAB2 PO (14:27)
[2021-05-07] MEDS ORDERED: CARV6 PO (14:27)
[2021-05-07] MEDS ORDERED: ACID1TAB8 PO (14:27)
[2021-05-07] MEDS ORDERED: PHOSLOC PO (14:27)
[2021-05-07] MEDS ORDERED: NIFE90TA63 PO (14:27)
[2021-05-07] MEDS ORDERED: AMOX-426 PO (14:27)
[2021-05-07] MEDS ORDERED: B CO1CAP6 PO (14:27)
[2021-05-07] MEDS ORDERED: PANT-31 PO (14:27)
[2021-05-07] MEDS ORDERED: METR500 PO (14:27)
[2021-05-07] MEDS: CefTRIAXone 1 GM/DEXTROSE 50 ML IV SCH (15:38)
[2021-05-07 15:58] VITALS: BP 159/96
== END 2021-05-07 17:30 | disposition home or self-care (01) | DRG 194 ==
LOC: EMS 01:44 → 5S 05:00
PROVIDERS: ADMIT Internal Medicine; ATTEND Internal Medicine
PROC: 5A1D70Z Performance of Urinary Filtration, Intermittent, Less than 6 Hours Per Day (ICD-10-PCS; principal; 2021-04-30)
PROC: 5A1D70Z Performance of Urinary Filtration, Intermittent, Less than 6 Hours Per Day (ICD-10-PCS; 2021-05-01)
PROC: 5A1D70Z Performance of Urinary Filtration, Intermittent, Less than 6 Hours Per Day (ICD-10-PCS; 2021-05-02)
PROC: 5A1D70Z Performance of Urinary Filtration, Intermittent, Less than 6 Hours Per Day (ICD-10-PCS; 2021-05-04)
PROC: 5A1D70Z Performance of Urinary Filtration, Intermittent, Less than 6 Hours Per Day (ICD-10-PCS; 2021-05-06)
DX: I13.2 Hypertensive heart and chronic kidney disease with heart failure and with stage 5 chronic kidney disease, or end stage renal disease (principal); N18.6 End stage renal disease; E44.1 Mild protein-calorie malnutrition; I15.8 Other secondary hypertension; D63.1 Anemia in chronic kidney disease; N25.81 Secondary hyperparathyroidism of renal origin; I50.30 Unspecified diastolic (congestive) heart failure; G89.29 Other chronic pain; Z20.822 Contact with and (suspected) exposure to COVID-19; K31.84 Gastroparesis; K21.9 Gastro-esophageal reflux disease without esophagitis; Z99.2 Dependence on renal dialysis; Z91.15 Patient's noncompliance with renal dialysis; Z85.05 Personal history of malignant neoplasm of liver; Z85.43 Personal history of malignant neoplasm of ovary; Z91.19 Patient's noncompliance with other medical treatment and regimen; Z86.73 Personal history of transient ischemic attack (TIA), and cerebral infarction without residual deficits; Z86.711 Personal history of pulmonary embolism; Z86.718 Personal history of other venous thrombosis and embolism; Z92.21 Personal history of antineoplastic chemotherapy; Z79.899 Other long term (current) drug therapy; Z91.013 Allergy to seafood; Z91.012 Allergy to eggs; Z88.8 Allergy status to other drugs, medicaments and biological substances; Z68.30 Body mass index [BMI] 30.0-30.9, adult
CPT/HCPCS: 71045; 71275; 74176; 80053; 81001; 81002; 82550; 83605; 83735; 83880; 84100; 84484; 84702; 85025; 85379; 85610; 85730; 87081; 87340; 90935; 93005; 93970; 99291; G0378; G0480; J0360; J0696; J0885; J1170; J1200; J1644; J2270; J2405; J3490; J7030; J7050; Q9967; 36415-L1; 36415-TC

== ENCOUNTER 2021-05-15 00:37 | Inpatient (IN) | payer OTHER ==
[~2021-05-15] VITALS: Ht 167.6 cm; Wt 86.7 kg
[~2021-05-15 00:37] MED LIST changes: +ACID1TAB8 PO; +AMOX-426 PO; +B CO1CAP6 PO; -CALC667C PO; +CARV6 PO; +HYDR25TA84 PO; +LOSA50TA2 PO; -LOSA50TA37 PO; +METO5TAB2 PO; +METR500 PO; -NIFE-39 PO; +NIFE90TA63 PO; +PANT-31 PO; +PHOSLOC PO; -VENL-66 PO
[2021-05-15] MEDS ORDERED: LABETALOL HCL 5 MG/ML 20 ML VIAL IVP ONE (02:00)
[2021-05-15] MEDS ORDERED: MORPHINE SULFATE 4 MG/ML SYRINGE IVP ONE (02:15)
[2021-05-15] MEDS ORDERED: ONDANSETRON HCL 4 MG/2 ML VIAL IVP ONE ×2 (02:15→04:00)
[2021-05-15 03:22] LABS: BASOPHILS % (AUTO) 0.7 % (0.0-2.0); EOSINOPHILS % (AUTO) 1.6 % (1.0-6.0); HEMATOCRIT 29.3 % (36-46); HEMOGLOBIN 9.5 g/dL (12.0-16.0); LYMPHOCYTES # (AUTO) 0.8 K/uL (1.0-4.8); LYMPHOCYTES % (AUTO) 11.9 % (22.0-44.0); MEAN CORPUSCULAR HEMOGLOBIN 29.8 pg (26.0-34.0); MEAN CORPUSCULAR HGB CONC 32.3 G/dL (31.0-37.0); MEAN CORPUSCULAR VOLUME 92 fL (80-100); MONOCYTES # (AUTO) 0.6 K/uL (0.1-1.0); MONOCYTES % (AUTO) 8.2 % (2.0-9.0); NEUTROPHILS # (AUTO) 5.6 K/uL (1.8-7.7); NEUTROPHILS % (AUTO) 77.6 % (40.0-70.0); PLATELET COUNT (AUTO) 184 K/uL (150-450); RED BLOOD CELL COUNT(AUTO) 3.18 MIL/uL (4.00-5.20); RED CELL DISTRIBUTION WIDTH 16.1 % (11.5-14.5)
[2021-05-15 03:35] LABS: ALANINE AMINOTRANSFERASE 14 U/L (12-78); ALBUMIN 3.6 g/dL (3.4-5.0); ALKALINE PHOSPHATASE 82 U/L (46-116); ANION GAP 17 mmol/L (8-16); ASPARTATE AMINOTRANSFERASE 18 U/L (15-37); BILIRUBIN,TOTAL 0.4 mg/dL (0.1-1.0); CARBON DIOXIDE 19 mmol/L (22-29); CHLORIDE 99 mmol/L (98-107); CREATINE KINASE, TOTAL ONLY 46 U/L (26-192); CREATININE 14.86 mg/dL (0.60-1.30); GLOMERULAR FILTR. RATE CALC 3 mL/min (>60); GLUCOSE,RANDOM 93 mg/dL (70-110); LIPASE 166 U/L (73-393); SODIUM SERUM 135 mmol/L (136-145); TOTAL PROTEIN, SERUM 7.5 g/dL (6.4-8.2); UREA NITROGEN, BLOOD 100 mg/dL (7-18)
[2021-05-15 03:36] LABS: PROTHROMBIN TIME 10.8 SEC (9.4-11.6)
[2021-05-15 03:39] LABS: B-TYPE NATRIURETIC PEPTIDE > 5000 pg/mL (0-100); LACTIC ACID 0.5 mmol/L (0.4-2.0); POTASSIUM 6.2 mmol/L (3.5-5.1)
[2021-05-15 03:40] LABS: HCG,QUANTITATIVE < 1 mIU/mL (0-6)
[2021-05-15] MEDS ORDERED: ALBUTEROL SULFATE 5 MG/ML 20 ML NEB SOLN [BULK] NEB ONE (04:00)
[2021-05-15] MEDS ORDERED: HYDROmorphone 2 MG/ML VIAL IVP ONE (04:00)
[2021-05-15] MEDS ORDERED: HydrALAZINE HCL 20 MG/ML VIAL IVP ONE (04:00)
[2021-05-15] MEDS ORDERED: ACETAMINOPHEN 325 MG TABLET PO PRN ×2 (04:00→08:00)
[2021-05-15] MEDS ORDERED: DEXTROSE 50%-WATER 25 GM/50 ML SYRINGE IVP ONE (04:00)
[2021-05-15] MEDS ORDERED: FUROSEMIDE 40 MG/4 ML VIAL IVP ONE (04:00)
[2021-05-15] MEDS ORDERED: INSULIN REGULAR, HUMAN 100 UNITS/ML IVP ONE (04:00)
[2021-05-15] MEDS ORDERED: ONDANSETRON HCL 4 MG/2 ML VIAL IVP PRN (04:00)
[2021-05-15] MEDS ORDERED: CALCIUM GLUCONATE 100 MG/ML 10 ML IVP ONE (04:00)
[2021-05-15] MEDS ORDERED: SODIUM CHLORIDE 0.9% 50 ML ONE (04:06)
[2021-05-15 04:20] LABS: GLUCOMETER DEV NAME(LOC) ERT.5; GLUCOSE,POINT OF CARE 97 MG/DL (70-110)
[2021-05-15] MEDS ORDERED: 0.9% SODIUM CHLORIDE 5 ML NEB SOLUTION NEB ONE (04:39)
[2021-05-15 05:22] LABS: GLUCOMETER DEV NAME(LOC) ERT.5; GLUCOSE,POINT OF CARE 135 MG/DL (70-110)
[2021-05-15] MEDS ORDERED: OxyCODONE HCL/ACETAMINOPHEN 5-325 MG TABLET PO PRN (08:00)
[2021-05-15] MEDS ORDERED: BISACODYL 10 MG RECTAL RECTAL SUPPOSITORY PR PRN (08:00)
[2021-05-15] MEDS ORDERED: CloNIDine HCL 0.1 MG TABLET PO PRN (08:00)
[2021-05-15] MEDS: FAMOTIDINE 20 MG TABLET PO SCH (08:17)
[2021-05-15] MEDS: DOCUSATE SODIUM 100 MG CAPSULE PO SCH ×2 (08:17→21:00)
[2021-05-15] MEDS: GABAPENTIN 300 MG CAPSULE PO SCH ×3 (08:18→21:39)
[2021-05-15] MEDS: MORPHINE SULFATE 2 MG/ML SYRINGE IVP PRN (08:18)
[2021-05-15] MEDS: LABETALOL HCL 100 MG TABLET PO SCH ×2 (08:18→21:39)
[2021-05-15] MEDS: AmLODIPine BESYLATE 10 MG TABLET PO SCH (08:18)
[2021-05-15] MEDS: HEPARIN SODIUM,PORCINE 5,000 UNITS/ML VIAL SQ SCH ×2 (08:19→21:01)
[2021-05-15 08:36] LABS: ALBUMIN 3.1 g/dL (3.4-5.0); BILIRUBIN,TOTAL 0.5 mg/dL (0.1-1.0); CALCIUM, TOTAL 9.1 mg/dL (8.8-10.5); CREATININE 14.67 mg/dL (0.60-1.30); POTASSIUM 5.1 mmol/L (3.5-5.1); TOTAL PROTEIN, SERUM 6.6 g/dL (6.4-8.2)
[2021-05-15] MEDS: HydrALAZINE HCL 25 MG TABLET PO SCH (17:28)
[2021-05-15] MEDS: METOPROLOL TARTRATE 50 MG TABLET PO SCH (21:02)
[2021-05-15] MEDS: ONDANSETRON HCL 4 MG/2 ML VIAL IVP PRN (23:33)
[2021-05-16 00:06] VITALS: BP 159/77
[2021-05-16] MEDS: HydrALAZINE HCL 25 MG TABLET PO SCH ×2 (00:07→09:10)
[2021-05-16] MEDS: MORPHINE SULFATE 2 MG/ML SYRINGE IVP PRN ×2 (00:08→08:14)
[2021-05-16 04:52] VITALS: BP 145/80
[2021-05-16 07:39] VITALS: BP 151/96
[2021-05-16 09:00] VITALS: BP 147/94
[2021-05-16] MEDS: GABAPENTIN 300 MG CAPSULE PO SCH (09:08)
[2021-05-16] MEDS: AmLODIPine BESYLATE 10 MG TABLET PO SCH (09:10)
[2021-05-16] MEDS: LABETALOL HCL 100 MG TABLET PO SCH (09:10)
[2021-05-16] MEDS: METOPROLOL TARTRATE 50 MG TABLET PO SCH (09:11)
[2021-05-16] MEDS: FAMOTIDINE 20 MG TABLET PO SCH (09:12)
[2021-05-16] MEDS: DOCUSATE SODIUM 100 MG CAPSULE PO SCH (09:13)
[2021-05-16] MEDS: HEPARIN SODIUM,PORCINE 5,000 UNITS/ML VIAL SQ SCH (09:18)
[2021-05-16 10:51] LABS: BASOPHILS % (AUTO) 0.7 % (0.0-2.0); EOSINOPHILS % (AUTO) 1.4 % (1.0-6.0); HEMATOCRIT 25.5 % (36-46); HEMOGLOBIN 8.4 g/dL (12.0-16.0); LYMPHOCYTES # (AUTO) 0.6 K/uL (1.0-4.8); MEAN CORPUSCULAR HEMOGLOBIN 30.2 pg (26.0-34.0); MEAN CORPUSCULAR HGB CONC 32.9 G/dL (31.0-37.0); MEAN CORPUSCULAR VOLUME 92 fL (80-100); MONOCYTES # (AUTO) 0.3 K/uL (0.1-1.0); MONOCYTES % (AUTO) 8.7 % (2.0-9.0); NEUTROPHILS # (AUTO) 2.7 K/uL (1.8-7.7); NEUTROPHILS % (AUTO) 73.2 % (40.0-70.0); PLATELET COUNT (AUTO) 153 K/uL (150-450); RED BLOOD CELL COUNT(AUTO) 2.78 MIL/uL (4.00-5.20); RED CELL DISTRIBUTION WIDTH 16.4 % (11.5-14.5)
[2021-05-16 11:12] LABS: CREATININE 9.92 mg/dL (0.60-1.30); PHOSPHORUS 8.4 mg/dL (2.5-4.9); POTASSIUM 4.8 mmol/L (3.5-5.1)
[2021-05-16 11:35] VITALS: BP 149/99
[2021-05-16] MEDS: ONDANSETRON HCL 4 MG/2 ML VIAL IVP PRN (12:24)
== END 2021-05-16 15:45 | disposition home or self-care (01) | DRG 470 ==
LOC: EMS 00:38 → 5S 22:52
PROVIDERS: ADMIT Internal Medicine; ATTEND Internal Medicine
DX: I12.0 Hypertensive chronic kidney disease with stage 5 chronic kidney disease or end stage renal disease (principal); D63.8 Anemia in other chronic diseases classified elsewhere; N18.6 End stage renal disease; E87.5 Hyperkalemia; I16.1 Hypertensive emergency; G89.29 Other chronic pain; Z20.822 Contact with and (suspected) exposure to COVID-19; F11.20 Opioid dependence, uncomplicated; K21.9 Gastro-esophageal reflux disease without esophagitis; K31.84 Gastroparesis; G43.909 Migraine, unspecified, not intractable, without status migrainosus; E66.9 Obesity, unspecified; F99 Mental disorder, not otherwise specified; Z82.49 Family history of ischemic heart disease and other diseases of the circulatory system; Z83.3 Family history of diabetes mellitus; Z85.05 Personal history of malignant neoplasm of liver; Z86.73 Personal history of transient ischemic attack (TIA), and cerebral infarction without residual deficits; Z90.49 Acquired absence of other specified parts of digestive tract; Z91.15 Patient's noncompliance with renal dialysis; Z91.19 Patient's noncompliance with other medical treatment and regimen; Z92.21 Personal history of antineoplastic chemotherapy; Z99.2 Dependence on renal dialysis; Z76.5 Malingerer [conscious simulation]; Z88.8 Allergy status to other drugs, medicaments and biological substances; Z91.013 Allergy to seafood; Z91.012 Allergy to eggs; Z68.30 Body mass index [BMI] 30.0-30.9, adult
CPT/HCPCS: 71045; 80048; 80053; 82550; 82962; 83605; 83690; 83735; 83880; 84100; 84484; 84702; 85025; 85610; 85730; 87081; 87340; 93005; 94640; 99291; G0378; J0360; J0610; J1170; J1644; J1815; J1940; J2270; J2405; J3490; J7050; 36415-L1; 36415-TC; J7611

== ENCOUNTER 2021-07-06 06:44 | Emergency (ER) | payer OTHER ==
[~2021-07-06] VITALS: Ht 167.6 cm; Wt 81.8 kg
[~2021-07-06 06:44] MED LIST changes: -AMOX-426 PO; -METR500 PO
[2021-07-06] MEDS ORDERED: ONDANSETRON HCL 4 MG/2 ML VIAL IVP ONE (07:00)
[2021-07-06] MEDS ORDERED: MORPHINE SULFATE 2 MG/ML SYRINGE IVP ONE ×2 (07:15→09:30)
[2021-07-06 07:16] LABS: EOSINOPHILS % (AUTO) 3.6 % (1.0-6.0); HEMATOCRIT 32.2 % (36-46); HEMOGLOBIN 10.6 g/dL (12.0-16.0); LYMPHOCYTES # (AUTO) 0.9 K/uL (1.0-4.8); LYMPHOCYTES % (AUTO) 14.6 % (22.0-44.0); MEAN CORPUSCULAR HEMOGLOBIN 28.5 pg (26.0-34.0); MEAN CORPUSCULAR VOLUME 86 fL (80-100); MONOCYTES # (AUTO) 0.6 K/uL (0.1-1.0); MONOCYTES % (AUTO) 9.4 % (2.0-9.0); NEUTROPHILS # (AUTO) 4.3 K/uL (1.8-7.7); NEUTROPHILS % (AUTO) 71.4 % (40.0-70.0); PLATELET COUNT (AUTO) 197 K/uL (150-450); RED BLOOD CELL COUNT(AUTO) 3.73 MIL/uL (4.00-5.20); RED CELL DISTRIBUTION WIDTH 18.6 % (11.5-14.5)
[2021-07-06 07:28] LABS: ANION GAP 7 mmol/L (8-16); CALCIUM, TOTAL 9.1 mg/dL (8.8-10.5); CARBON DIOXIDE 26 mmol/L (22-29); CHLORIDE 104 mmol/L (98-107); CREATININE 6.08 mg/dL (0.60-1.30); GLOMERULAR FILTR. RATE CALC 8 mL/min (>60); GLUCOSE,RANDOM 92 mg/dL (70-110); SODIUM SERUM 137 mmol/L (136-145); UREA NITROGEN, BLOOD 27 mg/dL (7-18)
[2021-07-06 07:36] LABS: ALANINE AMINOTRANSFERASE 18 U/L (12-78); ALBUMIN 3.4 g/dL (3.4-5.0); ALKALINE PHOSPHATASE 78 U/L (46-116); ASPARTATE AMINOTRANSFERASE 17 U/L (15-37); BILIRUBIN,TOTAL 0.4 mg/dL (0.1-1.0); HCG,QUANTITATIVE < 1 mIU/mL (0-6); LIPASE 131 U/L (73-393); TOTAL PROTEIN, SERUM 7.6 g/dL (6.4-8.2)
[2021-07-06] MEDS ORDERED: HydrALAZINE HCL 20 MG/ML VIAL IVP ONE ×2 (09:45→10:00)
[2021-07-06] MEDS ORDERED: MORPHINE SULFATE 4 MG/ML SYRINGE IVP ONE (10:30)
[2021-07-06 10:49] LABS: COVID AG,FIA SOURCE NASOPHARYNGEAL
[2021-07-06] MEDS ORDERED: ACETAMINOPHEN 325 MG TABLET PO PRN (11:00)
[2021-07-06] MEDS ORDERED: AmLODIPine BESYLATE 10 MG TABLET PO SCH (11:00)
[2021-07-06] MEDS ORDERED: BISACODYL 10 MG RECTAL RECTAL SUPPOSITORY PR PRN (11:00)
[2021-07-06] MEDS ORDERED: ONDANSETRON HCL 4 MG/2 ML VIAL IVP PRN (11:00)
[2021-07-06] MEDS ORDERED: CloNIDine HCL 0.1 MG TABLET PO PRN (11:00)
[2021-07-06] MEDS ORDERED: LOSARTAN POTASSIUM 25 MG TABLET PO SCH (11:00)
[2021-07-06] MEDS ORDERED: MORPHINE SULFATE 2 MG/ML SYRINGE IVP PRN (11:15)
[2021-07-06 11:18] VITALS: BP 173/107
[2021-07-06] MEDS ORDERED: DiphenhydrAMINE HCL 50 MG/ML VIAL IVP ONE (11:45)
[2021-07-06] MEDS ORDERED: METOCLOPRAMIDE HCL 5 MG/ML 2 ML VIAL IVP ONE (11:45)
[2021-07-06] MEDS ORDERED: HEPARIN SODIUM,PORCINE 5,000 UNITS/ML VIAL SQ SCH (21:00)
[2021-07-06] MEDS ORDERED: DOCUSATE SODIUM 100 MG CAPSULE PO SCH (21:00)
[2021-07-07] MEDS ORDERED: FAMOTIDINE 20 MG TABLET PO SCH (09:00)
== END 2021-07-06 12:40 | disposition short-term general hospital (02) ==
LOC: EMS 06:48
DX: N83.202 Unspecified ovarian cyst, left side (principal); I10 Essential (primary) hypertension; Z88.5 Allergy status to narcotic agent; Z88.8 Allergy status to other drugs, medicaments and biological substances; Z91.012 Allergy to eggs; Z91.013 Allergy to seafood; Z79.899 Other long term (current) drug therapy; Z20.822 Contact with and (suspected) exposure to COVID-19
CPT/HCPCS: 74176; 76830; 76856; 80053; 82962; 83690; 84702; 85025; 87426; 96374; 96375; 96376; 99285; J0360; J1200; J2270 ×2; J2405; J2765

== ENCOUNTER 2021-07-22 09:11 | Inpatient (IN) | payer OTHER ==
[~2021-07-22] VITALS: Ht 167.6 cm; Wt 81.2 kg
[2021-07-22 09:46] LABS: BASOPHILS % (AUTO) 0.7 % (0.0-2.0); EOSINOPHILS % (AUTO) 2.5 % (1.0-6.0); HEMATOCRIT 29.9 % (36-46); HEMOGLOBIN 9.8 g/dL (12.0-16.0); LYMPHOCYTES # (AUTO) 0.5 K/uL (1.0-4.8); LYMPHOCYTES % (AUTO) 9.1 % (22.0-44.0); MEAN CORPUSCULAR HEMOGLOBIN 28.6 pg (26.0-34.0); MEAN CORPUSCULAR HGB CONC 32.7 G/dL (31.0-37.0); MEAN CORPUSCULAR VOLUME 88 fL (80-100); MONOCYTES # (AUTO) 0.4 K/uL (0.1-1.0); MONOCYTES % (AUTO) 7.5 % (2.0-9.0); NEUTROPHILS # (AUTO) 4.7 K/uL (1.8-7.7); NEUTROPHILS % (AUTO) 80.2 % (40.0-70.0); PLATELET COUNT (AUTO) 209 K/uL (150-450); RED BLOOD CELL COUNT(AUTO) 3.41 MIL/uL (4.00-5.20); RED CELL DISTRIBUTION WIDTH 19.1 % (11.5-14.5)
[2021-07-22 09:54] LABS: CALCIUM, TOTAL 9.1 mg/dL (8.8-10.5); CREATININE 10.63 mg/dL (0.60-1.30); POTASSIUM 5.4 mmol/L (3.5-5.1)
[2021-07-22 10:00] LABS: PROTHROMBIN TIME 10.8 SEC (9.4-11.6)
[2021-07-22] MEDS ORDERED: PANTOPRAZOLE SODIUM 40 MG/VIAL IVP ONE (10:00)
[2021-07-22 10:13] LABS: ALBUMIN 3.6 g/dL (3.4-5.0); BILIRUBIN,TOTAL 0.6 mg/dL (0.1-1.0); TOTAL PROTEIN, SERUM 7.9 g/dL (6.4-8.2)
[2021-07-22] MEDS ORDERED: ONDANSETRON HCL 4 MG/2 ML VIAL IVP ONE (10:30)
[2021-07-22] MEDS ORDERED: MORPHINE SULFATE 4 MG/ML SYRINGE IVP ONE (10:30)
[2021-07-22] MEDS ORDERED: CARVEDILOL 3.125 MG TABLET PO ONE (13:21)
[2021-07-22] MEDS ORDERED: MAGNESIUM HYDROXIDE SUSPENSION 30 ML UDCUP PO PRN (13:30)
[2021-07-22] MEDS ORDERED: NIFEdipine 90 MG ER TABLET PO ONE (13:30)
[2021-07-22] MEDS ORDERED: ONDANSETRON HCL 4 MG/2 ML VIAL IVP PRN ×2 (13:30→22:30)
[2021-07-22] MEDS ORDERED: CARVEDILOL 6.25 MG TABLET PO SCH (13:30)
[2021-07-22] MEDS ORDERED: ZOLPIDEM TARTRATE 5 MG TABLET PO PRN (13:30)
[2021-07-22] MEDS ORDERED: BISACODYL 10 MG RECTAL RECTAL SUPPOSITORY PR PRN (13:30)
[2021-07-22] MEDS ORDERED: ACETAMINOPHEN 325 MG TABLET PO PRN (13:30)
[2021-07-22] MEDS: HEPARIN SODIUM,PORCINE 5,000 UNITS/ML VIAL SQ SCH (16:00)
[2021-07-22] MEDS: HydrALAZINE HCL 25 MG TABLET PO SCH ×2 (16:00→21:00)
[2021-07-22] MEDS ORDERED: METOCLOPRAMIDE HCL 5 MG TABLET PO SCH (17:00)
[2021-07-22] MEDS: CALCIUM ACETATE 667 MG CAPSULE PO SCH (17:24)
[2021-07-22 20:15] LABS: COVID AG,FIA SOURCE NASOPHARYNGEAL
[2021-07-22] MEDS ORDERED: MORPHINE SULFATE 2 MG/ML SYRINGE IVP ONE (20:45)
[2021-07-22] MEDS: DOCUSATE SODIUM 100 MG CAPSULE PO SCH (21:00)
[2021-07-22] MEDS ORDERED: CARVEDILOL 3.125 MG TABLET PO SCH (21:00)
[2021-07-22] MEDS: PANTOPRAZOLE SODIUM 40 MG/VIAL IVP SCH (21:47)
[2021-07-22] MEDS ORDERED: MORPHINE SULFATE 2 MG/ML SYRINGE IVP PRN (22:30)
[2021-07-22 23:45] VITALS: BP 133/81
[2021-07-23] VITALS (11 sets, daily range): BP systolic 132–158; BP diastolic 77–95
[2021-07-23] MEDS: HEPARIN SODIUM,PORCINE 5,000 UNITS/ML VIAL SQ SCH ×3 (00:03→15:17)
[2021-07-23 00:36] LABS: CREATININE 9.36 mg/dL (0.60-1.30)
[2021-07-23 06:58] LABS: BASOPHILS % (AUTO) 0.7 % (0.0-2.0); EOSINOPHILS % (AUTO) 2.2 % (1.0-6.0); HEMATOCRIT 28.2 % (36-46); HEMOGLOBIN 9.4 g/dL (12.0-16.0); LYMPHOCYTES # (AUTO) 0.5 K/uL (1.0-4.8); LYMPHOCYTES % (AUTO) 8.2 % (22.0-44.0); MEAN CORPUSCULAR HEMOGLOBIN 28.6 pg (26.0-34.0); MEAN CORPUSCULAR HGB CONC 33.2 G/dL (31.0-37.0); MEAN CORPUSCULAR VOLUME 86 fL (80-100); MONOCYTES # (AUTO) 0.4 K/uL (0.1-1.0); NEUTROPHILS # (AUTO) 4.6 K/uL (1.8-7.7); NEUTROPHILS % (AUTO) 81.9 % (40.0-70.0); PLATELET COUNT (AUTO) 192 K/uL (150-450); RED BLOOD CELL COUNT(AUTO) 3.27 MIL/uL (4.00-5.20); RED CELL DISTRIBUTION WIDTH 18.2 % (11.5-14.5)
[2021-07-23] MEDS: HydrALAZINE HCL 20 MG/ML VIAL IVP PRN ×2 (07:14→08:39)
[2021-07-23] MEDS: METOCLOPRAMIDE HCL 10 MG TABLET PO SCH ×3 (07:15→16:41)
[2021-07-23 07:27] LABS: CALCIUM, TOTAL 8.7 mg/dL (8.8-10.5); CREATININE 5.91 mg/dL (0.60-1.30); POTASSIUM 4.4 mmol/L (3.5-5.1)
[2021-07-23] MEDS: CALCIUM ACETATE 667 MG CAPSULE PO SCH ×3 (08:28→16:42)
[2021-07-23] MEDS: VITAMIN B COMP/VIT C/FOLIC ACID CAPSULE PO SCH (08:29)
[2021-07-23] MEDS: CARVEDILOL 6.25 MG TABLET PO SCH ×2 (08:29→22:11)
[2021-07-23] MEDS: NIFEdipine 90 MG ER TABLET PO SCH (08:30)
[2021-07-23] MEDS: DOCUSATE SODIUM 100 MG CAPSULE PO SCH ×2 (08:39→22:11)
[2021-07-23] MEDS: PANTOPRAZOLE SODIUM 40 MG/VIAL IVP SCH ×2 (08:39→22:11)
[2021-07-23] MEDS: LOSARTAN POTASSIUM 50 MG TABLET PO SCH (08:39)
[2021-07-23] MEDS: HydrALAZINE HCL 25 MG TABLET PO SCH ×4 (08:45→22:11)
[2021-07-23] MEDS ORDERED: PANTOPRAZOLE SODIUM 40 MG DR TABLET PO SCH (09:00)
[2021-07-23] MEDS: MORPHINE SULFATE 2 MG/ML SYRINGE IVP PRN (09:56)
[2021-07-23] MEDS ORDERED: EPOETIN ALFA 10,000 UNITS/ML 2 ML VIAL SQ ONE (10:30)
[2021-07-24] VITALS (16 sets, daily range): BP systolic 109–177; BP diastolic 86–114
[2021-07-24] MEDS: DOCUSATE SODIUM 100 MG CAPSULE PO SCH ×2 (08:18→22:06)
[2021-07-24] MEDS: LOSARTAN POTASSIUM 50 MG TABLET PO SCH (08:18)
[2021-07-24] MEDS: VITAMIN B COMP/VIT C/FOLIC ACID CAPSULE PO SCH (08:19)
[2021-07-24] MEDS: CALCIUM ACETATE 667 MG CAPSULE PO SCH (08:19)
[2021-07-24] MEDS: CARVEDILOL 6.25 MG TABLET PO SCH ×2 (08:19→22:06)
[2021-07-24] MEDS: METOCLOPRAMIDE HCL 5 MG TABLET PO SCH ×3 (08:20→17:30)
[2021-07-24] MEDS: PANTOPRAZOLE SODIUM 40 MG/VIAL IVP SCH ×2 (08:22→22:05)
[2021-07-24] MEDS: HEPARIN SODIUM,PORCINE 5,000 UNITS/ML VIAL SQ SCH ×4 (08:23→23:43)
[2021-07-24] MEDS: NIFEdipine 90 MG ER TABLET PO SCH (08:26)
[2021-07-24] MEDS: MORPHINE SULFATE 2 MG/ML SYRINGE IVP PRN (08:33)
[2021-07-24] MEDS: HydrALAZINE HCL 25 MG TABLET PO SCH ×4 (10:55→22:06)
[2021-07-24] MEDS ORDERED: MORPHINE SULFATE 2 MG/ML SYRINGE IVP ONE (16:00)
[2021-07-24] MEDS ORDERED: SODIUM CHLORIDE 0.9% 1,000 ML ONE (16:16)
[2021-07-24] MEDS ORDERED: PANT-31 PO (19:08)
[2021-07-25 00:03] VITALS: BP 150/92
[2021-07-25 04:31] VITALS: BP 156/92
[2021-07-25] MEDS: METOCLOPRAMIDE HCL 5 MG TABLET PO SCH ×2 (06:39→10:15)
[2021-07-25 07:35] VITALS: BP 185/115
[2021-07-25] MEDS: NIFEdipine 90 MG ER TABLET PO SCH (08:03)
[2021-07-25] MEDS: DOCUSATE SODIUM 100 MG CAPSULE PO SCH (08:03)
[2021-07-25] MEDS: LOSARTAN POTASSIUM 50 MG TABLET PO SCH (08:03)
[2021-07-25] MEDS: CARVEDILOL 6.25 MG TABLET PO SCH (08:03)
[2021-07-25] MEDS: VITAMIN B COMP/VIT C/FOLIC ACID CAPSULE PO SCH (08:03)
[2021-07-25] MEDS: HydrALAZINE HCL 25 MG TABLET PO SCH ×2 (08:03→14:00)
[2021-07-25] MEDS: PANTOPRAZOLE SODIUM 40 MG/VIAL IVP SCH (08:04)
[2021-07-25] MEDS: HEPARIN SODIUM,PORCINE 5,000 UNITS/ML VIAL SQ SCH (08:04)
[2021-07-25] MEDS ORDERED: HYDR25TA84 PO (10:43)
[2021-07-25] MEDS ORDERED: LOSA-382 PO (10:43)
[2021-07-25] MEDS ORDERED: NIFE90TA63 PO (10:43)
[2021-07-25] MEDS ORDERED: CARV6 PO (10:43)
[2021-07-25 12:02] VITALS: BP 151/96
[2021-07-26] MEDS ORDERED: EPOETIN ALFA 10,000 UNITS/ML 2 ML VIAL SQ SCH (09:00)
== END 2021-07-25 14:30 | disposition home or self-care (01) | DRG 241 ==
LOC: EMS 09:13 → 5S 07-23 21:22
PROVIDERS: ADMIT Internal Medicine; ATTEND Internal Medicine
PROC: 5A1D70Z Performance of Urinary Filtration, Intermittent, Less than 6 Hours Per Day (ICD-10-PCS; 2021-07-23)
PROC: 0DB78ZX Excision of Stomach, Pylorus, Via Natural or Artificial Opening Endoscopic, Diagnostic (ICD-10-PCS; 2021-07-24)
PROC: 5A1D70Z Performance of Urinary Filtration, Intermittent, Less than 6 Hours Per Day (ICD-10-PCS; 2021-07-24)
PROC: 0DB68ZX Excision of Stomach, Via Natural or Artificial Opening Endoscopic, Diagnostic (ICD-10-PCS; principal; 2021-07-24 14:30)
DX: K29.71 Gastritis, unspecified, with bleeding (principal); I13.2 Hypertensive heart and chronic kidney disease with heart failure and with stage 5 chronic kidney disease, or end stage renal disease; K20.91 Esophagitis, unspecified with bleeding; N18.6 End stage renal disease; D63.1 Anemia in chronic kidney disease; I16.0 Hypertensive urgency; I50.30 Unspecified diastolic (congestive) heart failure; K29.81 Duodenitis with bleeding; E87.5 Hyperkalemia; E78.5 Hyperlipidemia, unspecified; Z20.822 Contact with and (suspected) exposure to COVID-19; G43.909 Migraine, unspecified, not intractable, without status migrainosus; K44.9 Diaphragmatic hernia without obstruction or gangrene; Z99.2 Dependence on renal dialysis; Z85.05 Personal history of malignant neoplasm of liver
CPT/HCPCS: 71045; 80048; 80053; 82550; 82565; 83880; 84484; 84520; 85025; 85610; 85730; 87081; 87340; 88305; 90935; 93005; 99285; C9113; G0378; J0360; J0885; J1644; J2270; J2405; J7030; 36415-L1; 36415-TC

== ENCOUNTER 2021-10-01 17:34 | Inpatient (IN) | payer OTHER ==
[~2021-10-01] VITALS: Ht 160 cm; Wt 83.6 kg
[~2021-10-01 17:34] MED LIST changes: +CARV12 PO; -CARV6 PO; +LOSA-382 PO; -LOSA50TA2 PO
[2021-10-01] MEDS ORDERED: ONDANSETRON HCL 4 MG/2 ML VIAL IVP ONE (18:15)
[2021-10-01] MEDS ORDERED: MORPHINE SULFATE 2 MG/ML SYRINGE IVP ONE ×2 (18:15→20:45)
[2021-10-01] MEDS ORDERED: MAG HYDROX/AL HYDROX/SIMETH 30 ML SUSP UDCUP PO ONE (18:15)
[2021-10-01] MEDS ORDERED: FAMOTIDINE 10 MG/ML 2 ML VIAL IVP ONE (18:15)
[2021-10-01 18:38] LABS: BASOPHILS % (AUTO) 0.9 % (0.0-2.0); EOSINOPHILS % (AUTO) 2.9 % (1.0-6.0); HEMATOCRIT 31.2 % (36-46); HEMOGLOBIN 10.2 g/dL (12.0-16.0); LYMPHOCYTES # (AUTO) 0.8 K/uL (1.0-4.8); LYMPHOCYTES % (AUTO) 12.7 % (22.0-44.0); MEAN CORPUSCULAR HEMOGLOBIN 28.2 pg (26.0-34.0); MEAN CORPUSCULAR HGB CONC 32.8 G/dL (31.0-37.0); MEAN CORPUSCULAR VOLUME 86 fL (80-100); MONOCYTES # (AUTO) 0.4 K/uL (0.1-1.0); MONOCYTES % (AUTO) 6.6 % (2.0-9.0); NEUTROPHILS # (AUTO) 4.9 K/uL (1.8-7.7); NEUTROPHILS % (AUTO) 76.9 % (40.0-70.0); PLATELET COUNT (AUTO) 192 K/uL (150-450); RED BLOOD CELL COUNT(AUTO) 3.63 MIL/uL (4.00-5.20); RED CELL DISTRIBUTION WIDTH 18.1 % (11.5-14.5)
[2021-10-01 18:50] LABS: CARBON DIOXIDE 26 mmol/L (22-29); CHLORIDE 97 mmol/L (98-107); POTASSIUM 4.6 mmol/L (3.5-5.1); SODIUM SERUM 135 mmol/L (136-145)
[2021-10-01 18:51] LABS: ANION GAP 12 mmol/L (8-16); CALCIUM, TOTAL 9.1 mg/dL (8.8-10.5); GLOMERULAR FILTR. RATE CALC 4 mL/min (>60); GLUCOSE,RANDOM 88 mg/dL (70-110); UREA NITROGEN, BLOOD 73 mg/dL (7-18)
[2021-10-01 18:56] LABS: B-TYPE NATRIURETIC PEPTIDE 2260 pg/mL (0-100)
[2021-10-01 19:15] LABS: ALANINE AMINOTRANSFERASE 24 U/L (12-78); ALBUMIN 3.7 g/dL (3.4-5.0); ALKALINE PHOSPHATASE 74 U/L (46-116); ASPARTATE AMINOTRANSFERASE 25 U/L (15-37); BILIRUBIN,TOTAL 0.6 mg/dL (0.1-1.0); CREATINE KINASE, TOTAL ONLY 57 U/L (26-192); HCG,QUANTITATIVE < 1 mIU/mL (0-6); LIPASE 177 U/L (73-393); TOTAL PROTEIN, SERUM 7.6 g/dL (6.4-8.2)
[2021-10-01] MEDS ORDERED: AZITHROMYCIN 500 MG/NS 250 ML IV ONE (19:15)
[2021-10-01] MEDS ORDERED: VANCOMYCIN HCL 1.25 GM in DEXTROSE 5%-WATER 250 ML IV ONE (19:15)
[2021-10-01] MEDS ORDERED: HydrALAZINE HCL 20 MG/ML VIAL IVP ONE ×2 (19:15→20:15)
[2021-10-01] MEDS ORDERED: PIPERACILLIN/TAZO 3.375 GM/D5W 50 ML IV ONE (19:15)
[2021-10-01] MEDS ORDERED: LABETALOL HCL 5 MG/ML 20 ML VIAL IVP ONE (19:15)
[2021-10-01] MEDS ORDERED: MORPHINE SULFATE 4 MG/ML SYRINGE IVP ONE (19:15)
[2021-10-01] MEDS ORDERED: SODIUM CHLORIDE 0.9% 100 ML ONE (19:25)
[2021-10-01] MEDS ORDERED: IOHEXOL 350 MG/ML 100 ML VIAL ONE (19:25)
[2021-10-01 20:19] LABS: COVID AG,FIA SOURCE NASOPHARYNGEAL
[2021-10-01] MEDS ORDERED: ONDANSETRON HCL 4 MG/2 ML VIAL IVP PRN (22:30)
[2021-10-01] MEDS ORDERED: CloNIDine HCL 0.1 MG TABLET PO PRN (22:30)
[2021-10-01] MEDS ORDERED: ZOLPIDEM TARTRATE 5 MG TABLET PO PRN (22:30)
[2021-10-01] MEDS ORDERED: ACETAMINOPHEN 325 MG TABLET PO PRN (22:30)
[2021-10-01] MEDS: NIFEdipine 90 MG ER TABLET PO SCH (22:43)
[2021-10-01] MEDS: LOSARTAN POTASSIUM 50 MG TABLET PO SCH (22:44)
[2021-10-01] MEDS: HYDROmorphone 2 MG/ML VIAL IVP PRN (22:45)
[2021-10-01 23:50] VITALS: BP 186/128
[2021-10-02] VITALS (13 sets, daily range): BP systolic 116–149; BP diastolic 65–100
[2021-10-02] MEDS ORDERED: SODIUM CHLORIDE 0.9% 1,000 ML ONE (00:45)
[2021-10-02] MEDS: HYDROmorphone 2 MG/ML VIAL IVP PRN ×3 (06:16→20:30)
[2021-10-02] MEDS: HEPARIN SODIUM,PORCINE 5,000 UNITS/ML VIAL SQ SCH ×2 (08:18→20:26)
[2021-10-02] MEDS: FAMOTIDINE 20 MG TABLET PO SCH (08:18)
[2021-10-02] MEDS: LOSARTAN POTASSIUM 50 MG TABLET PO SCH ×2 (08:18→20:25)
[2021-10-02] MEDS: DOCUSATE SODIUM 100 MG CAPSULE PO SCH ×2 (08:19→20:26)
[2021-10-02] MEDS: VITAMIN B COMP/VIT C/FOLIC ACID CAPSULE PO SCH (17:13)
[2021-10-02] MEDS: METOCLOPRAMIDE HCL 5 MG TABLET PO SCH ×2 (17:14→20:25)
[2021-10-02] MEDS: NIFEdipine 90 MG ER TABLET PO SCH (20:25)
[2021-10-03] VITALS (12 sets, daily range): BP systolic 138–150; BP diastolic 78–100
[2021-10-03] MEDS: HYDROmorphone 2 MG/ML VIAL IVP PRN ×2 (05:24→11:41)
[2021-10-03] MEDS: METOCLOPRAMIDE HCL 5 MG TABLET PO SCH ×3 (06:21→17:51)
[2021-10-03] MEDS: HEPARIN SODIUM,PORCINE 5,000 UNITS/ML VIAL SQ SCH (11:41)
[2021-10-03] MEDS: FAMOTIDINE 20 MG TABLET PO SCH (11:41)
[2021-10-03] MEDS: VITAMIN B COMP/VIT C/FOLIC ACID CAPSULE PO SCH (11:41)
[2021-10-03] MEDS: DOCUSATE SODIUM 100 MG CAPSULE PO SCH (11:41)
[2021-10-03] MEDS: LOSARTAN POTASSIUM 50 MG TABLET PO SCH (11:41)
== END 2021-10-03 19:20 | disposition home or self-care (01) | DRG 199 ==
LOC: EMS 17:41 → 5N 22:00 → UNDOADMIN 22:56 → 5N 22:56 → UNDODISIN 10-03 19:20
PROVIDERS: ADMIT Internal Medicine; ATTEND Internal Medicine
PROC: 5A1D70Z Performance of Urinary Filtration, Intermittent, Less than 6 Hours Per Day (ICD-10-PCS; principal; 2021-10-01)
PROC: 5A1D70Z Performance of Urinary Filtration, Intermittent, Less than 6 Hours Per Day (ICD-10-PCS; 2021-10-03)
DX: I16.1 Hypertensive emergency (principal); D63.8 Anemia in other chronic diseases classified elsewhere; N18.6 End stage renal disease; I12.0 Hypertensive chronic kidney disease with stage 5 chronic kidney disease or end stage renal disease; G89.29 Other chronic pain; K31.84 Gastroparesis; J98.11 Atelectasis; Z20.822 Contact with and (suspected) exposure to COVID-19; Z99.2 Dependence on renal dialysis; Z86.73 Personal history of transient ischemic attack (TIA), and cerebral infarction without residual deficits; Z85.05 Personal history of malignant neoplasm of liver; Z91.19 Patient's noncompliance with other medical treatment and regimen; Z90.49 Acquired absence of other specified parts of digestive tract
CPT/HCPCS: 71045; 74177; 76856; 80053; 82550; 83690; 83880; 84484; 84702; 85025; 87081; 87340; 90935; 93005; 99291; J0360; J0456; J1170; J1644; J2270; J2405; J2543; J3370; J3490; J7030; J7050; J7060; Q9967; 36415-L1; 36415-TC

== ENCOUNTER 2021-11-04 10:10 | Inpatient (IN) | payer OTHER ==
[~2021-11-04] VITALS: Ht 167.6 cm; Wt 79.1 kg
[2021-11-04] VITALS (9 sets, daily range): BP systolic 193–235; BP diastolic 107–144
[~2021-11-04 10:10] MED LIST changes: +SEVE800T17 PO
[2021-11-04] MEDS ORDERED: ONDANSETRON HCL 4 MG/2 ML VIAL IVP ONE (10:45)
[2021-11-04] MEDS ORDERED: HydrALAZINE HCL 20 MG/ML VIAL IVP ONE ×3 (10:45→14:15)
[2021-11-04] MEDS ORDERED: MORPHINE SULFATE 2 MG/ML SYRINGE IVP ONE (10:45)
[2021-11-04] MEDS ORDERED: FAMOTIDINE 10 MG/ML 2 ML VIAL IVP ONE (10:45)
[2021-11-04 10:50] LABS: BASOPHILS % (AUTO) 0.6 % (0.0-2.0); EOSINOPHILS % (AUTO) 0.6 % (1.0-6.0); HEMATOCRIT 29.6 % (36-46); HEMOGLOBIN 9.7 g/dL (12.0-16.0); LYMPHOCYTES # (AUTO) 0.7 K/uL (1.0-4.8); MEAN CORPUSCULAR HEMOGLOBIN 28.1 pg (26.0-34.0); MEAN CORPUSCULAR HGB CONC 32.7 G/dL (31.0-37.0); MEAN CORPUSCULAR VOLUME 86 fL (80-100); MONOCYTES # (AUTO) 0.5 K/uL (0.1-1.0); MONOCYTES % (AUTO) 7.3 % (2.0-9.0); NEUTROPHILS # (AUTO) 5.4 K/uL (1.8-7.7); NEUTROPHILS % (AUTO) 81.5 % (40.0-70.0); PLATELET COUNT (AUTO) 172 K/uL (150-450); RED BLOOD CELL COUNT(AUTO) 3.45 MIL/uL (4.00-5.20); RED CELL DISTRIBUTION WIDTH 17.8 % (11.5-14.5)
[2021-11-04 11:03] LABS: INR 1.1 (0.9-1.1); PROTHROMBIN TIME 11.2 SEC (9.4-11.6)
[2021-11-04 11:04] LABS: ANION GAP 17 mmol/L (8-16); CALCIUM, TOTAL 9.4 mg/dL (8.8-10.5); CARBON DIOXIDE 21 mmol/L (22-29); CHLORIDE 99 mmol/L (98-107); CREATININE 12.36 mg/dL (0.60-1.30); GLOMERULAR FILTR. RATE CALC 4 mL/min (>60); GLUCOSE,RANDOM 97 mg/dL (70-110); POTASSIUM 5.3 mmol/L (3.5-5.1); SODIUM SERUM 137 mmol/L (136-145); UREA NITROGEN, BLOOD 73 mg/dL (7-18)
[2021-11-04 11:10] LABS: ALANINE AMINOTRANSFERASE 29 U/L (12-78); ALBUMIN 3.6 g/dL (3.4-5.0); ALKALINE PHOSPHATASE 71 U/L (46-116); ASPARTATE AMINOTRANSFERASE 27 U/L (15-37); BILIRUBIN,TOTAL 0.6 mg/dL (0.1-1.0); CREATINE KINASE, TOTAL ONLY 33 U/L (26-192); LIPASE 111 U/L (73-393); TOTAL PROTEIN, SERUM 7.5 g/dL (6.4-8.2)
[2021-11-04 11:13] LABS: B-TYPE NATRIURETIC PEPTIDE 3790 pg/mL (0-100)
[2021-11-04 11:15] LABS: COVID AG,FIA SOURCE NASOPHARYNGEAL
[2021-11-04 11:29] LABS: HCG,QUANTITATIVE < 1 mIU/mL (0-6)
[2021-11-04] MEDS ORDERED: ACETAMINOPHEN 1000 MG/ISO-OSM 100 ML IV ONE (13:15)
[2021-11-04] MEDS ORDERED: MORPHINE SULFATE 4 MG/ML SYRINGE IVP ONE (13:15)
[2021-11-04] MEDS ORDERED: ZOLPIDEM TARTRATE 5 MG TABLET PO PRN (16:00)
[2021-11-04] MEDS ORDERED: ACETAMINOPHEN 325 MG TABLET PO PRN (16:00)
[2021-11-04] MEDS: AmLODIPine BESYLATE 10 MG TABLET PO SCH (16:06)
[2021-11-04] MEDS: ONDANSETRON HCL 4 MG/2 ML VIAL IVP PRN (16:13)
[2021-11-04] MEDS ORDERED: SODIUM CHLORIDE 0.9% 2,000 ML ONE (18:06)
[2021-11-04] MEDS: CARVEDILOL 12.5 MG TABLET PO SCH (18:09)
[2021-11-04] MEDS: LOSARTAN POTASSIUM 50 MG TABLET PO SCH ×2 (18:10→20:01)
[2021-11-04] MEDS: HEPARIN SODIUM,PORCINE 5,000 UNITS/ML VIAL SQ SCH (20:01)
[2021-11-04] MEDS: DOCUSATE SODIUM 100 MG CAPSULE PO SCH (20:01)
[2021-11-04] MEDS: HydrALAZINE HCL 20 MG/ML VIAL IVP PRN (20:10)
[2021-11-04] MEDS ORDERED: LOSARTAN POTASSIUM 50 MG TABLET PO SCH (21:00)
[2021-11-04] MEDS ORDERED: CARVEDILOL 12.5 MG TABLET PO SCH (21:00)
[2021-11-04] MEDS: MORPHINE SULFATE 2 MG/ML SYRINGE IVP PRN (23:59)
[2021-11-05] VITALS (21 sets, daily range): BP systolic 124–208; BP diastolic 57–126
[2021-11-05] MEDS: ONDANSETRON HCL 4 MG/2 ML VIAL IVP PRN ×2 (00:03→23:04)
[2021-11-05] MEDS ORDERED: LABETALOL HCL 5 MG/ML 20 ML VIAL IVP ONE (00:45)
[2021-11-05] MEDS: HydrALAZINE HCL 20 MG/ML VIAL IVP PRN ×2 (03:58→18:59)
[2021-11-05] MEDS: MORPHINE SULFATE 2 MG/ML SYRINGE IVP PRN ×4 (03:58→23:04)
[2021-11-05] MEDS: CARVEDILOL 12.5 MG TABLET PO SCH ×2 (09:00→21:36)
[2021-11-05] MEDS: LOSARTAN POTASSIUM 50 MG TABLET PO SCH ×2 (09:00→21:36)
[2021-11-05] MEDS: DOCUSATE SODIUM 100 MG CAPSULE PO SCH ×2 (09:00→21:36)
[2021-11-05] MEDS: AmLODIPine BESYLATE 10 MG TABLET PO SCH (09:00)
[2021-11-05] MEDS: HEPARIN SODIUM,PORCINE 5,000 UNITS/ML VIAL SQ SCH ×2 (09:21→21:36)
[2021-11-05] MEDS: FAMOTIDINE 20 MG TABLET PO SCH (09:26)
[2021-11-05] MEDS ORDERED: AmLODIPine BESYLATE 10 MG TABLET PO SCH ×2 (21:00)
[2021-11-05] MEDS ORDERED: METOPROLOL TARTRATE 50 MG TABLET PO SCH ×2 (21:00)
[2021-11-05] MEDS: NITROGLYCERIN 2% (1 GM=INCH) PACKET TP SCH (23:04)
[2021-11-05] MEDS ORDERED: HydrALAZINE HCL 20 MG/ML VIAL IVP PRN (23:45)
[2021-11-06] MEDS: NITROGLYCERIN 2% (1 GM=INCH) PACKET TP SCH ×2 (05:22→11:50)
[2021-11-06 05:50] VITALS: BP 139/93
[2021-11-06 07:47] VITALS: BP 169/112
[2021-11-06] MEDS: DOCUSATE SODIUM 100 MG CAPSULE PO SCH (09:00)
[2021-11-06] MEDS: MORPHINE SULFATE 2 MG/ML SYRINGE IVP PRN ×2 (09:20→13:32)
[2021-11-06] MEDS: ONDANSETRON HCL 4 MG/2 ML VIAL IVP PRN (09:20)
[2021-11-06] MEDS: LOSARTAN POTASSIUM 50 MG TABLET PO SCH (09:22)
[2021-11-06] MEDS: FAMOTIDINE 20 MG TABLET PO SCH (09:22)
[2021-11-06] MEDS: AmLODIPine BESYLATE 10 MG TABLET PO SCH (09:22)
[2021-11-06] MEDS: CARVEDILOL 12.5 MG TABLET PO SCH (09:22)
[2021-11-06] MEDS: HEPARIN SODIUM,PORCINE 5,000 UNITS/ML VIAL SQ SCH (09:22)
[2021-11-06 11:30] VITALS: BP 154/81
[2021-11-06] MEDS ORDERED: PHOSLOC PO (12:53)
[2021-11-06] MEDS ORDERED: HYDR25TA84 PO (12:53)
[2021-11-06] MEDS ORDERED: CARV12 PO (12:53)
[2021-11-06] MEDS ORDERED: NIFE90TA63 PO (12:53)
[2021-11-06] MEDS ORDERED: METO5TAB2 PO (12:53)
[2021-11-06] MEDS ORDERED: LOSA-382 PO (12:53)
[2021-11-06] MEDS ORDERED: METOCLOPRAMIDE HCL 5 MG TABLET PO SCH (16:00)
[2021-11-08] MEDS ORDERED: EPOETIN ALFA 10,000 UNITS/ML VIAL SQ SCH (09:00)
== END 2021-11-06 14:40 | disposition home or self-care (01) | DRG 199 ==
LOC: EMS 10:10 → 5S 15:21
PROVIDERS: ADMIT Internal Medicine; ATTEND Internal Medicine
PROC: 5A1D70Z Performance of Urinary Filtration, Intermittent, Less than 6 Hours Per Day (ICD-10-PCS; principal; 2021-11-04)
PROC: 5A1D70Z Performance of Urinary Filtration, Intermittent, Less than 6 Hours Per Day (ICD-10-PCS; 2021-11-05)
DX: I16.1 Hypertensive emergency (principal); D63.1 Anemia in chronic kidney disease; N18.6 End stage renal disease; I12.0 Hypertensive chronic kidney disease with stage 5 chronic kidney disease or end stage renal disease; Z20.822 Contact with and (suspected) exposure to COVID-19; G89.29 Other chronic pain; Z85.05 Personal history of malignant neoplasm of liver; Z86.73 Personal history of transient ischemic attack (TIA), and cerebral infarction without residual deficits; E87.70 Fluid overload, unspecified; Z91.19 Patient's noncompliance with other medical treatment and regimen; Z99.2 Dependence on renal dialysis; Z92.21 Personal history of antineoplastic chemotherapy; Z91.013 Allergy to seafood; Z88.8 Allergy status to other drugs, medicaments and biological substances; Z91.15 Patient's noncompliance with renal dialysis; Z79.899 Other long term (current) drug therapy; Z90.49 Acquired absence of other specified parts of digestive tract
CPT/HCPCS: 71045; 80053; 82550; 83690; 83880; 84484; 84702; 85025; 85610; 85730; 87340; 90935; 93005; 93306; 99291; J0131; J0360; J1644; J2270; J2405; J3490; J7030

== ENCOUNTER 2021-11-25 12:34 | Inpatient (IN) | payer OTHER ==
[2021-11-25] VITALS (13 sets, daily range): BP systolic 172–224; BP diastolic 106–147
[~2021-11-25] VITALS: Ht 167.6 cm; Wt 85.3 kg
[~2021-11-25 12:34] MED LIST changes: -SEVE800T17 PO
[2021-11-25 13:58] LABS: BASOPHILS % (AUTO) 0.6 % (0.0-2.0); EOSINOPHILS % (AUTO) 0.5 % (1.0-6.0); HEMATOCRIT 34.2 % (36-46); HEMOGLOBIN 11.1 g/dL (12.0-16.0); LYMPHOCYTES # (AUTO) 0.5 K/uL (1.0-4.8); LYMPHOCYTES % (AUTO) 7.2 % (22.0-44.0); MEAN CORPUSCULAR HEMOGLOBIN 29.1 pg (26.0-34.0); MEAN CORPUSCULAR HGB CONC 32.4 G/dL (31.0-37.0); MEAN CORPUSCULAR VOLUME 90 fL (80-100); MONOCYTES # (AUTO) 0.3 K/uL (0.1-1.0); NEUTROPHILS # (AUTO) 5.7 K/uL (1.8-7.7); PLATELET COUNT (AUTO) 172 K/uL (150-450); RED BLOOD CELL COUNT(AUTO) 3.81 MIL/uL (4.00-5.20); RED CELL DISTRIBUTION WIDTH 19.6 % (11.5-14.5)
[2021-11-25] MEDS ORDERED: ONDANSETRON HCL 4 MG/2 ML VIAL IVP ONE (14:00)
[2021-11-25] MEDS ORDERED: LABETALOL HCL 5 MG/ML 20 ML VIAL IVP ONE (14:00)
[2021-11-25 14:03] LABS: NEUTROPHILS % (AUTO) 86.7 % (40.0-70.0)
[2021-11-25 14:18] LABS: PROTHROMBIN TIME 10.7 SEC (9.4-11.6)
[2021-11-25 14:23] LABS: ALBUMIN 3.7 g/dL (3.4-5.0); BILIRUBIN,TOTAL 0.5 mg/dL (0.1-1.0); CALCIUM, TOTAL 9.1 mg/dL (8.8-10.5); CREATININE 9.71 mg/dL (0.60-1.30); TOTAL PROTEIN, SERUM 7.6 g/dL (6.4-8.2)
[2021-11-25 14:24] LABS: POTASSIUM 7.2 mmol/L (3.5-5.1)
[2021-11-25] MEDS ORDERED: CALCIUM GLUCONATE 1,000 MG in DEXTROSE 5%-WATER 50 ML IV ONE (14:30)
[2021-11-25] MEDS ORDERED: INSULIN REGULAR, HUMAN 100 UNITS/ML IVP ONE (14:30)
[2021-11-25] MEDS ORDERED: DEXTROSE 50%-WATER 25 GM/50 ML SYRINGE IVP ONE (14:30)
[2021-11-25 15:01] LABS: GLUCOMETER DEV NAME(LOC) ERT.5; GLUCOSE,POINT OF CARE 87 MG/DL (70-110)
[2021-11-25 15:36] LABS: COVID AG,FIA SOURCE NASAL SWAB
[2021-11-25] MEDS ORDERED: ACETAMINOPHEN 325 MG TABLET PO PRN ×2 (16:45→22:30)
[2021-11-25] MEDS ORDERED: HydrALAZINE HCL 20 MG/ML VIAL IVP ONE (19:45)
[2021-11-25] MEDS ORDERED: ZOLPIDEM TARTRATE 5 MG TABLET PO PRN (22:30)
[2021-11-25] MEDS ORDERED: IPRATROPIUM BROMIDE 0.5 MG/2.5 ML NEB SOLUTION NEB PRN (22:30)
[2021-11-25] MEDS ORDERED: BISACODYL 10 MG RECTAL RECTAL SUPPOSITORY PR PRN (22:30)
[2021-11-25] MEDS ORDERED: ALBUTEROL SULFATE 2.5 MG/0.5 ML NEB SOLUTION NEB PRN (22:30)
[2021-11-25] MEDS ORDERED: MAGNESIUM HYDROXIDE SUSPENSION 30 ML UDCUP PO PRN (22:30)
[2021-11-25] MEDS ORDERED: ONDANSETRON HCL 4 MG/2 ML VIAL IVP PRN (22:30)
[2021-11-25] MEDS ORDERED: HydrALAZINE HCL 25 MG TABLET PO ONE (22:30)
[2021-11-26] VITALS (16 sets, daily range): BP systolic 138–210; BP diastolic 71–123
[2021-11-26] MEDS: CARVEDILOL 12.5 MG TABLET PO SCH ×2 (02:21→09:03)
[2021-11-26] MEDS: HEPARIN SODIUM,PORCINE 5,000 UNITS/ML VIAL SQ SCH ×4 (02:21→16:00)
[2021-11-26] MEDS: PANTOPRAZOLE SODIUM 40 MG DR TABLET PO SCH ×2 (02:21→08:59)
[2021-11-26] MEDS: LACTOBACILLUS ACIDOPHILUS/BULGARICUS TABLET PO SCH ×2 (02:22→08:59)
[2021-11-26] MEDS ORDERED: HydrALAZINE HCL 20 MG/ML VIAL IVP PRN (04:00)
[2021-11-26] MEDS ORDERED: AmLODIPine BESYLATE 5 MG TABLET PO ONE (05:45)
[2021-11-26] MEDS: METOCLOPRAMIDE HCL 5 MG TABLET PO SCH ×4 (07:30→17:30)
[2021-11-26] MEDS: CALCIUM ACETATE 667 MG CAPSULE PO SCH ×3 (08:59→18:58)
[2021-11-26] MEDS ORDERED: NIFEdipine 90 MG ER TABLET PO SCH (09:00)
[2021-11-26] MEDS ORDERED: LOSARTAN POTASSIUM 50 MG TABLET PO SCH (09:00)
[2021-11-26] MEDS ORDERED: VITAMIN B COMP/VIT C/FOLIC ACID CAPSULE PO SCH (09:00)
[2021-11-26] MEDS ORDERED: PANTOPRAZOLE SODIUM 40 MG/VIAL IVP SCH (09:00)
[2021-11-26] MEDS: HydrALAZINE HCL 25 MG TABLET PO SCH ×3 (09:02→16:00)
== END 2021-11-26 21:00 | disposition home or self-care (01) | DRG 425 ==
LOC: EMS 12:36 → 5S 15:29
PROVIDERS: ADMIT Hospitalist; ATTEND Hospitalist
PROC: 5A1D70Z Performance of Urinary Filtration, Intermittent, Less than 6 Hours Per Day (ICD-10-PCS; principal; 2021-11-25)
PROC: 5A1D70Z Performance of Urinary Filtration, Intermittent, Less than 6 Hours Per Day (ICD-10-PCS; 2021-11-26)
DX: E87.5 Hyperkalemia (principal); I12.0 Hypertensive chronic kidney disease with stage 5 chronic kidney disease or end stage renal disease; D63.1 Anemia in chronic kidney disease; N18.6 End stage renal disease; G89.4 Chronic pain syndrome; I16.0 Hypertensive urgency; Z85.05 Personal history of malignant neoplasm of liver; Z86.73 Personal history of transient ischemic attack (TIA), and cerebral infarction without residual deficits; Z99.2 Dependence on renal dialysis; Z91.19 Patient's noncompliance with other medical treatment and regimen; Z90.49 Acquired absence of other specified parts of digestive tract; Z92.21 Personal history of antineoplastic chemotherapy; Z88.8 Allergy status to other drugs, medicaments and biological substances; Z91.013 Allergy to seafood; Z20.822 Contact with and (suspected) exposure to COVID-19
CPT/HCPCS: 71045; 74176; 80053; 82962; 83880; 84132; 84484; 84703; 85025; 85610; 85730; 87340; 90935; 93005; 99285; C9113; J0360; J0610; J1644; J1815; J2405; J3490; J7060; 36415-L1; 36415-TC

== ENCOUNTER 2025-03-20 13:20 | Inpatient (IN) | payer OTHER ==
[~2025-03-20] VITALS: Ht 170.2 cm; Wt 79.3 kg
[~2025-03-20 13:20] MED LIST changes: -B CO1CAP6 PO; +CLON1PAT12 TP; +FOLI0.8T54 PO; +LIDOCAINE/PF 1% 2 ML VIAL ONE; -LOSA-382 PO; +MINO10 PO; -NIFE90TA63 PO; +NIFE90TA91 PO; -PANT-31 PO; +VALS320T17 PO
[2025-03-20 14:57] LABS: PLATELET COUNT (AUTO) 269 K/uL (150-450); RED BLOOD CELL COUNT(AUTO) 3.46 MIL/uL (4.00-5.20); RED CELL DISTRIBUTION WIDTH 15.5 % (11.5-14.5); WHITE BLOOD COUNT (AUTO) 7.7 K/uL (4.5-11.0)
[2025-03-20 15:02] LABS: CALCIUM, TOTAL 9.7 mg/dL (8.8-10.5); CREATININE 11.43 mg/dL (0.60-1.30); GLOMERULAR FILTR. RATE CALC 4.0 mL/min (>60); GLUCOSE,RANDOM 100.0 mg/dL (70-110); SODIUM SERUM 136.0 mmol/L (136-145); UREA NITROGEN, BLOOD 85.0 mg/dL (7-18)
[2025-03-20 15:08] LABS: CREATINE KINASE, TOTAL ONLY 33 U/L (26-192)
[2025-03-20 15:11] LABS: TROPONIN I-HIGH SENSITIVITY 43 ng/L (<51)
[2025-03-20] MEDS ORDERED: CARV25TA32 PO (15:48)
[2025-03-20] MEDS ORDERED: NIFE-79 PO (15:48)
[2025-03-20] MEDS ORDERED: HYDR50TA37 PO (15:49)
[2025-03-20] MEDS: MORPHINE SULFATE 2 MG/ML SYRINGE IVP ONE ×2 (15:51→17:37)
[2025-03-20] MEDS ORDERED: AMIT-260 PO (20:18)
[2025-03-20] MEDS ORDERED: CINA60TA4 PO (20:18)
[2025-03-20] MEDS ORDERED: CARV12 PO (20:18)
[2025-03-20] MEDS ORDERED: CLON1PAT12 TD (20:18)
[2025-03-20] MEDS ORDERED: GABA-1216 PO (20:18)
[2025-03-20] MEDS ORDERED: CARV12.530 PO (21:04)
[2025-03-20] MEDS ORDERED: CINA60TA PO (21:05)
[2025-03-20] MEDS ORDERED: NIFE90TA72 PO (21:05)
[2025-03-20 22:40] VITALS: BP 157/100; PULSE 88; RESP 18; TEMP 98.8; O2SAT 96
[2025-03-20 22:50] VITALS: BP 172/111; PULSE 94; RESP 18
[2025-03-20] MEDS: LIDOCAINE/PF 1% 2 ML VIAL ID PRN (22:55)
[2025-03-20 23:00] VITALS: BP 171/107; PULSE 92; RESP 18; TEMP 97.7; O2SAT 98
[2025-03-20 23:30] VITALS: BP 174/107; PULSE 81
[2025-03-20 23:58] VITALS: BP 168/109; PULSE 80; RESP 18
[2025-03-21] VITALS (12 sets, daily range): BP systolic 149–177; BP diastolic 93–112; PULSE 63–99; RESP 17–18; TEMP 98–98.8; O2SAT 98
[2025-03-21] MEDS ORDERED: ZOLPIDEM TARTRATE 5 MG TABLET PO PRN (00:15)
[2025-03-21] MEDS ORDERED: IPRATROPIUM BROMIDE 0.5 MG/2.5 ML NEB SOLUTION NEB PRN (00:15)
[2025-03-21] MEDS ORDERED: ALBUTEROL SULFATE 2.5 MG/0.5 ML NEB SOLUTION NEB PRN (00:15)
[2025-03-21] MEDS ORDERED: BISACODYL 10 MG RECTAL RECTAL SUPPOSITORY PR PRN (00:15)
[2025-03-21] MEDS ORDERED: MAGNESIUM HYDROXIDE SUSPENSION 30 ML UDCUP PO PRN (00:15)
[2025-03-21] MEDS: ACETAMINOPHEN 325 MG TABLET PO PRN (00:27)
[2025-03-21 06:34] LABS: PLATELET COUNT (AUTO) 228 K/uL (150-450); RED BLOOD CELL COUNT(AUTO) 3.12 MIL/uL (4.00-5.20); RED CELL DISTRIBUTION WIDTH 15.2 % (11.5-14.5); WHITE BLOOD COUNT (AUTO) 5.7 K/uL (4.5-11.0)
[2025-03-21 06:44] LABS: CALCIUM, TOTAL 8.1 mg/dL (8.8-10.5); CREATININE 5.72 mg/dL (0.60-1.30); GLOMERULAR FILTR. RATE CALC 8.0 mL/min (>60); GLUCOSE,RANDOM 79.0 mg/dL (70-110); SODIUM SERUM 143.0 mmol/L (136-145); UREA NITROGEN, BLOOD 30.0 mg/dL (7-18)
[2025-03-21] MEDS: ONDANSETRON HCL 4 MG/2 ML VIAL IVP PRN (08:55)
[2025-03-21] MEDS: HEPARIN SODIUM,PORCINE 5,000 UNITS/ML VIAL SQ SCH (08:55)
[2025-03-21] MEDS: NIFEdipine 90 MG ER TABLET PO SCH (08:56)
[2025-03-21] MEDS: FOLIC ACID/VIT B COMPLEX AND C TABLET PO SCH (08:56)
[2025-03-21] MEDS: PANTOPRAZOLE SODIUM 40 MG DR TABLET PO SCH (08:56)
[2025-03-21] MEDS: LACTOBACILLUS ACIDOPHILUS/BULGARICUS TABLET PO SCH (08:56)
[2025-03-21] MEDS: CINACALCET HCL 30 MG TABLET PO SCH (08:56)
[2025-03-21] MEDS: VALSARTAN 160 MG TABLET PO SCH (08:57)
[2025-03-21] MEDS: CloNIDine 0.1 MG/24 HOUR PATCH TD SCH (13:30)
[2025-03-21] MEDS: MORPHINE SULFATE 4 MG/ML SYRINGE IVP PRN (18:29)
[2025-03-21] MEDS: AMITRIPTYLINE HCL 50 MG TABLET PO SCH (20:48)
[2025-03-21] MEDS: GABAPENTIN 100 MG CAPSULE PO SCH (20:48)
[2025-03-22] VITALS (15 sets, daily range): BP systolic 140–187; BP diastolic 90–120; PULSE 61–88; RESP 18; TEMP 97.3–98.8; O2SAT 96–100
[2025-03-22 16:22] LABS: PLATELET COUNT (AUTO) 206 K/uL (150-450); RED BLOOD CELL COUNT(AUTO) 3.10 MIL/uL (4.00-5.20); RED CELL DISTRIBUTION WIDTH 15.4 % (11.5-14.5); WHITE BLOOD COUNT (AUTO) 4.5 K/uL (4.5-11.0)
[2025-03-22 16:29] LABS: CALCIUM, TOTAL 8.7 mg/dL (8.8-10.5); CREATININE 5.89 mg/dL (0.60-1.30); GLOMERULAR FILTR. RATE CALC 8.0 mL/min (>60); GLUCOSE,RANDOM 80.0 mg/dL (70-110); SODIUM SERUM 139.0 mmol/L (136-145); UREA NITROGEN, BLOOD 32.0 mg/dL (7-18)
[2025-03-23 00:21] VITALS: BP 172/119; PULSE 71; RESP 18; TEMP 98.6; O2SAT 98
[2025-03-23] MEDS ORDERED: SODIUM CHLORIDE 0.9% 1,000 ML ONE (03:18)
[2025-03-23 04:18] VITALS: BP 186/115; PULSE 74; RESP 18; TEMP 98.4; O2SAT 97
[2025-03-23 08:22] VITALS: BP 149/124; PULSE 86; RESP 18; TEMP 98.6; O2SAT 100
[2025-03-23] MEDS: EPOETIN ALFA 10,000 UNITS/ML VIAL SQ SCH (09:13)
[2025-03-23 11:53] VITALS: BP 136/96; PULSE 80; RESP 17; TEMP 98.8; O2SAT 95
== END 2025-03-23 13:45 | disposition home or self-care (01) | DRG 199 ==
LOC: EMS 13:50 → EDH 16:12 → 5N 22:47
PROVIDERS: ADMIT Hospitalist; ATTEND Hospitalist
PROC: 5A1D70Z Performance of Urinary Filtration, Intermittent, Less than 6 Hours Per Day (ICD-10-PCS; principal; 2025-03-20)
PROC: 5A1D70Z Performance of Urinary Filtration, Intermittent, Less than 6 Hours Per Day (ICD-10-PCS; 2025-03-22)
DX: I16.1 Hypertensive emergency (principal); K92.0 Hematemesis; N18.6 End stage renal disease; D63.1 Anemia in chronic kidney disease; N17.9 Acute kidney failure, unspecified; Z99.2 Dependence on renal dialysis; I50.9 Heart failure, unspecified; I13.2 Hypertensive heart and chronic kidney disease with heart failure and with stage 5 chronic kidney disease, or end stage renal disease; E87.5 Hyperkalemia; Z85.42 Personal history of malignant neoplasm of other parts of uterus; Z59.02 Unsheltered homelessness; Z85.43 Personal history of malignant neoplasm of ovary; Z79.899 Other long term (current) drug therapy; Z85.05 Personal history of malignant neoplasm of liver; Z86.73 Personal history of transient ischemic attack (TIA), and cerebral infarction without residual deficits; Z90.710 Acquired absence of both cervix and uterus
CPT/HCPCS: 70450; 71045; 80048; 82550; 83880; 84484; 85025; 85610; 85730; 87081; 90935; 93005; 96374; 96376; 99285; J0360; J0885; J1644; J2270; J2405; J3490; J7030; 36415-L1; 36415-TC

== ENCOUNTER 2025-04-03 00:02 | Inpatient (IN) | payer OTHER ==
[~2025-04-03] VITALS: Ht 167.6 cm; Wt 85.1 kg
[2025-04-03] VITALS (13 sets, daily range): BP systolic 173–213; BP diastolic 101–122; PULSE 60–78; RESP 18; TEMP 97.7–98.9; O2SAT 92–94
[~2025-04-03 00:02] MED LIST changes: +AMIT-260 PO; -CARV12 PO; +CARV12.530 PO; +CINA60TA PO; +CLON1PAT12 TD; -CLON1PAT12 TP; +GABA-1216 PO; -HYDR25TA84 PO; -LIDOCAINE/PF 1% 2 ML VIAL ONE; -METO5TAB2 PO; -MINO10 PO; +NIFE90TA72 PO; -NIFE90TA91 PO; -PHOSLOC PO
[2025-04-03 00:36] LABS: PLATELET COUNT (AUTO) 209 K/uL (150-450); RED BLOOD CELL COUNT(AUTO) 2.77 MIL/uL (4.00-5.20); RED CELL DISTRIBUTION WIDTH 15.2 % (11.5-14.5); WHITE BLOOD COUNT (AUTO) 6.6 K/uL (4.5-11.0)
[2025-04-03 00:44] LABS: CALCIUM, TOTAL 9.3 mg/dL (8.8-10.5); CREATININE 10.54 mg/dL (0.60-1.30); GLOMERULAR FILTR. RATE CALC 4.0 mL/min (>60); GLUCOSE,RANDOM 93.0 mg/dL (70-110); SODIUM SERUM 139.0 mmol/L (136-145); UREA NITROGEN, BLOOD 64.0 mg/dL (7-18)
[2025-04-03] MEDS: MORPHINE SULFATE 2 MG/ML SYRINGE IVP ONE (03:38)
[2025-04-03 04:16] LABS: ASPARTATE AMINOTRANSFERASE 16.0 U/L (15-37); TOTAL PROTEIN, SERUM 7.3 g/dL (6.4-8.2)
[2025-04-03] MEDS ORDERED: DEXTROSE 50%-WATER 25 GM/50 ML SYRINGE IVP PRN (05:30)
[2025-04-03] MEDS: HEPARIN SODIUM,PORCINE 5,000 UNITS/ML VIAL SQ SCH (09:24)
[2025-04-03] MEDS: DOCUSATE SODIUM 100 MG CAPSULE PO SCH (09:24)
[2025-04-03] MEDS: FAMOTIDINE 20 MG TABLET PO SCH (09:24)
[2025-04-03] MEDS: ACETAMINOPHEN 325 MG TABLET PO PRN (09:24)
[2025-04-03] MEDS ORDERED: SODIUM CHLORIDE 0.9% 1,000 ML ONE (10:58)
[2025-04-03] MEDS: HYDROCODONE/ACETAMINOPHEN 5-325 MG TABLET PO PRN (16:28)
[2025-04-03 17:15] LABS: GLUCOMETER DEV NAME(LOC) 5S.2D; GLUCOSE,POINT OF CARE 98 MG/DL (70-110)
[2025-04-03 17:35] LABS: GLUCOMETER DEV NAME(LOC) 5S.1E; GLUCOSE,POINT OF CARE 94 MG/DL (70-110)
[2025-04-03] MEDS: ONDANSETRON HCL 4 MG/2 ML VIAL IVP PRN (20:51)
[2025-04-03 21:31] LABS: GLUCOMETER DEV NAME(LOC) 5S.1E; GLUCOSE,POINT OF CARE 128 MG/DL (70-110)
[2025-04-04] VITALS (15 sets, daily range): BP systolic 164–197; BP diastolic 96–124; PULSE 73–91; RESP 17–19; TEMP 97.9–98.4; O2SAT 94–100
[2025-04-04 06:51] LABS: GLUCOMETER DEV NAME(LOC) 5S.1E; GLUCOSE,POINT OF CARE 84 MG/DL (70-110)
[2025-04-04] MEDS: MORPHINE SULFATE 4 MG/ML SYRINGE IVP PRN (08:32)
[2025-04-04 09:16] LABS: GLUCOMETER DEV NAME(LOC) 5S.1E; GLUCOSE,POINT OF CARE 93 MG/DL (70-110)
[2025-04-04] MEDS ORDERED: LIDOCAINE/PF 1% 2 ML VIAL ONE (12:00)
[2025-04-04 12:26] LABS: GLUCOMETER DEV NAME(LOC) 5S.2D; GLUCOSE,POINT OF CARE 103 MG/DL (70-110)
[2025-04-04 20:56] LABS: GLUCOMETER DEV NAME(LOC) 5S.2D; GLUCOSE,POINT OF CARE 86 MG/DL (70-110)
[2025-04-05] VITALS (7 sets, daily range): BP systolic 157–182; BP diastolic 98–116; PULSE 70–88; RESP 18–19; TEMP 98.4–99; O2SAT 95–97
[2025-04-05 08:41] LABS: GLUCOMETER DEV NAME(LOC) 5S.1E; GLUCOSE,POINT OF CARE 89 MG/DL (70-110)
[2025-04-05 08:41] LABS: GLUCOMETER DEV NAME(LOC) 5S.1E; GLUCOSE,POINT OF CARE 90 MG/DL (70-110)
[2025-04-05] MEDS: VALSARTAN 160 MG TABLET PO SCH (09:56)
[2025-04-05] MEDS: INSULIN LISPRO 100 UNITS/ML SQ PRN (11:14)
[2025-04-05 15:11] LABS: GLUCOMETER DEV NAME(LOC) 5N.1D; GLUCOSE,POINT OF CARE 151 MG/DL (70-110)
[2025-04-05] MEDS: CloNIDine 0.1 MG/24 HOUR PATCH TD SCH (18:17)
[2025-04-05] MEDS: AMITRIPTYLINE HCL 50 MG TABLET PO SCH (20:44)
[2025-04-05] MEDS: GABAPENTIN 100 MG CAPSULE PO SCH (20:44)
[2025-04-05] MEDS ORDERED: [UNRECOGNIZED DRUG - OTHER] PO SCH (21:00)
[2025-04-05] MEDS ORDERED: NIFEdipine 90 MG ER TABLET PO SCH (21:00)
[2025-04-06] VITALS (19 sets, daily range): BP systolic 136–195; BP diastolic 81–124; PULSE 62–84; RESP 17–19; TEMP 97.9–98.6; O2SAT 94–98
[2025-04-06 06:16] LABS: PLATELET COUNT (AUTO) 181 K/uL (150-450); RED BLOOD CELL COUNT(AUTO) 2.64 MIL/uL (4.00-5.20); RED CELL DISTRIBUTION WIDTH 14.9 % (11.5-14.5); WHITE BLOOD COUNT (AUTO) 3.6 K/uL (4.5-11.0)
[2025-04-06 06:40] LABS: CALCIUM, TOTAL 9.4 mg/dL (8.8-10.5); CREATININE 6.99 mg/dL (0.60-1.30); GLOMERULAR FILTR. RATE CALC 7.0 mL/min (>60); GLUCOSE,RANDOM 87.0 mg/dL (70-110); SODIUM SERUM 139.0 mmol/L (136-145); UREA NITROGEN, BLOOD 39.0 mg/dL (7-18)
[2025-04-06 06:49] LABS: PHOSPHORUS 7.0 mg/dL (2.5-4.9)
[2025-04-06] MEDS: NIFEdipine 90 MG ER TABLET PO SCH (08:54)
[2025-04-06] MEDS: FOLIC ACID/VIT B COMPLEX AND C TABLET PO SCH (08:55)
[2025-04-06] MEDS: CINACALCET HCL 30 MG TABLET PO SCH (08:55)
[2025-04-06] MEDS ORDERED: VALSARTAN 320 MG PO SCH (09:00)
[2025-04-07] VITALS (9 sets, daily range): BP systolic 155–208; BP diastolic 96–124; PULSE 81–97; RESP 16–22; TEMP 97.5–98.6; O2SAT 95–100
[2025-04-07] MEDS: PANTOPRAZOLE SODIUM 40 MG/VIAL IVP SCH (14:24)
[2025-04-07] MEDS: EPOETIN ALFA 10,000 UNITS/ML 2 ML VIAL SQ ONE (14:39)
[2025-04-08] VITALS (15 sets, daily range): BP systolic 136–219; BP diastolic 84–183; PULSE 74–97; RESP 17–18; TEMP 97.7–98.2; O2SAT 97–99
[2025-04-08] MEDS: LIDOCAINE/PF 1% 2 ML VIAL ID ONE (04:35)
[2025-04-08 04:41] LABS: PLATELET COUNT (AUTO) 179 K/uL (150-450); RED BLOOD CELL COUNT(AUTO) 2.83 MIL/uL (4.00-5.20); RED CELL DISTRIBUTION WIDTH 15.2 % (11.5-14.5); WHITE BLOOD COUNT (AUTO) 3.6 K/uL (4.5-11.0)
[2025-04-08 04:48] LABS: ASPARTATE AMINOTRANSFERASE 10.0 U/L (15-37); CALCIUM, TOTAL 9.4 mg/dL (8.8-10.5); CREATININE 6.9 mg/dL (0.60-1.30); GLOMERULAR FILTR. RATE CALC 7.0 mL/min (>60); GLUCOSE,RANDOM 89.0 mg/dL (70-110); SODIUM SERUM 136.0 mmol/L (136-145); TOTAL PROTEIN, SERUM 6.8 g/dL (6.4-8.2); UREA NITROGEN, BLOOD 38.0 mg/dL (7-18)
[2025-04-08] MEDS: VALSARTAN 160 MG TABLET PO SCH (07:44)
[2025-04-08] MEDS: CloNIDine 0.3 MG/24 HOUR PATCH TD ONE (14:29)
[2025-04-08 17:19] LABS: COVID AG,FIA SOURCE NASAL SWAB
[2025-04-08 17:40] LABS: SARS-COV2 (COVID) ANTIGEN,FIA Negative (Negative)
[2025-04-08] MEDS ORDERED: LIDOCAINE/PF 1% 2 ML VIAL ONE (17:45)
[2025-04-08] MEDS: NIFEdipine 90 MG ER TABLET PO SCH (20:47)
[2025-04-09] VITALS (7 sets, daily range): BP systolic 136–187; BP diastolic 87–105; PULSE 65–86; RESP 16–19; TEMP 97.9–98.4; O2SAT 96–100
[2025-04-09 07:05] LABS: GLUCOMETER DEV NAME(LOC) 5N.1D; GLUCOSE,POINT OF CARE 131 MG/DL (70-110)
[2025-04-09 07:25] LABS: PLATELET COUNT (AUTO) 189 K/uL (150-450); RED BLOOD CELL COUNT(AUTO) 3.17 MIL/uL (4.00-5.20); RED CELL DISTRIBUTION WIDTH 15.4 % (11.5-14.5); WHITE BLOOD COUNT (AUTO) 4.5 K/uL (4.5-11.0)
[2025-04-09 07:32] LABS: CALCIUM, TOTAL 9.6 mg/dL (8.8-10.5); CREATININE 5.37 mg/dL (0.60-1.30); GLOMERULAR FILTR. RATE CALC 9.0 mL/min (>60); GLUCOSE,RANDOM 82.0 mg/dL (70-110); SODIUM SERUM 134.0 mmol/L (136-145); UREA NITROGEN, BLOOD 26.0 mg/dL (7-18)
[2025-04-09] MEDS: EPOETIN ALFA 10,000 UNITS/ML 2 ML VIAL SQ SCH (08:24)
[2025-04-09 18:21] LABS: GLUCOMETER DEV NAME(LOC) 5S.1E; GLUCOSE,POINT OF CARE 93 MG/DL (70-110)
[2025-04-10] VITALS (14 sets, daily range): BP systolic 144–176; BP diastolic 88–111; PULSE 69–80; RESP 15–18; TEMP 97.7–98.4; O2SAT 96–99
[2025-04-10 03:11] LABS: GLUCOMETER DEV NAME(LOC) 5S.1E; GLUCOSE,POINT OF CARE 121 MG/DL (70-110)
[2025-04-10 09:21] LABS: PLATELET COUNT (AUTO) 172 K/uL (150-450); RED BLOOD CELL COUNT(AUTO) 2.89 MIL/uL (4.00-5.20); RED CELL DISTRIBUTION WIDTH 15.0 % (11.5-14.5); WHITE BLOOD COUNT (AUTO) 3.7 K/uL (4.5-11.0)
[2025-04-10] MEDS ORDERED: SODIUM CHLORIDE 0.9% 500 ML IV ONE (15:14)
[2025-04-11] VITALS (7 sets, daily range): BP systolic 128–167; BP diastolic 84–99; PULSE 73–85; RESP 17–18; TEMP 98–98.8; O2SAT 96–99
[2025-04-11] MEDS: SODIUM CHLORIDE 0.9% 1,000 ML IV ONE (06:29)
[2025-04-11] MEDS ORDERED: SODIUM CHLORIDE 0.9% 1,000 ML ONE (06:34)
[2025-04-11] MEDS ORDERED: EPINEPHrine 1:10,000 [1 MG/10 ML] SYRINGE ONE (07:17)
[2025-04-11] MEDS ORDERED: ATROPINE SULFATE 0.1 MG/ML 10 ML SYRINGE IVP ONE (07:17)
[2025-04-11] MEDS ORDERED: FLUMAZENIL 0.1 MG/ML 5 ML VIAL IVP ONE (07:17)
[2025-04-11] MEDS ORDERED: SODIUM TETRADECYL SULFATE 3% 60 MG/2 ML VIAL IVP ONE (07:17)
[2025-04-11] MEDS ORDERED: NALOXONE HCL 0.4 MG/ML VIAL ONE (07:17)
[2025-04-11 08:08] LABS: ASPARTATE AMINOTRANSFERASE 13.0 U/L (15-37); CALCIUM, TOTAL 9.2 mg/dL (8.8-10.5); CREATININE 5.71 mg/dL (0.60-1.30); GLOMERULAR FILTR. RATE CALC 8.0 mL/min (>60); GLUCOSE,RANDOM 80.0 mg/dL (70-110); SODIUM SERUM 138.0 mmol/L (136-145); TOTAL PROTEIN, SERUM 7.3 g/dL (6.4-8.2); UREA NITROGEN, BLOOD 31.0 mg/dL (7-18)
[2025-04-11] MEDS ORDERED: LIDOCAINE/PF 2% 5 ML VIAL ONE (12:00)
[2025-04-11] MEDS ORDERED: PROPOFOL 1% 20 ML VIAL IVP ONE (12:00)
[2025-04-12] VITALS (14 sets, daily range): BP systolic 154–193; BP diastolic 84–117; PULSE 69–86; RESP 17–20; TEMP 98–98.7; O2SAT 97–100
[2025-04-12 06:42] LABS: PLATELET COUNT (AUTO) 194 K/uL (150-450); RED BLOOD CELL COUNT(AUTO) 2.89 MIL/uL (4.00-5.20); RED CELL DISTRIBUTION WIDTH 15.0 % (11.5-14.5); WHITE BLOOD COUNT (AUTO) 4.6 K/uL (4.5-11.0)
[2025-04-12 06:49] LABS: CALCIUM, TOTAL 9.5 mg/dL (8.8-10.5); CREATININE 8.01 mg/dL (0.60-1.30); GLOMERULAR FILTR. RATE CALC 6.0 mL/min (>60); GLUCOSE,RANDOM 88.0 mg/dL (70-110); SODIUM SERUM 136.0 mmol/L (136-145); UREA NITROGEN, BLOOD 52.0 mg/dL (7-18)
[2025-04-12] MEDS ORDERED: CARV12 PO (11:27)
[2025-04-12] MEDS ORDERED: HYDR50TA37 PO (11:27)
== END 2025-04-12 15:40 | disposition home or self-care (01) | DRG 199 ==
LOC: EMS 00:54 → EDH 05:27 → 5N 08:45
PROVIDERS: ADMIT Internal Medicine; ATTEND Internal Medicine
PROC: 5A1D70Z Performance of Urinary Filtration, Intermittent, Less than 6 Hours Per Day (ICD-10-PCS; 2025-04-03)
PROC: 5A1D70Z Performance of Urinary Filtration, Intermittent, Less than 6 Hours Per Day (ICD-10-PCS; 2025-04-04)
PROC: 5A1D70Z Performance of Urinary Filtration, Intermittent, Less than 6 Hours Per Day (ICD-10-PCS; 2025-04-06)
PROC: 5A1D70Z Performance of Urinary Filtration, Intermittent, Less than 6 Hours Per Day (ICD-10-PCS; 2025-04-08)
PROC: 5A1D70Z Performance of Urinary Filtration, Intermittent, Less than 6 Hours Per Day (ICD-10-PCS; 2025-04-10)
PROC: 0DB78ZX Excision of Stomach, Pylorus, Via Natural or Artificial Opening Endoscopic, Diagnostic (ICD-10-PCS; 2025-04-11)
PROC: 0DJ08ZZ Inspection of Upper Intestinal Tract, Via Natural or Artificial Opening Endoscopic (ICD-10-PCS; 2025-04-11)
PROC: 0DB98ZX Excision of Duodenum, Via Natural or Artificial Opening Endoscopic, Diagnostic (ICD-10-PCS; principal; 2025-04-11 08:00)
PROC: 5A1D70Z Performance of Urinary Filtration, Intermittent, Less than 6 Hours Per Day (ICD-10-PCS; 2025-04-12)
DX: I16.0 Hypertensive urgency (principal); C78.7 Secondary malignant neoplasm of liver and intrahepatic bile duct; E44.0 Moderate protein-calorie malnutrition; N18.6 End stage renal disease; D63.1 Anemia in chronic kidney disease; K29.71 Gastritis, unspecified, with bleeding; Z99.2 Dependence on renal dialysis; K44.9 Diaphragmatic hernia without obstruction or gangrene; Z20.822 Contact with and (suspected) exposure to COVID-19; Z59.02 Unsheltered homelessness; K31.84 Gastroparesis; I12.0 Hypertensive chronic kidney disease with stage 5 chronic kidney disease or end stage renal disease; Z85.43 Personal history of malignant neoplasm of ovary; Z86.73 Personal history of transient ischemic attack (TIA), and cerebral infarction without residual deficits; Z90.710 Acquired absence of both cervix and uterus
CPT/HCPCS: 71045; 74176; 80048; 80053; 80076; 82962; 83036; 83735; 84100; 84703; 85025; 87081; 87340; 88305; 90935; 93005; 99285; J0169; J0360; J0461; J0885; J1171; J1200; J1644; J2270; J2312; J2405; J2470; J2704; J3490; J7030; J7040; 36415-L1; 36415-TC